=== PATIENT | female | born 1950 | race Caucasian/White ===

== ENCOUNTER → 2020-03-09 12:56 | Outpatient (BNVA) | payer MEDICARE, SELFPAY | PROVIDERS: Referring Provider Internal Medicine; Visit Provider Internal Medicine | DX: I48.92 Unspecified atrial flutter (principal); I48.0 Paroxysmal atrial fibrillation; I25.10 Atherosclerotic heart disease of native coronary artery without angina pectoris; I34.1 Nonrheumatic mitral (valve) prolapse; R29.91 Unspecified symptoms and signs involving the musculoskeletal system | CPT/HCPCS: 93005; 99212 ==

== ENCOUNTER 2020-04-27 13:01 | Outpatient (REF) | payer MEDICARE, SELFPAY ==
[2020-04-27 13:50] LABS: MANUAL DIFF FLAG NO
[2020-04-27 13:57] LABS: Basophils Percent Auto 0.4 % (0-2); Eosinophils Absolute Auto 0.1 X10*3/uL (0.0-0.4); Eosinophils Percent Auto 1.6 % (0-4); Hematocrit 43.1 % (37-47); Hemoglobin 13.7 g/dl (12.0-16.0); Imm Gran Abs Auto 0.01 X10*3/uL (0.00-0.03); Imm Gran Pct Auto 0.2 % (0.0-0.4); Lymphocytes Absolute Auto 1.6 X10*3/uL (1.2-4.9); Mean Corpuscular HGB Conc 31.8 g/dl (31.0-35.0); Mean Corpuscular Hemoglobin 29.6 pg (27.0-33.0); Mean Corpuscular Volume 93.1 fL (80-98); Mean Platelet Volume 9.2 fL (9.4-12.3); Monocytes Absolute Auto 0.6 X10*3/uL (0.1-1.2); Monocytes Percent Auto 12.8 % (2-11); Neutrophils Absolute Auto 2.6 X10*3/uL (2.0-8.3); Platelet Count 213 X10*3/uL (160-400); Red Blood Count 4.63 X10*6/uL (4.20-5.50); Red Cell Distribution Width 13.7 % (11.0-16.0); White Blood Count 4.9 X10*3/uL (4.8-10.8)
[2020-04-27 14:47] LABS: Alanine Aminotransferase 12 U/L (0-31); Alkaline Phosphatase 61 U/L (39-117); Anion Gap 11 (12-20); Aspartate Amino Transferase 16 U/L (5-31); Bilirubin Total 0.9 mg/dL (0.0-1.0); Blood Urea Nitrogen 18 mg/dL (9-16); Calcium 8.8 mg/dL (8.4-10.2); Carbon Dioxide 29 mmol/L (22-29); Chloride 106 mmol/L (96-108); Estimated Glomerular Filt Rate > 60; Glucose Random 84 mg/dL (60-115); Potassium 4.8 mmol/l (3.3-5.1); Sodium 141 mmol/L (135-145); Total Protein 6.7 g/dL (6.5-8.0)
[2020-04-27 14:55] LABS: Thyroid Stimulating Hormone 2.78 uIU/mL (0.32-4.0)
[2020-04-28 14:12] LABS: Anti Nuclear Antibody Screen NEGATIVE (NEGATIVE)
== END 2020-04-27 13:02 | disposition home or self-care (01) ==
LOC: HO.LAB 13:01
PROVIDERS: Absent Provider Internal Medicine; PCP Internal Medicine; Visit Provider Internal Medicine
DX: I48.0 Paroxysmal atrial fibrillation (principal); R63.5 Abnormal weight gain; I10 Essential (primary) hypertension; Q87.40 Marfan syndrome, unspecified
CPT/HCPCS: 36415; 80053; 84443; 85025; 86038; 86039

== ENCOUNTER → 2020-05-17 10:22 | Outpatient (REF) | payer MEDICARE, SELFPAY ==
--- NOTE | 2020-05-17 10:25 | CA_ITS ---
Transthoracic Echocardiogram Patient (Last, First, Middle): Chica Douglas A Gender: Female Date of : 1950 Age: 70 Procedure Date: 05/17/2020 Procedure Type: Transthoracic Echocardiogram Location: OP Height: 167.64 cm Weight: 70.31 kg BSA: 1.79 m2 Heart Rate: bpm BP: 110 / 68 mmHg [employer] Setter: TIARRA Referring MD: Jarett Mendez MD Symptoms: I34.1 - Nonrheumatic mitral (valve) prolapse Study Quality: Technically Difficult ECG Rhythm: Sinus Conclusions: - 1. Technically difficult study and parasternal windows were not obtained due to thoracic abnormality 2. On apical view left ventricular systolic function appears normal with approximate LVEF of 60 65% 3. Valves are not well visualized but there is evidence of mild to-moderate mitral regurgitation 4. Normal RV systolic pressure 5. No gross pericardial effusion Findings Left Ventricle Normal left ventricular size and systolic function. The visually estimated ejection fraction is between 60-65%. Spectral Doppler is indicative of a normal filling pattern. Right Ventricle Normal right ventricular cavity size and systolic function. Atria The left atrium is likely dilated. There is a mobile atrial septum noted. Interatrial shunt cannot be excluded. The right atrium is mildly dilated. Aortic Valve The aortic valve was not well visualized. There is no aortic valve stenosis. Mitral Valve The mitral valve was not well visualized. There is mild anterior mitral leaflet thickening. There is mild to moderate mitral valve regurgitation. There is no mitral valve stenosis. Pulmonic Valve The pulmonic valve was not well visualized. Tricuspid Valve Likely normal tricuspid valve structure and function. The right ventricular systolic pressure is normal. There is no evidence of pulmonary hypertension. Great Vessels The aorta was not well visualized. The pulmonary artery was not well visualized. Venous The inferior vena cava was not well visualized. Pericardium/Pleural The pericardium was not well visualized. Prior Study Comparison No significant change compared to prior study dated: 03/27/2017. Measurements 2D Linear Measurements Ao Root: 3.40 2.1-3.5 cm LA Diam: 3.60 2.7-3.8/3.0-4.0 cm LAIDs Index: 2.01 1.5-2.3 cm/m2 Mitral Valve MV Pk E: 0.97 MV PK A: 0.70 MV Decel Time: 190.00 E/A: 1.40 E'Lateral: 13.10 E'Medial: 5.87 E/E' Med: 16.40 E/E' Lat: 7.40 PHT: 56.00 MVA PHT: 3.93 Decel [place]: 5.08 Aortic Valve AoV Pk [place]: 1.08 AoV Pk Grad: 5.00 LVOT LVOT Pk [place]: 0.74 LVOT Pk Grad: 2.00 Diastolic Function MV Pk E: 0.97 MV Pk A: 0.70 E/A: 1.40 E'Medial: 5.87 E/E' Med: 16.40 E' Laterial: 13.10 E/E' Lat: 7.40 Tricuspid Valve TR Pk [place]: 2.80 TR Pk Grad: 31.00 Great Vessels Aorta Ao Root-2D: 3.40 2.0-3.7 cm Ao Asc: 3.50 2.1-3.4 cm Updated in Other Vendor System with Status of Final Ellis Huffman MD electronically signed on 05/18/2020 12:36:08 PM with status of Final
== END ==
LOC: HO.CARD 10:22
PROVIDERS: Visit Provider Internal Medicine
DX: I34.1 Nonrheumatic mitral (valve) prolapse (principal); I25.10 Atherosclerotic heart disease of native coronary artery without angina pectoris
CPT/HCPCS: 93306

== ENCOUNTER → 2020-06-06 12:16 | Outpatient (BNVA) | payer MEDICARE, SELFPAY | PROVIDERS: PCP Internal Medicine; Visit Provider Internal Medicine | DX: I48.0 Paroxysmal atrial fibrillation (principal); I48.92 Unspecified atrial flutter; I25.10 Atherosclerotic heart disease of native coronary artery without angina pectoris; I34.1 Nonrheumatic mitral (valve) prolapse; R29.91 Unspecified symptoms and signs involving the musculoskeletal system | CPT/HCPCS: 93005; 99212 ==

== ENCOUNTER → 2020-06-15 14:41 | Outpatient (REF) | payer MEDICARE, SELFPAY ==
--- NOTE | 2020-06-15 15:58 | ECG_ITS ---
Hook-up date: 2020-06-15 15:53:00 Duration: 47:59:00 Test Indications: PAF, PALPITATIONS Medications: 231934 QRS complexes 49 Ventricular ectopics which represent <1 % of total QRS comp. 155 Supraventricular ectopics which represent <1 % of total QRS comp. * Paced QRS complexs which represent % of total QRS comp. VENTRICULAR ECTOPY 49 Isolated 0 Bigeminal Cycles 0 Couplets 0 Runs 0 Beats in Runs * Beats LONGEST at * BPM at :: -- * Beats FASTEST at * BPM at :: -- SUPRAVENTRICULAR ECTOPY 127 Isolated 11 Couplets 2 Runs 6 Beats in Runs 3 Beats LONGEST at 159 BPM at 19:23:48 2020-06-15 3 Beats FASTEST at 159 BPM at 19:23:48 2020-06-15 HEART RATES 54 MIN at 05:27:14 2020-06-16 62 AVG 82 MAX at 20:54:01 2020-06-15 LONGEST RR 1.3200 secs at 04:56:13 2020-06-17 S-T LEVELS Channel 1 - 128 mm at 15:53:00 2020-06-15 - 128 mm at 15:53:00 2020-06-15 Channel 2 - 128 mm at 15:53:00 2020-06-15 - 128 mm at 15:53:00 2020-06-15 Channel 3 - 128 mm at 03:51:21 -- - 128 mm at 03:51:21 Basic rhythm Normal sinus rhythm No long pause or profound bradycardia Frequent Sinus bradycardia , 47 % of time HR < 60 bpm No sustained Atrial fibrillation Occasional Premature atrial complexes No diary submitted Referred By: Jarett Mendez Overread By: SETH MARTIN MD
== END ==
LOC: HO.CARD 14:41
PROVIDERS: PCP Internal Medicine; Visit Provider Internal Medicine
DX: R00.2 Palpitations (principal); I48.0 Paroxysmal atrial fibrillation
CPT/HCPCS: 93226

== ENCOUNTER → 2020-07-21 10:23 | Outpatient (BNVA) | payer MEDICARE, SELFPAY | PROVIDERS: PCP Internal Medicine; Visit Provider Internal Medicine | DX: I48.0 Paroxysmal atrial fibrillation (principal); I48.92 Unspecified atrial flutter; I25.10 Atherosclerotic heart disease of native coronary artery without angina pectoris; I34.1 Nonrheumatic mitral (valve) prolapse; R29.91 Unspecified symptoms and signs involving the musculoskeletal system | CPT/HCPCS: 93005; 99212 ==

== ENCOUNTER 2020-12-02 12:39 | Outpatient (REF) | payer MEDICARE, SELFPAY ==
--- NOTE | ~2020-12-02 | MM_ITS ---
EXAMINATION: MM DIAGNOSTIC DIGITAL BREAST TOMOSYNTHESIS, BILATERAL US DIAGNOSTIC ULTRASOUND BREAST, LEFT CLINICAL INFORMATION: Palpable fullness and pain retroareolar left breast for 2 weeks, symptoms improved on antibiotics for approximately one week. Due for yearly. Family history breast cancer, maternal aunt. The lifetime risk of breast cancer based on the Tyrer-Cuzick Model is 5%. COMPARISON: Mammography: 02/08/2017, 11/17/2014, targeted right breast ultrasound 11/17/2014,02/08/2017, 02/09/2017. TECHNIQUE: Digital breast tomosynthesis is performed in both the craniocaudal and mediolateral oblique views along with computer-aided detection (CAD). Synthesized 2D images are generated from the tomosynthesis. Additional views are provided: Right CC, left CC x2. Ultrasound left breast is targeted to the nipple areolar complex, retroareolar and periareolar region. Grayscale imaging and color Doppler are performed without and with harmonics. FINDINGS: There are scattered areas of fibroglandular density (ACR BI-RADS breast composition Category b). Parenchymal pattern is similar to prior study. There is no skin thickening or coarsening of the Cosmo's ligaments. No interval parenchymal asymmetry or mass or architectural abnormality. No abnormal calcifications. Known cyst posterior 3:00 right breast is moderately decreased from prior exams. Ultrasound left breast demonstrates no cystic or solid mass, architectural abnormality, or focal duct ectasia. No focal skin thickening or edema tracking in the soft tissue planes. No hyperemia. Results are discussed with the patient at time of visit. MM/MM tomosynthesis diagnostic BI IMPRESSION: 1. No mammographic evidence of malignancy or focal inflammatory changes. 2. Unremarkable targeted left breast ultrasound. ASSESSMENT: BI-RADS 2: Benign RECOMMENDATION: 1. Patient should be managed based on the clinical impression. 2. Otherwise, routine annual screening mammography. This patient's information was entered into a reminder system with a target due date for their next mammogram.
== END 2020-12-02 12:40 | disposition home or self-care (01) ==
LOC: HO.MAMMO 12:39
PROVIDERS: PCP Internal Medicine; Visit Provider Internal Medicine
DX: N60.02 Solitary cyst of left breast (principal); Z80.3 Family history of malignant neoplasm of breast
CPT/HCPCS: 76642; 77062; 77066

== ENCOUNTER 2021-01-11 12:51 | Outpatient (REF) | payer MEDICARE, SELFPAY ==
--- NOTE | ~2021-01-11 | MM_ITS ---
EXAMINATION: BONE DENSITOMETRY CLINICAL INDICATION: Menopausal. COMPARISON: Previous BD dated 10/31/2009 and baseline BD dated 05/08/2005. TECHNIQUE: Using a Qype DXA System (software version: 13.1) manufactured by [employer], dual-energy x-ray absorptiometry was performed of the lumbar spine and left hip. The images are of good technical quality. Summary results are attached. FINDINGS: AP SPINE L1-L4: There is curvature lumbar spine and degenerative changes which may cause overestimation of the lumbar bone mineral density. Current: BMD 0.834 g/cm2, Z-score -1.4, T-score -2.9, osteoporosis, 4.0% decrease from previous, 10.7% decrease from baseline (<5% change is not significant). Prior: BMD 0.869 g/cm2. Baseline: BMD 0.934 g/cm2. LEFT FEMUR, NECK: Current: BMD 0.573 g/cm2, Z-score -1.7, T-score -3.3, osteoporosis. Prior: BMD 0.785 g/cm2. Baseline: BMD 0.793 g/cm2. LEFT FEMUR, TOTAL: Current: BMD 0.601 g/cm2, Z-score -1.8, T-score -3.2, osteoporosis, 18.1% decrease from previous, 19.2% decrease from baseline (<5% change is not significant). Prior: BMD 0.734 g/cm2. Baseline: BMD 0.744 g/cm2. IDENTIFIED RISK FACTORS: Menopause, family history (parent hip fracture), height loss, low calcium intake. HISTORY OF FRACTURE: None listed. MEDICATIONS: None listed. MM/XR DEXA axial skeleton IMPRESSION: 1. DIAGNOSIS: Osteoporosis based on the lowest T-score value of -3.3 in the femoral neck applying World Health Organization criteria. 2. 10-YEAR FRACTURE RISK PREDICTION, FRAX: Major osteoporotic fracture (clinical spine, forearm, hip or shoulder) 42.0%. Hip fracture 27.8%. 3. Treatment Recommendations: NOF guidelines recommend consideration for treatment in postmenopausal women and men age 50 and older presenting with the following: -A hip or vertebral (clinical or morphometric) fracture. -T-score less than or equal to -2.5 at the femoral neck or spine after appropriate evaluation to exclude secondary causes. -Low bone mass at the hip or spine and a 10-year fracture probability by FRAX of greater than or equal to 3% for hip fracture or greater than or equal to 20% for major osteoporotic fracture based on the [place] adapted WHO algorithm. 4. Other Recommendations: All treatment decisions require clinical judgment and consideration of individual patient factors, including patient preferences, comorbidities, previous drug use, risk factors not captured in the FRAX model (e.g. frailty, falls, vitamin D deficiency, increased bone turnover, interval significant decline in bone density) and possible under or overestimation of fracture risk by FRAX. Additional medical evaluation for secondary cause of low bone mineral density may be appropriate. FUTURE SCAN RECOMMENDATION: People with diagnosed cases of osteoporosis or at high risk for fracture should have regular bone mineral density tests. For patients eligible for Medicare, routine testing is allowed once every 2 years. The testing frequency can be increased to one year for patients who have rapidly progressing disease, those who are receiving or discontinuing medical therapy to restore bone mass, or have additional risk factors.
== END 2021-01-11 12:52 | disposition home or self-care (01) ==
LOC: HO.MAMMO 12:51
PROVIDERS: Visit Provider Obstetrics & Gynecology
DX: Z13.820 Encounter for screening for osteoporosis (principal); Z78.0 Asymptomatic menopausal state
CPT/HCPCS: 77080

== ENCOUNTER → 2021-01-19 10:24 | Outpatient (BNVA) | payer MEDICARE, SELFPAY | PROVIDERS: PCP Internal Medicine; Referring Provider Internal Medicine; Visit Provider Internal Medicine | DX: I48.0 Paroxysmal atrial fibrillation (principal); I48.92 Unspecified atrial flutter; I25.10 Atherosclerotic heart disease of native coronary artery without angina pectoris; I34.1 Nonrheumatic mitral (valve) prolapse; I71.9 Aortic aneurysm of unspecified site, without rupture; R29.91 Unspecified symptoms and signs involving the musculoskeletal system | CPT/HCPCS: 93005; 99212 ==

== ENCOUNTER 2021-07-18 09:04 | Outpatient (REF) | payer MEDICARE, SELFPAY ==
[2021-07-18 11:15] LABS: MANUAL DIFF FLAG NO
[2021-07-18 11:41] LABS: Basophils Percent Auto 0.4 % (0-2); Eosinophils Absolute Auto 0.1 X10*3/uL (0.0-0.4); Eosinophils Percent Auto 1.9 % (0-4); Hematocrit 47.7 % (37.0-47.0); Hemoglobin 14.6 g/dl (12.0-16.0); Imm Gran Abs Auto 0.01 X10*3/uL (0.00-0.03); Imm Gran Pct Auto 0.2 % (0.0-0.4); Lymphocytes Absolute Auto 1.6 X10*3/uL (1.2-4.9); Lymphocytes Percent Auto 32.7 % (20-40); Mean Corpuscular HGB Conc 30.6 g/dl (31.0-35.0); Mean Corpuscular Hemoglobin 29.1 pg (27.0-33.0); Mean Corpuscular Volume 95.2 fL (80.0-98.0); Mean Platelet Volume 9.4 fL (9.4-12.3); Monocytes Absolute Auto 0.6 X10*3/uL (0.1-1.2); Monocytes Percent Auto 12.8 % (2-11); Neutrophils Absolute Auto 2.5 x10*3/uL (2.0-8.3); Platelet Count 218 X10*3/uL (160-400); Red Blood Count 5.01 X10*6/uL (4.20-5.50); Red Cell Distribution Width 14.3 % (11.0-16.0); White Blood Count 4.9 X10*3/uL (4.8-10.8)
[2021-07-18 12:02] LABS: Alanine Aminotransferase 10 U/L (0-31); Albumin Level 3.8 g/dL (3.5-5.0); Alkaline Phosphatase 54 U/L (39-117); Anion Gap 11 (12-20); Aspartate Amino Transferase 15 U/L (5-31); Bilirubin Total 0.8 mg/dL (0.0-1.0); Blood Urea Nitrogen 15 mg/dL (9-16); Calcium 9.1 mg/dL (8.4-10.2); Carbon Dioxide 30 mmol/L (22-29); Chloride 105 mmol/L (96-108); Cholesterol 256 mg/dL; Estimated Glomerular Filt Rate > 60; Glucose Fasting 90 mg/dL (60-99); HDL Cholesterol 54 mg/dL; LDL Cholesterol Calculated 184 mg/dl; Potassium 4.5 mmol/L (3.3-5.1); Sodium 141 mmol/L (135-145); Total Protein 6.8 g/dL (6.5-8.0); Triglycerides 93 mg/dL
[2021-07-18 12:06] LABS: Thyroid Stimulating Hormone 3.37 uIU/mL (0.32-4.0)
== END 2021-07-18 09:05 | disposition home or self-care (01) ==
LOC: HO.HMGCLDS 09:04
PROVIDERS: PCP Internal Medicine; Visit Provider Internal Medicine
DX: I25.10 Atherosclerotic heart disease of native coronary artery without angina pectoris (principal); I48.0 Paroxysmal atrial fibrillation; E78.00 Pure hypercholesterolemia, unspecified; M81.0 Age-related osteoporosis without current pathological fracture
CPT/HCPCS: 36415; 80053; 80061; 82306; 84443; 85025

== ENCOUNTER 2021-07-27 13:42 | Outpatient (REF) | payer MEDICARE, SELFPAY ==
--- NOTE | ~2021-07-27 | CT_ITS ---
EXAMINATION: CT ANGIOGRAM CHEST CLINICAL INFORMATION: Aortic aneurysm COMPARISON: Chest CT on 08/12/2019 TECHNIQUE: Multiple axial images were obtained through the chest after the administration of 70 mL of Omnipaque 350 intravenous contrast. Extensive vascular post-processing including two-dimensional and three-dimensional reformatted images were created and reviewed on an independent workstation. This CT examination was performed using dose optimization techniques as appropriate, variously including the following: *Automated exposure control *Adjustment of mA and/or kV according to patient size (this includes techniques or standardized protocols for targeted exams where dose is matched to indication/reason for exam; i.e. extremities or head) *Use of iterative reconstruction technique DLP: 136 mGy-cm FINDINGS: Heart/Aorta: Severe pectus excavatum. The heart is globally normal in size. The coronary arteries arise from the expected coronary sinuses; there is no anomaly of coronary arterial origin. The thoracic aorta is normal in course and caliber. Mild calcific atherosclerotic disease. There is no evidence of aortic dissection, intramural hematoma, or atherosclerotic penetrating ulcer. Aortic arch anatomy is conventional. Other Cardiovascular: The main pulmonary artery is normal in caliber. The well opacified portions of the pulmonary arterial system are patent. There is no pericardial effusion or pericardial thickening. Mediastinum/Debbi: There are no pathologically enlarged mediastinal or hilar lymph nodes. Pleura: The pleural surfaces are normal bilaterally. There is no pleural effusion. There is no pneumothorax. Lungs: Posterior bibasilar atelectasis. There are scattered areas of tree-in-bud opacities and groundglass attenuation in the right middle and anterior right lower lobes. Airways: The central airways are patent. The peripheral airways are normal. There is no bronchiectasis. Upper Abdomen: The incompletely imaged upper abdomen is unremarkable. Musculoskeletal: There is no aggressive osseous lesion. The structures of the chest wall, including the bones, are normal for age. CT/CT angio chest aorta IMPRESSION: 1. Normal caliber thoracic aorta. 2. Redemonstration of scattered areas of tree-in-bud opacities groundglass attenuation consistent with infection/inflammatory disease.
[2021-07-27] MEDS: iohexoL 350 MG/ML 100 ML INFUS..BTL IV (15:24)
== END 2021-07-27 13:43 | disposition home or self-care (01) ==
LOC: HO.CT 13:42
PROVIDERS: Visit Provider Internal Medicine
DX: I71.9 Aortic aneurysm of unspecified site, without rupture (principal); R29.91 Unspecified symptoms and signs involving the musculoskeletal system
CPT/HCPCS: 71275; Q9967

== ENCOUNTER → 2021-09-19 12:52 | Outpatient (REF) | payer MEDICARE, SELFPAY ==
--- NOTE | 2021-09-19 12:55 | CA_ITS ---
Transthoracic Echocardiogram Patient (Last, First, Middle): Chica Douglas A Gender: Female Date of : 1950 Age: 71 Procedure Date: 09/19/2021 Procedure Type: Transthoracic Echocardiogram Location: OP Height: 167.64 cm Weight: 72.58 kg BSA: 1.82 m2 Heart Rate: bpm BP: 116 / 60 mmHg [place]: Referring MD: Jarett Mendez MD Symptoms: I34.1 - Nonrheumatic mitral (valve) prolapse Study Quality: Technically Difficult ECG Rhythm: Sinus Conclusions: - The left ventricular systolic function is normal. The visually estimated ejection fraction is between 60-65%. - There is moderate posterior mitral leaflet prolapse. There is mild mitral valve regurgitation. - Mild pulmonary hypertension is present. Findings Left Ventricle Normal left ventricular cavity size. There is mildly increased left ventricular wall thickness. The left ventricular systolic function is normal. The visually estimated ejection fraction is between 60-65%. Regional wall motion abnormalities can not be excluded due to suboptimal endocardial definition. Diastolic function is normal for age. Right Ventricle The right ventricle was not well visualized. Normal right ventricular cavity size. There is normal right ventricular systolic function. Atria Both atria are normal in size. Aortic Valve There is a normal trileaflet aortic valve. There is no aortic valve stenosis. There is trace (trivial) aortic valve regurgitation. 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 There is mild mitral annular calcification. There is moderate posterior mitral leaflet prolapse. There is mild mitral valve regurgitation. There is no mitral valve stenosis. Pulmonic Valve The pulmonic valve was not well visualized. Tricuspid Valve The tricuspid valve was not well visualized. There is trace tricuspid valve regurgitation. The right ventricular systolic pressure is 39 mmHg. Mild pulmonary hypertension is present. Great Vessels The asc aorta is normal in size. Venous The inferior vena cava was not well visualized. Pericardium/Pleural There is no evidence of pericardial effusion. Prior Study Comparison No significant change compared to prior study dated: 05/17/2020. Measurements 2D Linear Measurements IVSd: 1.06 0.6-0.9/0.6-1.0 cm LVIDd: 4.65 3.9-5.3/4.2-5.9 cm LVIDd Index: 2.55 2.4-3.2/2.2-3.1 cm/m2 LVIDs: 2.89 2.0-3.6 cm LVPWd: 1.16 0.7-1.1 cm Ao Root: 3.50 2.1-3.5 cm LA Diam: 3.80 2.7-3.8/3.0-4.0 cm LAIDs Index: 2.09 1.5-2.3 cm/m2 LV Mass: 232.65 67-162/88-224 g LV Mass Index: 127.83 43-95/49-115 g/m2 LVOT Diam: 2.40 3.0+(-)1.3 cm 2D Systolic Function EF 4C: 50.40 >55% EF 2C: 80.60 >55% Mitral Valve MV Pk E: 0.73 MV PK A: 0.58 MV Decel Time: 238.00 E/A: 1.30 E'Lateral: 7.72 E'Medial: 5.98 E/E' Med: 12.20 E/E' Lat: 9.40 PHT: 70.00 MVA PHT: 3.14 Decel [place]: 3.06 Aortic Valve AoV Pk [place]: 1.23 AoV Mn [place]: 0.82 AoV VTI: 0.32 AoV Pk Grad: 6.00 Aov Mn Grad: 3.00 JOE Cont.VTI: 3.01 LVOT LVOT Pk [place]: 0.88 LVOT Mn [place]: 0.52 LVOT VTI: 0.21 LVOT Pk Grad: 3.00 LVOT Mn Grad: 1.00 LVOT Diam: 2.40 LVOT Area: 4.52 Diastolic Function MV Pk E: 0.73 MV Pk A: 0.58 E/A: 1.30 E'Medial: 5.98 E/E' Med: 12.20 E' Laterial: 7.72 E/E' Lat: 9.40 Right Ventricle TAPSE (mm): 21.20 TVS' [place]: 7.29 Tricuspid Valve TR Pk [place]: 2.91 TR Pk Grad: 34.00 RVSP: 39.00 Great Vessels Aorta Ao Root-2D: 3.50 2.0-3.7 cm Sinus of Valsalva: 3.50 2.0-3.5 cm Ao Asc: 3.00 2.1-3.4 cm Pulmonary Valve PV Pk [place]: 0.69 Peak PV Grad: 2.00 Updated in Other Vendor System with Status of Final Jarett Mendez MD electronically signed on 09/24/2021 1:16:40 PM with status of Final
== END ==
LOC: HO.CARD 12:52
PROVIDERS: Visit Provider Internal Medicine
DX: I34.1 Nonrheumatic mitral (valve) prolapse (principal)
CPT/HCPCS: 93306

== ENCOUNTER → 2021-09-25 14:28 | Outpatient (BNVA) | payer MEDICARE, SELFPAY | PROVIDERS: PCP Internal Medicine; Referring Provider Internal Medicine; Visit Provider Internal Medicine | DX: R53.83 Other fatigue (principal); I48.0 Paroxysmal atrial fibrillation; I48.92 Unspecified atrial flutter; I25.10 Atherosclerotic heart disease of native coronary artery without angina pectoris; I34.1 Nonrheumatic mitral (valve) prolapse; R29.91 Unspecified symptoms and signs involving the musculoskeletal system | CPT/HCPCS: 93005; 99212 ==

== ENCOUNTER 2021-09-26 23:59 | Emergency (ER) | payer MEDICARE, SELFPAY ==
[2021-09-27 00:09] VITALS: BP 126/73; BP 150/88; PULSE 64; RESP 18; TEMP 36.4; O2SAT 92; O2SAT 94; BMI 26.6
--- NOTE | 2021-09-27 00:09 | ED_ITS ---
History of Present Illness General Chief Complaint: Epistaxis Stated Complaint: nose bleed Time Seen by Provider: 09/27/21 00:09 Source: patient and EMS Mode of arrival: EMS Limitations: no limitations History of Present Illness HPI Narrative: This is a 71-year-old female past medical history significant for atrial fibrillation currently anticoagulated on Eliquis, hypertension, arthrosclerotic cardiovascular disease presenting to the emergency department with a bloody nose since around 10 30 tonight. Patient tells me this bloody nose started suddenly after she took her Eliquis. She tells me she takes Eliquis twice a day once in the morning and once at night. Patient tells me she tried to apply some press ure however a CT bleeding. She tells me she had a similar episode last . She is also reporting urinary frequency, urgency and suprapubic discomfort. Denies headache, weakness, vision changes, nausea, vomiting, chest pain, shortness of breath fevers, chills. No known bleeding disorder. Denies trauma Location: Yes right nares Onset/current episode: Yes hour(s) (2) Duration: Yes constant Pertinent past history: Yes hypertension Context: Yes history of previous nose bleed (last ) Treatment prior to arrival: Yes none Related Data Home Medications Medication Instructions Recorded Confirmed alprazolam 0.25 mg tablet 0.25 mg PO BID-TID 03/09/20 09/25/21 bimatoprost 0.01 % eye drops drp ophthalmic (eye) 06/06/20 09/25/21 Previous Rx's Medication Instructions Recorded metoprolol tartrate 25 mg tablet 25 mg PO TID 90 days #270 tabs 11/14/20 apixaban 5 mg tablet (Eliquis) 5 mg PO BID 90 days #180 tabs 02/22/21 furosemide 40 mg tablet 40 mg PO DAILY #90 tabs 02/27/21 dronedarone 400 mg tablet (Multaq) 400 mg PO BID #180 tabs 06/06/21 cefuroxime axetil 250 mg tablet 250 mg PO BID 5 days #10 tabs 09/27/21 Allergies Allergy/AdvReac Type Severity Reaction Status Date / Time ciprofloxacin [CIPROFLOXACIN] Allergy Intermediate RASH Verified 09/27/21 00:09 atorvastatin [Lipitor] Allergy Unknown unknown Verified 09/27/21 00:09 Penicillins [PENICILLINS] Allergy Unknown RASH Verified 09/27/21 00:09 shellfish derived Allergy Unknown UNKNOWN Verified 09/27/21 00:09 [SHELLFISH DERIVED] Sulfa (Sulfonamide Allergy Unknown ITCHY, ? Verified 09/27/21 00:09 Antibiotics) [SULFA (SULFONAMIDE ANTIBIOTICS)] Review of Systems Review of Systems: Constitutional : No Weight loss, No Fever, No Chills, No Fatigue, No Malaise ENT/Mouth : No sore throat, No Rhinorrhea Eyes: No Eye Pain, No Swelling, No Redness Cardiovascular : No Chest Pain, No SOB, No Dyspnea on Exertion, No Orthopnea, No Edema, No Palpitations Respiratory : No Cough, No Sputum, No Wheezing Gastrointestinal : No Nausea, No Vomiting, No Diarrhea, No Constipation, No abdominal Pain, No Hematochezia, No Melena Genitourinary : No Dysuria, No Urinary Frequency, No Hematuria, Musculoskeletal : No joint pain, No Myalgias, No Joint Swelling Skin : No Skin Lesions, No rash Neuro : No Weakness, No Numbness, No Dizziness, No Headache Psych : No Anxiety/Panic, No Depression Heme/Lymph: No Bruising, + Bleeding,No Lymphadenopathy All other systems reviewed and are negative Yes all other systems are reviewed and are negative [facility] Past Medical History Attestation statement: The following information was validated with the patient. Source: old records reviewed and nursing notes reviewed Surgical History History of cardioversion Family History Family History Father No problems noted. Mother No problems noted. Social History Social History Alcohol intake: never Patient Tobacco Use Status: Former Tobacco user Use of substances other than those prescribed or required for medical reasons: No Advance Directives: No Physical Exam Vital Signs: Vital Signs: Last Vital Signs Temp 97.6 F 09/27/21 00:09 Pulse 58 09/27/21 01:48 Resp 18 09/27/21 01:48 BP 122/66 09/27/21 01:48 Pulse Ox 90 L 09/27/21 01:48 O2 Del Method 06/15/22 01:48 BMI result Body Mass Index 26.6 Appearance: Alert.? Oriented X3.? No acute distress.? Head: Normocephalic, atraumatic, no step-offs or deformities Eyes: Pupils equal, round and reactive to light.? ENT: Pharynx normal.?+ active bleeding from the right nares Neck: Normal inspection.? Neck supple.? CVS: Normal heart rate and rhythm.? Pulses normal.? Respiratory: No respiratory distress.? Breath sounds normal.? Abdomen: Soft and nontender.? Skin: Skin warm and dry.? Normal skin color.? Normal skin turgor.? Extremities: No lower extremity edema.? No calf ttp. 5/5 strength to bilateral upper and lower extremities Back: No midline tenderness, no C-spine tenderness, full range of motion, no CVA tenderness bilaterally Neuro: Oriented X 3.? No motor deficit.? No sensory deficit. CN 2-12 intact Course Reevaluation(s) Reevaluation #1: CBC within normal limits no signs of acute blood loss anemia. Chemistry with no acute findings. Urine pending. After administration of Afrin patient's nose is no longer bleeding. Time: 01:30 Reevaluation #2: Patient's urine with trace leukocyte esterases she is reporting urinary frequency, urgency and suprapubic discomfort therefore will treat for symptoms with antibiotics Ceftin 250 mg p.o. b.i.d. x7 days. Advised her to return with new or worsening symptoms. At this time patient's nosebleed completely stopped. Time: 01:59 Reevaluation #3: Re-evaluated patient. She tells me she is much better, no longer bleeding. At this time patient will be discharged home will give her follow-up with ENT. Advised her to follow-up with her inventory controller who is her Eliquis prescriber. Patient hemodynamically stable with stable vital signs. No complaints. She will be discharged on Ceftin for symptomatic UTI. Time: 02:32 MDM - Epistaxis [facility] Narrative Medical decision making narrative: 0013 71-year-old female presents with epistaxis x2 hours from the right nares. Currently on Eliquis. Similar episode last . Also reports urinary frequency, urgency x1 week and suprapubic discomfort. Physical examination significant for active bleeding to the right nares. Regular rate and rhythm. Lungs clear. Abdomen soft nontender nondistended. Neuro exam nonfocal. Vital signs stable. Plan at this time is to obtain basic labs, urine and spray Afrin into patient's nose and hold pressure. Medical Records Attestation: I reviewed the patient's medical records. Lab Data Attestation: I reviewed the patient's lab results. Result diagrams: 09/27/21 00:42 09/27/21 00:42 Labs: Lab Results 09/27/21 09/27/21 09/27/21 Range/Units 00:42 00:42 01:19 WBC 5.0 (4.8-10.8) X10*3/uL RBC 4.61 (4.20-5.50) X10*6/uL Hgb 13.4 (12.0-16.0) g/dl Hct 42.2 (37.0-47.0) % MCV 91.5 (80.0-98.0) fL MCH 29.1 (27.0-33.0) pg MCHC 31.8 (31.0-35.0) g/dl RDW 14.1 (11.0-16.0) % Plt Count 176 (160-400) X10*3/uL MPV 9.0 L (9.4-12.3) fL Immature Gran % (Auto) 0.2 (0.0-0.4) % Neut % (Auto) 49.2 (45-73) % Lymph % (Auto) 33.5 (20-40) % [place] % (Auto) 14.9 H (2-11) % Eos % (Auto) 2.0 (0-4) % Baso % (Auto) 0.2 (0-2) % Lymph # (Auto) 1.7 (1.2-4.9) X10*3/uL [place] # (Auto) 0.7 (0.1-1.2) X10*3/uL Eos # (Auto) 0.1 (0.0-0.4) X10*3/uL Baso # (Auto) 0.0 (0.0-0.2) X10*3/uL Abs Immat Gran (auto) 0.01 (0.00-0.03) X10*3/uL Absolute Neuts (auto) 2.4 (2.0-8.3) x10*3/uL Absolute Nucleated RBC 0.000 (0.0-0.012) X10*3/uL Nucleated RBC % (auto) 0.0 (0.0-0.2) /100WBC Sodium 137 (135-145) mmol/L Potassium 4.5 (3.3-5.1) mmol/L Chloride 103 (96-108) mmol/L Carbon Dioxide 27 (22-29) mmol/L Anion Gap 12 (12-20) BUN 15 (9-16) mg/dL Creatinine 0.73 (0.5-1.4) mg/dL Estim Creat Clear Calc 71.0 Estimated GFR > 60 Random Glucose 102 (60-115) mg/dL Calcium 8.7 (8.4-10.2) mg/dL Total Bilirubin 0.7 (0.0-1.0) mg/dL AST 20 (5-31) U/L ALT 9 (0-31) U/L Alkaline Phosphatase 58 (39-117) U/L Total Protein 6.5 (6.5-8.0) g/dL Albumin 3.6 (3.5-5.0) g/dL Urine Color YELLOW Urine Appearance CLEAR Urine pH 6.5 (5.0-8.0) Ur Specific [place] <= 1.005 (1.005-1.025) Urine Protein NEG (NEG-TRACE) MG/DL Urine Glucose (UA) NEG (NEG) MG/DL Urine Ketones NEG (NEG) MG/DL Urine Blood NEG (NEG) Urine Nitrite NEG (NEG) Ur Leukocyte Esterase TRACE H (NEG) Urine RBC 1-4 (0) /HPF Urine WBC 1-4 (0-4) /HPF Ur Squamous Epith Cells 1+ /LPF Urine Bacteria 1+ /LPF Critical Care Time Critical Care Time Critical Care Time: No Discharge Plan Discharge Clinical Impression: Epistaxis, Acute UTI Patient Disposition: Home, Self-Care Instructions: Nosebleed (ED), Urinary Tract Infection in Older Adults (ED) Additional Instructions: Take your medications as prescribed. If you were prescribed antibiotics today, it is important that you take your medication to their entirety, do not skip any doses, do not finish them early. Follow-up with your primary care provider this week. Please also follow-up with your inventory controller within a week. Return to the emergency department with new or worsening symptoms. Such as fevers, chills, chest pain, shortness of breath, nausea, vomiting, dizziness, headache, vision changes, lethargy, weakness, nose bleed Review of another nosebleed did advise you to be evaluated in the emergency department as you are on anticoagulants. In case of emergency call 911 [facility] [phone] [address] [facility] [address], [facility] [address] Prescriptions: New cefuroxime axetil 250 mg tablet 250 mg PO BID 5 Days Qty: 10 0RF No Action metoprolol tartrate 25 mg tablet 25 mg PO TID 90 Days Qty: 270 3RF Eliquis 5 mg tablet 5 mg PO BID 90 Days Qty: 180 3RF furosemide 40 mg tablet 40 mg PO DAILY Qty: 90 2RF Multaq 400 mg tablet 400 mg PO BID Qty: 180 3RF Lumigan 0.01 % drops ophthalmic (eye) alprazolam 0.25 mg tablet 0.25 mg PO BID-TID Referrals: Harrison Gautam [Physician] - 1 week Stand Alone Forms: Work/School Release
[2021-09-27] MEDS: Oxymetazoline HCl 0.05 % Nasal 15 ML SPRAY 2 SPRAY NOSTRIL-B (00:23)
--- NOTE | 2021-09-27 00:25 | PC.NURSE ---
2 sprays of afrin administered to both nostrils, pt holding pressure.
[2021-09-27 00:47] LABS: Basophils Percent Auto 0.2 % (0-2); Eosinophils Absolute Auto 0.1 X10*3/uL (0.0-0.4); Hematocrit 42.2 % (37.0-47.0); Hemoglobin 13.4 g/dl (12.0-16.0); Imm Gran Abs Auto 0.01 X10*3/uL (0.00-0.03); Imm Gran Pct Auto 0.2 % (0.0-0.4); Lymphocytes Absolute Auto 1.7 X10*3/uL (1.2-4.9); Lymphocytes Percent Auto 33.5 % (20-40); MANUAL DIFF FLAG NO; Mean Corpuscular HGB Conc 31.8 g/dl (31.0-35.0); Mean Corpuscular Hemoglobin 29.1 pg (27.0-33.0); Mean Corpuscular Volume 91.5 fL (80.0-98.0); Monocytes Absolute Auto 0.7 X10*3/uL (0.1-1.2); Monocytes Percent Auto 14.9 % (2-11); Neutrophils Absolute Auto 2.4 x10*3/uL (2.0-8.3); Neutrophils Percent Auto 49.2 % (45-73); Platelet Count 176 X10*3/uL (160-400); Red Blood Count 4.61 X10*6/uL (4.20-5.50); Red Cell Distribution Width 14.1 % (11.0-16.0)
[2021-09-27 01:20] LABS: Alanine Aminotransferase 9 U/L (0-31); Albumin Level 3.6 g/dL (3.5-5.0); Alkaline Phosphatase 58 U/L (39-117); Anion Gap 12 (12-20); Aspartate Amino Transferase 20 U/L (5-31); Bilirubin Total 0.7 mg/dL (0.0-1.0); Blood Urea Nitrogen 15 mg/dL (9-16); Calcium 8.7 mg/dL (8.4-10.2); Carbon Dioxide 27 mmol/L (22-29); Chloride 103 mmol/L (96-108); Estimated Glomerular Filt Rate > 60; Glucose Random 102 mg/dL (60-115); Potassium 4.5 mmol/L (3.3-5.1); Sodium 137 mmol/L (135-145); Total Protein 6.5 g/dL (6.5-8.0)
[2021-09-27 01:26] LABS: Appearance Urine CLEAR; Color Urine YELLOW; Glucose Urine UA NEG (NEG); Leukocyte Esterase Urine TRACE (NEG); Nitrite Urine NEG (NEG); PH 6.5 (5.0-8.0); Specific Gravity - Urine <= 1.005 (1.005-1.025); Urine Blood NEG (NEG); Urine Ketones NEG (NEG); Urine Protein NEG (NEG-TRACE)
[2021-09-27 01:39] LABS: Bacteria Urine 1+ /LPF; Squamous Epithelial Cell Urine 1+ /LPF
[2021-09-27 01:48] VITALS: BP 122/66; PULSE 58; RESP 18; O2SAT 90
== END 2021-09-27 02:46 | disposition home or self-care (01) ==
PROVIDERS: Physician Assistant; Emergency Provider Internal Medicine; PCP Internal Medicine
DX: R04.0 Epistaxis (principal); N39.0 Urinary tract infection, site not specified; I10 Essential (primary) hypertension; I48.91 Unspecified atrial fibrillation; Z79.01 Long term (current) use of anticoagulants
CPT/HCPCS: 80053; 81001; 85025; 99283; 99284

== ENCOUNTER 2021-09-30 01:47 | Emergency (ER) | payer MEDICARE, SELFPAY ==
[2021-09-30 02:07] VITALS: BP 150/75; PULSE 66; RESP 18; TEMP 36.5; O2SAT 90; BMI 25.4
[2021-09-30 03:04] LABS: Basophils Percent Auto 0.4 % (0-2); Eosinophils Absolute Auto 0.1 X10*3/uL (0.0-0.4); Eosinophils Percent Auto 1.6 % (0-4); Hematocrit 43.4 % (37.0-47.0); Hemoglobin 13.7 g/dl (12.0-16.0); Imm Gran Abs Auto 0.02 X10*3/uL (0.00-0.03); Imm Gran Pct Auto 0.4 % (0.0-0.4); Lymphocytes Absolute Auto 1.4 X10*3/uL (1.2-4.9); Lymphocytes Percent Auto 27.8 % (20-40); MANUAL DIFF FLAG NO; Mean Corpuscular HGB Conc 31.6 g/dl (31.0-35.0); Mean Corpuscular Volume 91.8 fL (80.0-98.0); Mean Platelet Volume 9.1 fL (9.4-12.3); Monocytes Absolute Auto 0.6 X10*3/uL (0.1-1.2); Monocytes Percent Auto 12.4 % (2-11); Neutrophils Percent Auto 57.4 % (45-73); Platelet Count 190 X10*3/uL (160-400); Red Blood Count 4.73 X10*6/uL (4.20-5.50); White Blood Count 5.2 X10*3/uL (4.8-10.8)
[2021-09-30 03:10] LABS: Prothrombin Time 11.1 SEC (9.9-13.0)
[2021-09-30 03:25] LABS: Alanine Aminotransferase 12 U/L (0-31); Albumin Level 3.9 g/dL (3.5-5.0); Alkaline Phosphatase 60 U/L (39-117); Anion Gap 11 (12-20); Aspartate Amino Transferase 16 U/L (5-31); Bilirubin Total 0.9 mg/dL (0.0-1.0); Blood Urea Nitrogen 14 mg/dL (9-16); Calcium 9.1 mg/dL (8.4-10.2); Carbon Dioxide 26 mmol/L (22-29); Chloride 106 mmol/L (96-108); Creatinine Clr Calc Pharmacy 67.7; Estimated Glomerular Filt Rate > 60; Glucose Random 102 mg/dL (60-115); Potassium 4.3 mmol/L (3.3-5.1); Sodium 139 mmol/L (135-145); Total Protein 6.8 g/dL (6.5-8.0)
--- NOTE | 2021-09-30 03:33 | PC.NURSE ---
Assumed care of pt Pt c/o nosebleed from RT nostril starting around 0020 to 0110. Per pt, felt pressure in her ears and when she got up to go to bathroom, nose started bleeding Per pt, put a tampon up the nose and held pressure. After nose stopped bleeding, pt administered afrin to both nostrils Per pt, was seen here on 09/27 for same complaint. Pt has ENT appointment in December Pt taking eloquis, was told to stop yesterday. Currently, no bleeding noted. deneis any bleeding in back of throat NAD Will continue to monitor
[2021-09-30 04:28] VITALS: BP 140/67; PULSE 58; RESP 16; TEMP 36.6; O2SAT 90
[2021-09-30 06:18] VITALS: BP 126/59; PULSE 62; RESP 19; TEMP 36.6; O2SAT 95
--- NOTE | 2021-09-30 07:23 | ED_ITS ---
HPI - General Adult General Chief complaint: General Medical Stated complaint: nose bleed (4th in 6 days), headache, nausea Time Seen by Provider: 09/30/21 07:23 Source: patient and family Mode of arrival: ambulatory History of Present Illness HPI narrative: 71-year-old female with history of atrial fibrillation currently on Eliquis his began having issues with recurrent episodes of epistaxis. Patient also informs me that she runs a 85-87% oxygenation on room air at baseline and she is followed by sole molding machine operator who is aware of her oxygenation status and she has not been started on oxygen. She states that she is otherwise in good health. Related Data Home Medications Medication Instructions Recorded Confirmed alprazolam 0.25 mg tablet 0.25 mg PO BID-TID 03/09/20 09/25/21 bimatoprost 0.01 % eye drops drp ophthalmic (eye) 06/06/20 09/25/21 Previous Rx's Medication Instructions Recorded metoprolol tartrate 25 mg tablet 25 mg PO TID 90 days #270 tabs 11/14/20 apixaban 5 mg tablet (Eliquis) 5 mg PO BID 90 days #180 tabs 02/22/21 furosemide 40 mg tablet 40 mg PO DAILY #90 tabs 02/27/21 dronedarone 400 mg tablet (Multaq) 400 mg PO BID #180 tabs 06/06/21 cefuroxime axetil 250 mg tablet 250 mg PO BID 5 days #10 tabs 09/27/21 Allergies Allergy/AdvReac Type Severity Reaction Status Date / Time ciprofloxacin [CIPROFLOXACIN] Allergy Intermediate RASH Verified 09/27/21 00:09 atorvastatin [Lipitor] Allergy Unknown unknown Verified 09/27/21 00:09 Penicillins [PENICILLINS] Allergy Unknown RASH Verified 09/27/21 00:09 shellfish derived Allergy Unknown UNKNOWN Verified 09/27/21 00:09 [SHELLFISH DERIVED] Sulfa (Sulfonamide Allergy Unknown ITCHY, ? Verified 09/27/21 00:09 Antibiotics) [SULFA (SULFONAMIDE ANTIBIOTICS)] Review of Systems Review of Systems: Pertinent positives and negatives as stated HPI 10 point review of systems is otherwise negative. PMFSH Past Medical History Source: nursing notes reviewed Surgical History History of cardioversion Family History Family History Father No problems noted. Mother No problems noted. Social History Social History Alcohol intake: never Patient Tobacco Use Status: Former Tobacco user Advance Directives: No Physical Exam ED Vital Signs: Vital Signs - 24 hr 09/30/21 02:07 09/30/21 04:28 09/30/21 06:18 Temperature 97.7 F 97.8 F 97.9 F Pulse Rate 66 58 62 Respiratory Rate 18 16 19 Blood Pressure 150/75 H 140/67 H 126/59 L Pulse Oximetry 90 L 90 L 95 Oxygen Delivery Method Room Air Room Air Nasal Cannula Oxygen Flow Rate 2 BMI result Body Mass Index 25.4 VITAL SIGNS: Reviewed. GENERAL: Well developed, well nourished, in no acute distress. HEAD: Normocephalic/atraumatic EYES: PERRLA, EOMI EARS: Ext canals without abnormality, TMs non-bulging and non-erythematous NOSE: Nares patent bilateral,No visible superficial vessel noted, no current bleeding OROPHARYNX: no oral lesions noted, posterior pharynx clear and non-erythematous without noted tonsillar enlargement/erythema/exudates NECK: Supple, no adenopathy LUNGS: Normal breath sounds, no tachypnea. No adventitious sounds or accessory muscle use. SpO2<90> on room air and this is patient's baseline CARDIOVASCULAR: Regular rate and rhythm without noted murmurs, no JVD or lower extremity edema. ABDOMEN: Soft, non-tender, non-distended with bowel sounds. SKIN: Inspection of the skin reveals no rashes NEUROLOGIC: Alert and oriented x 4. Strength and sensation to light touch were grossly intact x 4. Course Course Course Narrative: 71-year-old female with history and clinical presentation of chronic anticoagulation with recurrent episodes of epistaxis that seem isolated to primarily the right nostril. She is not currently bleeding at this time and will be provided with additional adjunct home therapies that she can utilize and then she was encouraged to have her primary care provider advocate for a earlier appointment with ENT as well as calling ENT an asking them to be put on a standby list in case there are cancellations. She is otherwise discharged home in stable condition. I reviewed all investigations and there are no acute findings to better explain patient's presentation. Medical Decision Making Lab Data Result diagrams: 09/30/21 02:59 09/30/21 02:59 Labs: Lab Results 09/30/21 09/30/21 09/30/21 Range/Units 02:59 02:59 02:59 WBC 5.2 (4.8-10.8) X10*3/uL RBC 4.73 (4.20-5.50) X10*6/uL Hgb 13.7 (12.0-16.0) g/dl Hct 43.4 (37.0-47.0) % MCV 91.8 (80.0-98.0) fL MCH 29.0 (27.0-33.0) pg MCHC 31.6 (31.0-35.0) g/dl RDW 14.0 (11.0-16.0) % Plt Count 190 (160-400) X10*3/uL MPV 9.1 L (9.4-12.3) fL Immature Gran % (Auto) 0.4 (0.0-0.4) % Neut % (Auto) 57.4 (45-73) % Lymph % (Auto) 27.8 (20-40) % [place] % (Auto) 12.4 H (2-11) % Eos % (Auto) 1.6 (0-4) % Baso % (Auto) 0.4 (0-2) % Lymph # (Auto) 1.4 (1.2-4.9) X10*3/uL [place] # (Auto) 0.6 (0.1-1.2) X10*3/uL Eos # (Auto) 0.1 (0.0-0.4) X10*3/uL Baso # (Auto) 0.0 (0.0-0.2) X10*3/uL Abs Immat Gran (auto) 0.02 (0.00-0.03) X10*3/uL Absolute Neuts (auto) 3.0 (2.0-8.3) x10*3/uL Absolute Nucleated RBC 0.000 (0.0-0.012) X10*3/uL Nucleated RBC % (auto) 0.0 (0.0-0.2) /100WBC PT 11.1 (9.9-13.0) SEC INR 1.0 (0.9-1.1) Sodium 139 (135-145) mmol/L Potassium 4.3 (3.3-5.1) mmol/L Chloride 106 (96-108) mmol/L Carbon Dioxide 26 (22-29) mmol/L Anion Gap 11 L (12-20) BUN 14 (9-16) mg/dL Creatinine 0.75 (0.5-1.4) mg/dL Estim Creat Clear Calc 67.7 Estimated GFR > 60 Random Glucose 102 (60-115) mg/dL Calcium 9.1 (8.4-10.2) mg/dL Total Bilirubin 0.9 (0.0-1.0) mg/dL AST 16 (5-31) U/L ALT 12 (0-31) U/L Alkaline Phosphatase 60 (39-117) U/L Total Protein 6.8 (6.5-8.0) g/dL Albumin 3.9 (3.5-5.0) g/dL Discharge Plan Discharge Clinical Impression: Epistaxis, Chronic anticoagulation Patient Disposition: Home, Self-Care Instructions: Nosebleed (ED) Additional Instructions: 1. Continue with the directions provided to you for the Afrin. Also, I totally agree with the use of the medicine you recently bought to moisturize the nasal mucosa. 2. Recommend bedside cool mist humidifier at night while sleeping for additional moisture. 3. Recommend 3 to 4 times a day use of saline spray. 4. Recommend that you call your primary care provider and ask them to advocate for an earlier appointment with the ENT specialist. Also, call up the ENT specialist and asked to be placed on the standby list so that if there is a c ancellation you may be able to get in earlier. Return to the ER for worsening symptoms. Prescriptions: No Action metoprolol tartrate 25 mg tablet 25 mg PO TID 90 Days Qty: 270 3RF Eliquis 5 mg tablet 5 mg PO BID 90 Days Qty: 180 3RF furosemide 40 mg tablet 40 mg PO DAILY Qty: 90 2RF Multaq 400 mg tablet 400 mg PO BID Qty: 180 3RF cefuroxime axetil 250 mg tablet 250 mg PO BID 5 Days Qty: 10 0RF Lumigan 0.01 % drops ophthalmic (eye) alprazolam 0.25 mg tablet 0.25 mg PO BID-TID Referrals: Vlad Daugherty MD [Primary Care Provider] -
--- NOTE | 2021-09-30 07:30 | PC.NURSE ---
Assumed care of pt, resting comfortably, awaiting further orders. Call chao within reach, will continue to monitor.
== END 2021-09-30 07:39 | disposition home or self-care (01) ==
PROVIDERS: Emergency Provider Student in an Organized Health Care Education/Training Program; PCP Internal Medicine
DX: R04.0 Epistaxis (principal); R51.9 Headache, unspecified; R11.2 Nausea with vomiting, unspecified; Z79.01 Long term (current) use of anticoagulants; Z79.899 Other long term (current) drug therapy; Z87.891 Personal history of nicotine dependence
CPT/HCPCS: 36415; 80053; 85025; 85610; 99283

== ENCOUNTER 2021-10-09 14:45 | Outpatient (REF) | payer MEDICARE, SELFPAY ==
[2021-10-09 18:25] LABS: Appearance Urine CLEAR; Color Urine YELLOW; Glucose Urine UA NEG (NEG); Leukocyte Esterase Urine 2+ (NEG); Nitrite Urine NEG (NEG); UACC Culture Trigger YES; Urine Blood NEG (NEG); Urine Ketones NEG (NEG); Urine Protein NEG (NEG-TRACE)
[2021-10-09 18:55] LABS: Bacteria Urine 1+ /LPF; RBC Urine 0 /HPF (0); Renal Epithelial Cells Urine 2+ /LPF; Squamous Epithelial Cell Urine 2+ /LPF
== END 2021-10-09 14:46 | disposition home or self-care (01) ==
LOC: HO.HMGCLDS 14:45
PROVIDERS: PCP Internal Medicine; Visit Provider Internal Medicine
DX: R35.0 Frequency of micturition (principal); R30.9 Painful micturition, unspecified
CPT/HCPCS: 81001; 81003; 87086

== ENCOUNTER → 2021-10-23 14:59 | Outpatient (BNVA) | payer MEDICARE, SELFPAY | PROVIDERS: PCP Internal Medicine; Visit Provider Internal Medicine Cardiovascular Disease | DX: R94.31 Abnormal electrocardiogram [ECG] [EKG] (principal); I44.0 Atrioventricular block, first degree; I51.7 Cardiomegaly | CPT/HCPCS: 93005 ==

== ENCOUNTER → 2021-10-27 11:27 | Outpatient (REF) | payer MEDICARE, SELFPAY ==
--- NOTE | 2021-10-27 11:32 | HM_ITS ---
Conclusion: 1. Patient was monitored for total period of 3 days 2. Baseline rhythm is atrial flutter with average heart of 74 beats per minute with good heart rate control. 3. No significant pauses or bradycardia noted 4. Total of 154 PVCs accounting for 0.12% of total beats account for occasional PVCs 5. Patient reported total of 8 events with no reported symptoms but all correlated with atrial flutter with controlled ventricular rate MTDD
== END ==
LOC: HO.CARD 11:27
PROVIDERS: PCP Internal Medicine; Visit Provider Internal Medicine
DX: I48.0 Paroxysmal atrial fibrillation (principal)
CPT/HCPCS: 93242

== ENCOUNTER 2021-11-15 11:58 | Inpatient (IN) | payer MEDICARE, SELFPAY ==
--- NOTE | 2021-11-15 | ECG_ITS ---
Test Reason : chest pain Blood Pressure : / mmHG Vent. Rate : 103 BPM Atrial Rate : 103 BPM P-R Int : 216 ms QRS Dur : 092 ms QT Int : 348 ms P-R-T Axes : 011 006 -17 degrees QTc Int : 455 ms Atrial tachycardia Septal infarct , age undetermined ST & T wave abnormality, consider lateral ischemia Abnormal ECG When compared with ECG of 14-AUG-2019 13:25, Vent. rate has increased BY 39 BPM Incomplete left bundle branch block is no longer Present Nonspecific T wave abnormality now evident in Inferior leads T wave inversion now evident in Lateral leads Referred By: Generic ED Physician Electronically Signed By:SETH MARTIN MD
--- NOTE | ~2021-11-15 | XR_ITS ---
EXAMINATION: XR CHEST CLINICAL INFORMATION: Atrial flutter COMPARISON: CT angiogram of July 27, 2021 and chest x-ray of August 12, 2019 TECHNIQUE: AP portable view of the chest was obtained. FINDINGS: There is some stable chronic left lower lobe and lingula disease. There is some blunting of the right costophrenic angle which may be related to small pleural effusion. The cardiopericardial silhouette is enlarged. No evidence of airspace edema. There is mild scoliosis of the thoracic spine convex right. There is degenerative joint disease involving the right shoulder. XR/XR chest 1V IMPRESSION: Chronic left lung findings. Cardiomegaly without pulmonary edema. Question small right pleural effusion.
--- NOTE | ~2021-11-15 | CT_ITS ---
EXAMINATION: CTA CHEST PE STUDY CLINICAL INFORMATION: hypoxia COMPARISON: 07/27/2021 CT scan TECHNIQUE: Prior to contrast administration, noncontrast localization images were obtained. After the administration of 65 mL of Omnipaque nonionic IV contrast, contiguous thin slice helical images were obtained through the thorax. Reformatted MIP images in the coronal and sagittal planes were obtained at the acquisition workstation. This CT examination was performed using dose optimization techniques as appropriate, variously including the following: *Automated exposure control *Adjustment of mA and/or kV according to patient size (this includes techniques or standardized protocols for targeted exams where dose is matched to indication/reason for exam; i.e. extremities or head) *Use of iterative reconstruction technique DLP: 314 mGy-cm. FINDINGS: The bolus timing on this study was acceptable for visualization of the pulmonary arterial tree. There are no intraluminal pulmonary arterial filling defects present to suggest pulmonary embolism. Minimal dependent atelectasis. Scoliotic changes and a pectus excavatum deformity of the chest wall are present. No abnormal pulmonary nodules or masses are appreciated. No significant hilar or mediastinal adenopathy. There is no evidence of pleural effusion or pneumothorax. Vascular calcification within the thoracic aorta again noted. No bulky hilar or mediastinal adenopathy. There is no pericardial effusion or pericardial thickening. Limited evaluation of the upper abdominal viscera is unremarkable. CT/CT angio chest PE protocol IMPRESSION: No evidence for pulmonary emboli. Prominent pectus excavatum deformity VTE: Negative
[2021-11-15 12:07] VITALS: BP 132/84; PULSE 101; RESP 24; O2SAT 77; BMI 25.1
--- NOTE | 2021-11-15 12:23 | ED.GENADULT ---
HPI - General Adult General Chief complaint: Arrhythmia/Palpitations Stated complaint: a-flutter Time Seen by Provider: 11/15/21 12:06 Source: patient Mode of arrival: ambulatory Limitations: no limitations History of Present Illness HPI narrative: 71 yo female with history of aflutter on Eliquis, hx cardioversion, CAD with hx NSTEMI in the past, CHF who presents to the ER from Dr. Mendez's office for evaluation of aflutter and acute heart failure exacerbation. Patient went to the appointment with her daughter and her daughter reports she has been so weak for the last month she can barely walk. She gets extremely fatigued and SOB. Patient reports for the last month she has felt unwell. She endorses orthopnea and intermittent chest pains for the last 2 weeks. The chest pains come and go, occur with exertion and rest, are nonradiating, sharp and in the middle of her chest. She has been nauseated but not vomited. No diaphoretic episodes. She coughs and is SOB when she speaks per her daughter. No sick contacts, no fevers. Patient also reports that she has been taking half dose of her Eliquis due to nose bleeds. No nosebleed since she half the dose. MD complaint: SOB Onset (ago): month(s) (1) Location: chest Radiation: non-radiation Severity: moderate Severity scale (1-10): 5 Quality: sharp Pain Consistency: intermittent Relieving factors: rest Exacerbating factors: movement Associated symptoms: chest pain, cough, loss of appetite, malaise, shortness of breath and weakness Treatments prior to arrival: none Related Data Home Medications Medication Instructions Recorded Confirmed alprazolam 0.25 mg tablet 0.25 mg PO BEDTIME 03/09/20 11/15/21 bimatoprost 0.01 % eye drops 1 drp ophthalmic (eye) BEDTIME 06/06/20 11/15/21 apixaban 5 mg tablet (Eliquis) 2.5 mg PO BID 11/15/21 11/15/21 dorzolamide 22.3 mg-timolol 6.8 1 drp ophthalmic (eye) BID 11/15/21 11/15/21 mg/mL eye drops furosemide 40 mg tablet 40 mg PO DAILY PRN SWELLING 11/15/21 11/15/21 metoprolol tartrate 25 mg tablet 50 mg PO BID 11/15/21 11/15/21 Previous Rx's Medication Instructions Recorded dronedarone 400 mg tablet (Multaq) 400 mg PO BID #180 tabs 06/06/21 Allergies Allergy/AdvReac Type Severity Reaction Status Date / Time ciprofloxacin [CIPROFLOXACIN] Allergy Intermediate RASH Verified 11/15/21 11:09 atorvastatin [Lipitor] Allergy Unknown unknown Verified 11/15/21 11:09 Penicillins [PENICILLINS] Allergy Unknown RASH Verified 11/15/21 11:09 shellfish derived Allergy Unknown UNKNOWN Verified 11/15/21 11:09 [SHELLFISH DERIVED] Sulfa (Sulfonamide Allergy Unknown ITCHY, ? Verified 11/15/21 11:09 Antibiotics) [SULFA (SULFONAMIDE ANTIBIOTICS)] Review of Systems Review of Systems: Constitutional: No Fever, No Chills ENT/Mouth: No sore throat, No Rhinorrhea, No Swallowing Difficulty Eyes: No Eye Pain, No Swelling, No Redness Cardiovascular: + Chest Pain, + SOB, + Orthopnea, +Edema Respiratory: + Cough, No Sputum, No Wheezing, +dyspnea Gastrointestinal: + Nausea, No Vomiting, No Diarrhea, No abdominal Pain, No Hematochezia, No Melena Genitourinary: No Dysuria, No Urinary Frequency, No Hematuria Musculoskeletal: No joint pain, No Myalgias Skin: No Skin Lesions, No rash Neuro: +Weakness, No Numbness, No Dizziness, No Headache Psych: + Anxiety/Panic, + Depression Heme/Lymph: No Bruising, No Lymphadenopathy Endocrine: No Polyuria, No Polydipsia PMFSH Past Medical History Medical History Atherosclerotic cardiovascular disease Marfanoid habitus Myxomatous mitral valve PAF (paroxysmal atrial fibrillation) Paroxysmal atrial flutter Surgical History History of cardioversion Family History Family History Father No problems noted. Mother No problems noted. Social History Social History Alcohol intake: never Patient Tobacco Use Status: Former Tobacco user Use of substances other than those prescribed or required for medical reasons: No Advance Directives: No Physical Exam ED Vital Signs: Vital Signs - 24 hr 11/15/21 12:07 11/15/21 12:40 11/15/21 13:57 Pulse Rate 101 H 92 97 Respiratory Rate 24 H 22 H 20 Blood Pressure 132/84 124/76 115/64 Pulse Oximetry 77 L 95 98 Oxygen Delivery Method Room Air Nasal Cannula Nasal Cannula Oxygen Flow Rate 3 3 11/15/21 14:58 Pulse Rate 95 Respiratory Rate Blood Pressure 103/59 L Pulse Oximetry 98 Oxygen Delivery Method Room Air Oxygen Flow Rate BMI result Body Mass Index 25.1 Appearance: Alert. Oriented X3. Moderate respiratory distress Eyes: Pupils equal, round and reactive to light. ENT: Pharynx normal. Neck: Normal inspection. Neck supple. CVS: Tachycardic, heart rate low 1 100s, irregularly irregular Pulses normal. Respiratory: Moderate respiratory distress with accessory muscle use. Breath sounds with diffuse rales throughout, rhonchi in the right upper lobe Abdomen: Soft and nontender. +BS x4 Skin: Skin warm and dry. Normal skin color. Normal skin turgor. No rashes. Extremities: 2+ lower extremity edema. No calf tenderness Neuro: Oriented X 3. No motor deficit. No sensory deficit. Course Course Course Narrative: 71-year-old female with a history of paroxysmal a flutter on Eliquis, CHF who presents to the ER from manufacturing engineer chief's office today with rapid AFib and hypoxia. On arrival to the ER patient's heart rates are 115-120, she is hypoxic to 77% on room air with increased work of breathing. She was placed on 15 L via non-rebreather, all appropriate staff bedside, IV established. Patient is in acute heart failure exacerbation and will require IV diuresis. May need noninvasive ventilation, respiratory called to the bedside. Labs, x-ray, EKG all ordered. No chest pain at this time. Anticipate admission Reevaluation(s) Reevaluation #1: Dr. Mendez recommending 40 mg IV Lasix. He is recommending probable transesophageal echocardiogram and cardioversion. Will plan to use a Purewick for accurate I's and O's. This has worked well for her in the past when admitted for heart attack a few years ago. She has since been weaned to 3 L nasal cannula and is saturating 98%. No need for noninvasive ventilation. Her chest x-ray showing cardiomegaly without pulmonary edema. Possible small right pleural effusion. Her BNP is 454. Rest of her chemistry is pending. Delayed due to analyzer being down in the lab. Reevaluation #2: Labs showing mild hyperkalemia, K 5.4. She was given Lasix. Hold off on any further treatment for now. She is diuresing. Will plan for admission. Consultations Consultation #1: Cardiology Dr. Mendez Medical Decision Making Lab Data Result diagrams: 11/15/21 12:23 11/15/21 12:23 Labs: Lab Results 11/15/21 11/15/21 11/15/21 Range/Units 12:23 12:23 12:23 WBC 5.1 (4.8-10.8) X10*3/uL RBC 4.94 (4.20-5.50) X10*6/uL Hgb 14.2 (12.0-16.0) g/dl Hct 45.2 (37.0-47.0) % MCV 91.5 (80.0-98.0) fL MCH 28.7 (27.0-33.0) pg MCHC 31.4 (31.0-35.0) g/dl RDW 14.2 (11.0-16.0) % Plt Count 242 D (160-400) X10*3/uL MPV 9.2 L (9.4-12.3) fL Immature Gran % (Auto) 0.2 (0.0-0.4) % Neut % (Auto) 58.6 (45-73) % Lymph % (Auto) 27.1 (20-40) % [place] % (Auto) 12.3 H (2-11) % Eos % (Auto) 1.4 (0-4) % Baso % (Auto) 0.4 (0-2) % Lymph # (Auto) 1.4 (1.2-4.9) X10*3/uL [place] # (Auto) 0.6 (0.1-1.2) X10*3/uL Eos # (Auto) 0.1 (0.0-0.4) X10*3/uL Baso # (Auto) 0.0 (0.0-0.2) X10*3/uL Abs Immat Gran (auto) 0.01 (0.00-0.03) X10*3/uL Absolute Neuts (auto) 3.0 (2.0-8.3) x10*3/uL Absolute Nucleated RBC 0.000 (0.0-0.012) X10*3/uL Nucleated RBC % (auto) 0.0 (0.0-0.2) /100WBC PT 12.3 (10.0-13.1) SEC INR 1.1 (0.9-1.1) APTT 27.6 (26.0-36.4) SEC Sodium 140 (135-145) mmol/L Potassium 5.4 H D (3.3-5.1) mmol/L Chloride 104 (96-108) mmol/L Carbon Dioxide 24 (22-29) mmol/L Anion Gap 17 (12-20) BUN 14 (9-16) mg/dL Creatinine 0.80 (0.5-1.4) mg/dL Estim Creat Clear Calc 58.6 Estimated GFR > 60 Random Glucose 93 (60-115) mg/dL Calcium 8.2 L D (8.4-10.2) mg/dL Magnesium 2.2 (1.6-2.6) mg/dL Total Bilirubin 1.2 H (0.0-1.0) mg/dL Direct Bilirubin 0.3 (0.0-0.5) mg/dL AST 24 D (5-31) U/L ALT 11 (0-31) U/L Alkaline Phosphatase 55 (39-117) U/L Troponin I High Sens (<3.5-17.0) ng/L B-Natriuretic Peptide (<100) pg/mL Total Protein 7.1 (6.5-8.0) g/dL Albumin 3.7 (3.5-5.0) g/dL COVID-19 (SUZY) (Negative) COVID-19 Clin Com 11/15/21 11/15/21 Range/Units 12:23 12:23 WBC (4.8-10.8) X10*3/uL RBC (4.20-5.50) X10*6/uL Hgb (12.0-16.0) g/dl Hct (37.0-47.0) % MCV (80.0-98.0) fL MCH (27.0-33.0) pg MCHC (31.0-35.0) g/dl RDW (11.0-16.0) % Plt Count (160-400) X10*3/uL MPV (9.4-12.3) fL Immature Gran % (Auto) (0.0-0.4) % Neut % (Auto) (45-73) % Lymph % (Auto) (20-40) % [place] % (Auto) (2-11) % Eos % (Auto) (0-4) % Baso % (Auto) (0-2) % Lymph # (Auto) (1.2-4.9) X10*3/uL [place] # (Auto) (0.1-1.2) X10*3/uL Eos # (Auto) (0.0-0.4) X10*3/uL Baso # (Auto) (0.0-0.2) X10*3/uL Abs Immat Gran (auto) (0.00-0.03) X10*3/uL Absolute Neuts (auto) (2.0-8.3) x10*3/uL Absolute Nucleated RBC (0.0-0.012) X10*3/uL Nucleated RBC % (auto) (0.0-0.2) /100WBC PT (10.0-13.1) SEC INR (0.9-1.1) APTT (26.0-36.4) SEC Sodium (135-145) mmol/L Potassium (3.3-5.1) mmol/L Chloride (96-108) mmol/L Carbon Dioxide (22-29) mmol/L Anion Gap (12-20) BUN (9-16) mg/dL Creatinine (0.5-1.4) mg/dL Estim Creat Clear Calc Estimated GFR Random Glucose (60-115) mg/dL Calcium (8.4-10.2) mg/dL Magnesium (1.6-2.6) mg/dL Total Bilirubin (0.0-1.0) mg/dL Direct Bilirubin (0.0-0.5) mg/dL AST (5-31) U/L ALT (0-31) U/L Alkaline Phosphatase (39-117) U/L Troponin I High Sens 4.2 (<3.5-17.0) ng/L B-Natriuretic Peptide 454 H (<100) pg/mL Total Protein (6.5-8.0) g/dL Albumin (3.5-5.0) g/dL COVID-19 (SUZY) Negative (Negative) COVID-19 Clin Com See Note ECG Data Attestation: I personally reviewed and interpreted this ECG as follows: Prior ECG tracings: available for review Interpretation: Atrial fibrillation versus atrial flutter, heart rate 103 beats per minute, ST depression in V6, Q waves in V1, V2 Critical Care Time Critical Care Time Critical Care Time: Yes Total Critical Care Time: 44 Attestation: I have personally provided critical care time exclusive of time spent on separately billable procedures. Time includes review of lab data, radiology results, discussion with consultants, and monitoring for potential decompensation. Intervention performed as documented. Discharge Plan Discharge Clinical Impression: Acute heart failure, Acute respiratory failure with hypoxia Patient Disposition: Admitted As Inpatient
[2021-11-15] MEDS: Furosemide 40 MG/4 ML VIAL IVPUSH (12:27)
[2021-11-15 12:28] LABS: MANUAL DIFF FLAG NO
[2021-11-15 12:30] LABS: Basophils Percent Auto 0.4 % (0-2); Eosinophils Absolute Auto 0.1 X10*3/uL (0.0-0.4); Eosinophils Percent Auto 1.4 % (0-4); Hematocrit 45.2 % (37.0-47.0); Hemoglobin 14.2 g/dl (12.0-16.0); Imm Gran Abs Auto 0.01 X10*3/uL (0.00-0.03); Imm Gran Pct Auto 0.2 % (0.0-0.4); Lymphocytes Absolute Auto 1.4 X10*3/uL (1.2-4.9); Lymphocytes Percent Auto 27.1 % (20-40); Mean Corpuscular HGB Conc 31.4 g/dl (31.0-35.0); Mean Corpuscular Hemoglobin 28.7 pg (27.0-33.0); Mean Corpuscular Volume 91.5 fL (80.0-98.0); Mean Platelet Volume 9.2 fL (9.4-12.3); Monocytes Absolute Auto 0.6 X10*3/uL (0.1-1.2); Monocytes Percent Auto 12.3 % (2-11); Neutrophils Percent Auto 58.6 % (45-73); Platelet Count 242 X10*3/uL (160-400); Red Blood Count 4.94 X10*6/uL (4.20-5.50); Red Cell Distribution Width 14.2 % (11.0-16.0); White Blood Count 5.1 X10*3/uL (4.8-10.8)
[2021-11-15 12:36] LABS: INTERNATIONAL NORM RATIO 1.1 (0.9-1.1); Prothrombin Time 12.3 SEC (10.0-13.1)
[2021-11-15 12:39] LABS: Partial Thromboplastin Time 27.6 SEC (26.0-36.4)
[2021-11-15 12:40] VITALS: BP 124/76; PULSE 92; RESP 22; O2SAT 95
[2021-11-15 12:44] LABS: COVID-19 Test Negative (Negative)
--- NOTE | 2021-11-15 12:54 | PC.NURSE ---
Pt alert and oriented, wheeled in from Cardiology appt accompanied by daughter. Pt reported cardiology noted Atrial flutter. Pt sating 77% room air, using accessory muscles, placed on oxygen, sats increased to 95%. Monitor showing Afib. Pt denies any chest pain but c/o 1/10 headache. Swelling noted to bilateral lower extremities. Lung sounds diminished.
[2021-11-15 13:02] LABS: B Type Natriuretic Peptide 454 pg/mL (<100); Troponin-I High Sensitivity 4.2 ng/L (<3.5-17.0)
--- NOTE | 2021-11-15 13:28 | PC.NURSE ---
pt voided 700ml of yellow urine at this time after the lasix
--- NOTE | 2021-11-15 13:51 | PHA.MEDREC ---
Pharmacy Consult ? Medication Reconciliation Pharmacy has completed the medication reconciliation. Spoke with patient in the ED. Patient states apixaban dosing changed from 5 mg bid to 2.5 mg bid, and metoprolol dosing changed for 3 tablets/day to 2 tabs bid. Pt only takes alprazolam 0.25 mg at bedtime. Pt only took metoprolol today.
[2021-11-15 13:57] VITALS: BP 115/64; PULSE 97; RESP 20; O2SAT 98
[2021-11-15 14:38] LABS: Alanine Aminotransferase 11 U/L (0-31); Albumin Level 3.7 g/dL (3.5-5.0); Alkaline Phosphatase 55 U/L (39-117); Anion Gap 17 (12-20); Aspartate Amino Transferase 24 U/L (5-31); Bilirubin Direct 0.3 mg/dL (0.0-0.5); Bilirubin Total 1.2 mg/dL (0.0-1.0); Blood Urea Nitrogen 14 mg/dL (9-16); Calcium 8.2 mg/dL (8.4-10.2); Carbon Dioxide 24 mmol/L (22-29); Chloride 104 mmol/L (96-108); Creatinine Clr Calc Pharmacy 58.6; Estimated Glomerular Filt Rate > 60; Glucose Random 93 mg/dL (60-115); Magnesium 2.2 mg/dL (1.6-2.6); Potassium 5.4 mmol/L (3.3-5.1); Sodium 140 mmol/L (135-145); Total Protein 7.1 g/dL (6.5-8.0)
[2021-11-15 14:58] VITALS: BP 103/59; PULSE 95; O2SAT 98
[2021-11-15 15:37] VITALS: BP 118/60; PULSE 93; RESP 18; O2SAT 97
[2021-11-15] MEDS: 0.9 % Sodium Chloride Flush 3 ML SYRINGE IVFLUSH (17:40)
--- NOTE | 2021-11-15 20:25 | MHC.CM.PN ---
Addendum entered by Kait Arceo 11/15/21 20:45: Contact is patient's daughter, Sarah Vidal ([phone]). Original Note: IMM 11/15. Met with admitted patient with bed assignment pending. A&Ox4. Pt son live with her in her home. No DME/services. HCP education provided, Pt reluctant. Explained that CM can complete at any time during her hospitalization if she desires. Pt is very independent. Drives. Moderna x2, no booster. D/C plan is home without services. Family will provide transportation at discharge. CM to follow for d/c needs.
[2021-11-15] MEDS: ALPRAZolam 0.25 MG TABLET PO (21:33)
[2021-11-15] MEDS: Apixaban 5 MG TABLET PO (21:33)
[2021-11-15] MEDS: Metoprolol Tartrate 50 MG TABLET PO (21:33)
--- NOTE | 2021-11-15 21:36 | PC.NURSE ---
pt a&ox3, vss, medicated per provider order, pt declined docusate. linens changed, urine sample obtained, suction canister changed for purewik.
[2021-11-15 21:49] LABS: Appearance Urine CLEAR; Color Urine YELLOW; Glucose Urine UA NEG (NEG); Leukocyte Esterase Urine NEG (NEG); Nitrite Urine NEG (NEG); Urine Blood NEG (NEG); Urine Ketones NEG (NEG); Urine Protein NEG (NEG-TRACE)
[2021-11-16] VITALS (7 sets, daily range): BP systolic 95–112; BP diastolic 51–73; PULSE 78–100; RESP 17–20; TEMP 36.1–37.3; O2SAT 93–98; BMI 24.5
[2021-11-16 06:38] LABS: Anion Gap 11 (12-20); Blood Urea Nitrogen 11 mg/dL (9-16); Calcium 8.5 mg/dL (8.4-10.2); Carbon Dioxide 36 mmol/L (22-29); Chloride 100 mmol/L (96-108); Estimated Glomerular Filt Rate > 60; Glucose Random 90 mg/dL (60-115); Potassium 4.3 mmol/L (3.3-5.1); Sodium 143 mmol/L (135-145)
[2021-11-16 06:46] LABS: B Type Natriuretic Peptide 335 pg/mL (<100)
--- NOTE | 2021-11-16 07:58 | P.HPHOSP_ITS ---
History of Present Illness Date of Service: 11/15/21 Attending physician on admission: [facility] Chief Complaint: aflutter/chf 71 year old woman with medical history significant for cad with history of nstemi, paroxysmal atrial fibrillation and flutter, marfanoid habitus, myxonatous mitral valve, and anxiety presented to the hospital for evaluation of one month of worsening BERGER, fatigue, and palpitations. She states that the fatigue and weakness has been so significant that she has difficulty with walking and becomes extremely short of breath on exertion. She endorses orthopn ea and has been sleeping upright in a chair. There have also been short periods of epigastric and retrosternal nonradiating chest pain with some associated nausea but no vomiting. Symptoms had been exertional but now also occur at rest. There has also been increased and bilateral leg swelling. Denies any diaphoretic episodes. She does become short of breath with speech and occasionally coughs. She is a patient of Dr. Mendez cardiology and seen earlier prior to presentation to the ED for evaluation of atrial flutter and acute heart failure exacerbation. About 3 weeks ago had a Holter monitor placed for 3 days which showed atrial flutter. He has had history of cardioversion with brief success but atrial fibrillation/flutter recurred. Patient is now maintained on Multaq for rhythm as well as metoprolol which was recently increased to 50 mg twice daily for rate control. On lasix 40mg daily for diuresis but states she sometimes takes every other day due to polyuria. She is anticoagulated with Eliquis. However she tells me that her Eliquis was reduced to a dose of 2.5 mg twice daily by PCP as she was experiencing recurring epistaxis with duration of 40-60 minutes each episode requiring multiple ER visits. She states the nosebleeds have stopped since dose is reduced. She does have upcoming appointment with ENT. On arrival to the ER patient was found to be hypoxic with oxygen saturation 77% and in respiratory distress. Has been maintaining oxygen saturation >93% after being placed on 3 L supplemental oxygen via nasal cannula. She denies any ongoing shortness of breath. BNP mildly elevated at 454. EKG earlier with Dr. Huffman did reveal atrial flutter. EKG in the ED shows sinus tachycardia with rate of 103, age-indeterminate septal infarct and nonspecific ST/T-wave abnormality. There is also new T-wave inversion evident in lateral leads. Troponin 4.2. Chest x-ray significant for cardiomegaly without pulmonary edema and question small right pleural effusion as well as chronic findings in the left lung. Last echocardiogram in 10/04 with normal systolic and diastolic function with EF 60-65%. Review of Systems Review of Systems: Yes all other systems are reviewed and are negative REPLACED BY [facility] Medical History Anxiety Atherosclerotic cardiovascular disease History of non-ST elevation myocardial infarction (NSTEMI) Marfanoid habitus Myxomatous mitral valve PAF (paroxysmal atrial fibrillation) Paroxysmal atrial flutter Family History Father No problems noted. Mother No problems noted. Surgical History History of cardioversion Social History Household Members: Family Household Members Other:: son Housing: House Do you presently have visiting nurse or other home services: No Alcohol intake: never Patient Tobacco Use Status: Former Tobacco user service: No Current occupational status: retired [employer] Allergies Allergy/AdvReac Type Severity Reaction Status Date / Time ciprofloxacin [CIPROFLOXACIN] Allergy Intermediate RASH Verified 11/15/21 11:09 atorvastatin [Lipitor] Allergy Unknown unknown Verified 11/15/21 11:09 Penicillins [PENICILLINS] Allergy Unknown RASH Verified 11/15/21 11:09 shellfish derived Allergy Unknown UNKNOWN Verified 11/15/21 11:09 [SHELLFISH DERIVED] Sulfa (Sulfonamide Allergy Unknown ITCHY, ? Verified 11/15/21 11:09 Antibiotics) [SULFA (SULFONAMIDE ANTIBIOTICS)] Active Medications: Current Medications Alprazolam (Alprazolam 0.25 Mg Tablet) 0.25 mg PO BEDTIME [facility] Last Admin: 11/15/21 21:33 Dose: 0.25 mg Apixaban (Apixaban 5 Mg Tablet) 5 mg PO BID [facility] Last Admin: 11/15/21 21:33 Dose: 5 mg Docusate Sodium (Docusate Sodium 100 Mg Capsule) 100 mg PO BID [facility] Last Admin: 11/15/21 21:33 Dose: Not Given Dorzolamide/Timolol (Dorzolamide/Timolo 2.23%/0.68% 10 Ml Drbtl) 1 drop EYE- BOTH BID [facility] Last Admin: 11/15/21 21:33 Dose: Not Given Furosemide (Furosemide 40 Mg/4 Ml Vial) 40 mg IVPUSH DAILY [facility]; Protocol Metoprolol Tartrate (Metoprolol Tartrate 50 Mg Tablet) 50 mg PO BID [facility]; Protocol Last Admin: 11/15/21 21:33 Dose: 50 mg Non-Formulary Medication (Bimatoprost) 1 drop EYE-BOTH BEDTIME [facility] Pharmacy Consult (Consult Rx Perform Med Rec) 1 each MISCELLANE ONCE PRN PRN Reason: Consult order Sodium Chloride (0.9 % Sodium Chloride Flush 3 Ml Syringe) 3 ml IVFLUSH QSHIFT [facility] Last Admin: 11/16/21 01:23 Dose: Not Given Home Medications Medication Instructions Recorded Confirmed Last Taken Type alprazolam 0.25 mg tablet 0.25 mg PO BEDTIME 03/09/20 11/15/21 11/14/21 History bimatoprost 0.01 % eye drops 1 drp ophthalmic (eye) BEDTIME 06/06/20 11/15/21 11/14/21 History apixaban 5 mg tablet (Eliquis) 2.5 mg PO BID 11/15/21 11/15/21 11/14/21 History dorzolamide 22.3 mg-timolol 6.8 1 drp ophthalmic (eye) BID 11/15/21 11/15/21 11/14/21 History mg/mL eye drops furosemide 40 mg tablet 40 mg PO DAILY PRN SWELLING 11/15/21 11/15/21 Unknown History metoprolol tartrate 25 mg tablet 50 mg PO BID 11/15/21 11/15/21 11/15/21 History Physical Exam Vital Signs and Narrative: Vital Signs: Last Vital Signs Temp 97.0 F 11/16/21 07:35 Pulse 86 11/16/21 07:35 Resp 20 11/16/21 07:35 BP 100/58 L 11/16/21 07:35 Pulse Ox 94 11/16/21 07:35 O2 Del Method 11/16/21 07:35 O2 Flow Rate 3 11/16/21 07:35 BMI result Body Mass Index 24.5 Constitutional - Awake and Alert, No apparent distress Eyes - PERRLA, EOMI Cardiovascular - S1S2, RRR, No edema Respiratory - Normal lung expansion, Normal respiratory effort, No respiratory distress, diffuse crackles bilaterally Gastrointestinal - NT / ND; +BS; No rebound or guarding - No CVA tenderness Extremities - no calf tenderness bilaterally, 1+ pitting edema b/l, L>R Musculoskeletal - Normal inspection, normal ROM Skin - Warm/Dry Neurological - Alert & oriented x3, No focal deficit Psychological - Appropriate affect Results Labs CBC and Chem 7: 11/15/21 12:23 11/17/21 05:57 Labs: Laboratory Results - last 24 hr 11/15/21 11/15/21 11/15/21 12:23 12:23 12:23 MCV 91.5 MCH 28.7 MCHC 31.4 RDW 14.2 Plt Count 242 D MPV 9.2 L Immature Gran % (Auto) 0.2 Neut % (Auto) 58.6 Lymph % (Auto) 27.1 [place] % (Auto) 12.3 H Eos % (Auto) 1.4 Baso % (Auto) 0.4 Lymph # (Auto) 1.4 [place] # (Auto) 0.6 Eos # (Auto) 0.1 Baso # (Auto) 0.0 Abs Immat Gran (auto) 0.01 Absolute Neuts (auto) 3.0 Absolute Nucleated RBC 0.000 Nucleated RBC % (auto) 0.0 PT 12.3 INR 1.1 APTT 27.6 Anion Gap 17 Estim Creat Clear Calc 58.6 Estimated GFR > 60 Random Glucose 93 Calcium 8.2 L D Magnesium 2.2 Total Bilirubin 1.2 H Direct Bilirubin 0.3 AST 24 D ALT 11 Alkaline Phosphatase 55 B-Natriuretic Peptide Total Protein 7.1 Albumin 3.7 Urine Color Urine Appearance Urine pH Ur Specific [place] Urine Protein Urine Glucose (UA) Urine Ketones Urine Blood Urine Nitrite Ur Leukocyte Esterase COVID-19 (SUZY) COVID-19 Clin Com 11/15/21 11/15/21 11/15/21 12:23 12:23 21:38 MCV MCH MCHC RDW Plt Count MPV Immature Gran % (Auto) Neut % (Auto) Lymph % (Auto) [place] % (Auto) Eos % (Auto) Baso % (Auto) Lymph # (Auto) [place] # (Auto) Eos # (Auto) Baso # (Auto) Abs Immat Gran (auto) Absolute Neuts (auto) Absolute Nucleated RBC Nucleated RBC % (auto) PT INR APTT Anion Gap Estim Creat Clear Calc Estimated GFR Random Glucose Calcium Magnesium Total Bilirubin Direct Bilirubin AST ALT Alkaline Phosphatase B-Natriuretic Peptide 454 H Total Protein Albumin Urine Color YELLOW Urine Appearance CLEAR Urine pH 6.0 Ur Specific [place] 1.010 Urine Protein NEG Urine Glucose (UA) NEG Urine Ketones NEG Urine Blood NEG Urine Nitrite NEG Ur Leukocyte Esterase NEG COVID-19 (SUZY) Negative COVID-19 Clin Com See Note 11/16/21 11/16/21 06:04 06:04 MCV MCH MCHC RDW Plt Count MPV Immature Gran % (Auto) Neut % (Auto) Lymph % (Auto) [place] % (Auto) Eos % (Auto) Baso % (Auto) Lymph # (Auto) [place] # (Auto) Eos # (Auto) Baso # (Auto) Abs Immat Gran (auto) Absolute Neuts (auto) Absolute Nucleated RBC Nucleated RBC % (auto) PT INR APTT Anion Gap 11 L Estim Creat Clear Calc 67.0 Estimated GFR > 60 Random Glucose 90 Calcium 8.5 Magnesium Total Bilirubin Direct Bilirubin AST ALT Alkaline Phosphatase B-Natriuretic Peptide 335 H Total Protein Albumin Urine Color Urine Appearance Urine pH Ur Specific [place] Urine Protein Urine Glucose (UA) Urine Ketones Urine Blood Urine Nitrite Ur Leukocyte Esterase COVID-19 (SUZY) COVID-19 Clin Com ECG Attestation: I personally reviewed and interpreted this ECG as follows: ECG interpretation date: 11/15/21 Prior ECG tracings: available for review Interpretation: Sinus tachycardia, rate 103. Nonspecific ST-T wave abnormalities. Imaging Radiologist's Impressions: Impressions Chest X-Ray 11/15/21 12:53 IMPRESSION: Chronic left lung findings. Cardiomegaly without pulmonary edema. Question small right pleural effusion. Assessment and Plan (1) Acute respiratory failure with hypoxia: Status: Acute (2) Acute heart failure: Qualifiers: Heart failure type: diastolic Qualified Code(s): I50.31 - Acute diastolic (congestive) heart failure Status: Acute (3) Atherosclerotic cardiovascular disease: Status: Acute (4) PAF (paroxysmal atrial fibrillation): Status: Acute (5) Paroxysmal atrial flutter: Status: Acute Plan 71 year old woman with medical history significant for cad with history of nstemi, paroxysmal atrial fibrillation and flutter, marfanoid habitus, myxonatous mitral valve, and anxiety presented to the hospital for evaluation of one month of worsening BERGER, fatigue, and palpitations consistent with acute exacerbation of CHF with uncontrolled recurrent atrial flutter. Seen by cardiology and planning for MURALI and cardioversion if patient continues to tolerate increased dose of eliquis. She is more comfortable after being placed on 3L supplemental oxygen and denies any current shortness of breath or chest pain. 1-acute on chronic congestive heart failure with preserved ejection fraction- improving -acute exacerbation secondary to uncontrolled atrial flutter -admit to telemetry for further cardiac monitoring -diffuse crackles on exam with right-sided pleural effusion on chest x-ray as well as increase pitting edema in the lower extremities bilaterally. Initiate Lasix 40 mg IV once daily -strict I&O and daily weights -low-sodium cardiac diet -cardiology consulted 2-acute respiratory failure with hypoxia secondary to above -patient hypoxic with oxygen saturation 77% improved to >93% on 3 L supplemental oxygen nasal cannula. Change to 3 L humidified oxygen via nasal cannula to maintain oxygen saturation and prevent epistaxis with increased eliquis dose. 3-paroxysmal atrial fibrillation/atrial flutter -recent 3 day Holter monitor revealed atrial flutter. EKG in the morning of admission and Cardiology reviewed showing atrial flutter. EKG in the ER shows sinus tachycardia. compliance monitor during admission interview mentors regular rhythm -Not adequately anticoagulated. Increase Eliquis to 5 mg twice daily -Multaq not effectively controlling arrhythmia. Hold. Patient to undergo MURALI and cardioversion by Cardiology during admission. Cardiology consult placed -continue metoprolol 50 mg twice daily. Rate controlled 4-CAD -history NSTEMI around 2017 -has been intolerant to statins -EKG in ED per Cardiology shows nonspecific ST/T-wave abnormality was new T-wave inversion in lateral leads. Negative troponin of 4.2 -no active chest pain 5- Anxiety -Continue home alprazolam 0.25 at bedtime DVT prophylaxis-patient will continue on Eliquis Code status discussed with patient. Patient wishes to remain full code at this time. She will discuss further with her family Patient requires inpatient stay for at least two midnights for IV diuretic therapy for acute CHF exacerbation after failing oral diuretics at home. She will also require MURALI and cardioversion with further monitoring by Cardiology. Quality Stroke Does the patient have a stroke diagnosis?: No VTE Prior VTE?: No VTE Risk Level:: Medical - moderate - high VTE Device Contraindication: Treatment Not Indicated VTE Drug Contraindication: N/A - Med Ordered
--- NOTE | 2021-11-16 10:19 | PM.CNCAR ---
History of Present Illness History of Present Illness Date of Service: 11/16/21 Requesting physician: Ghazala Hurst Consult reason: congestive heart failure Chief complaint: Atrial Flutter/CHF Narrative: I was consulted to see [place] in cardiology consultation today. Patient saw Dr. Mendez yesterday in the office and was having symptoms of heart failure was referred to the emergency room. In the emergency room she was noted to be in heart failure with elevated BNP in the 400 range and EKG probably suggestive atrial tachycardia/ a flutter. She says for about a month she has been having increasing symptoms of shortness of breath and also having trouble lying down with chest pressure. She also notices low oxygen level. Came to the hospital yesterday. Prior to that she has been having recurrent significant epistaxis which has not been controlled. She was advised to reduce her Eliquis dose to 2.5 mg b.i.d. and since for about 2 weeks she has not had any recurrent epistaxis most likely due to inadequate anticoagulation. She has an appointment with ENT in December evaluate for recurrent epistaxis. She has done all the interval non interventional measures to try to reduce epistaxis episodes. She has no prior history of congestive heart failure. She has prior history of atrial fibrillation and for couple years since cardioversion has been maintained on Multaq and has done well with rhythm control approach. She also had tolerated Eliquis until more recently. 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 Her son and a grandson both have been diagnosed with Marfan syndrome had ascending aortic surgery along with valve replacement for her son. She has no history of stroke or diabetes or hypertension. Echocardiogram in September at show normal LV systolic function with mitral valve prolapse and mild mitral regurgitation. Review of Systems Constitutional: Constitutional: Reports no additional constitutional complaints Eyes: Eyes: Reports no additional eye complaints Cardiovascular: Cardiovascular: Reports chest pain at rest, Denies rapid heart rate, Reports leg edema, Denies lightheadedness, Denies Loss of Consciousness, Denies palpitations, Reports dyspnea on exertion and Reports orthopnea Respiratory: Respiratory: Reports no additional respiratory complaints and Reports dyspnea on exertion Gastrointestinal: Gastrointestinal: Reports no additional gastrointestinal complaints Genitourinary: Genitourinary: Reports no additional female genitourinary complaints Musculoskeletal: Musculoskeletal: Reports no additional musculoskeletal complaints Integumentary/Breasts: Skin/Breast: Reports system reviewed and no additional complaints, except as docu Neurologic: Reports system reviewed and no additional complaints, except as documented Psychiatric: Psychiatric: Reports no additional psychiatric complaints Endocrine: Endocrine: Reports no additional endocrine complaints and Denies palpitations Hematologic/Lymphatic: Hematologic/Lymphatic: Reports no additional hematologic/lymphatic complaints Allergic/Immunologic: Allergic/Immunologic: Reports no additional allergic/immunologic complaints PMFSH Past Medical History Medical History Anxiety Atherosclerotic cardiovascular disease History of non-ST elevation myocardial infarction (NSTEMI) Marfanoid habitus Myxomatous mitral valve PAF (paroxysmal atrial fibrillation) Paroxysmal atrial flutter Family History Family History Father No problems noted. Mother No problems noted. Surgical History Surgical History History of cardioversion Social History Social History Household Members: Family Household Members Other:: son Housing: House Do you presently have visiting nurse or other home services: No Alcohol intake: never Patient Tobacco Use Status: Former Tobacco user Use of substances other than those prescribed or required for medical reasons: No Have you been hit, kicked, punched, or otherwise hurt by someone within the past year? If so, by whom?: No Do you feel safe in your current relationship?: No Current Relationship Is there a partner from a previous relationship who is making you feel unsafe now?: No Are you made to feel afraid or neglected: No Advance Directives: No Do you have thoughts of harming others: None Do you have a plan to hurt others: No Plan Recently lost weight without trying: No Nutrition Risks: No Nutritional Risk Patient : No service: No Current occupational status: retired Meds Allergies Allergy/AdvReac Type Severity Reaction Status Date / Time ciprofloxacin [CIPROFLOXACIN] Allergy Intermediate RASH Verified 11/15/21 11:09 atorvastatin [Lipitor] Allergy Unknown unknown Verified 11/15/21 11:09 Penicillins [PENICILLINS] Allergy Unknown RASH Verified 11/15/21 11:09 shellfish derived Allergy Unknown UNKNOWN Verified 11/15/21 11:09 [SHELLFISH DERIVED] Sulfa (Sulfonamide Allergy Unknown ITCHY, ? Verified 11/15/21 11:09 Antibiotics) [SULFA (SULFONAMIDE ANTIBIOTICS)] Active Medications: Current Medications Alprazolam (Alprazolam 0.25 Mg Tablet) 0.25 mg PO BEDTIME [facility] Last Admin: 11/15/21 21:33 Dose: 0.25 mg Apixaban (Apixaban 5 Mg Tablet) 5 mg PO BID [facility] Last Admin: 11/15/21 21:33 Dose: 5 mg Docusate Sodium (Docusate Sodium 100 Mg Capsule) 100 mg PO BID [facility] Last Admin: 11/15/21 21:33 Dose: Not Given Dorzolamide/Timolol (Dorzolamide/Timolo 2.23%/0.68% 10 Ml Drbtl) 1 drop EYE-BOTH BID [facility] Last Admin: 11/15/21 21:33 Dose: Not Given Empagliflozin (Empagliflozin 10 Mg Tablet) 10 mg PO DAILY [facility] Furosemide (Furosemide 40 Mg/4 Ml Vial) 40 mg IVPUSH DAILY [facility]; Protocol Metoprolol Tartrate (Metoprolol Tartrate 50 Mg Tablet) 50 mg PO BID [facility]; Protocol Last Admin: 11/15/21 21:33 Dose: 50 mg Non-Formulary Medication (Bimatoprost) 1 drop EYE-BOTH BEDTIME [facility] Pharmacy Consult (Consult Rx Perform Med Rec) 1 each MISCELLANE ONCE PRN PRN Reason: Consult order Sodium Chloride (0.9 % Sodium Chloride Flush 3 Ml Syringe) 3 ml IVFLUSH QSHIFT [facility] Last Admin: 11/16/21 01:23 Dose: Not Given Spironolactone (Spironolactone 25 Mg Tablet) 12.5 mg PO DAILY [facility]; Protocol Home Medications Medication Instructions Recorded Confirmed Last Taken Type alprazolam 0.25 mg tablet 0.25 mg PO BEDTIME 03/09/20 11/15/21 11/14/21 History bimatoprost 0.01 % eye drops 1 drp ophthalmic (eye) BEDTIME 06/06/20 11/15/21 11/14/21 History apixaban 5 mg tablet (Eliquis) 2.5 mg PO BID 11/15/21 11/15/21 11/14/21 History dorzolamide 22.3 mg-timolol 6.8 1 drp ophthalmic (eye) BID 11/15/21 11/15/21 11/14/21 History mg/mL eye drops furosemide 40 mg tablet 40 mg PO DAILY PRN SWELLING 11/15/21 11/15/21 Unknown History metoprolol tartrate 25 mg tablet 50 mg PO BID 11/15/21 11/15/21 11/15/21 History Physical Exam Vital Signs: Vital Signs: Last Vital Signs Temp 97.0 F 11/16/21 07:35 Pulse 86 11/16/21 07:35 Resp 20 11/16/21 07:35 BP 100/58 L 11/16/21 07:35 Pulse Ox 94 11/16/21 07:35 O2 Del Method 11/16/21 07:35 O2 Flow Rate 3 11/16/21 07:35 BMI result Body Mass Index 24.5 Const: General: cooperative, comfortable, in distress mild and respiratory and anxious Nutritional Appearance: thin Orientation/consciousness: patient oriented x3 Limitations: no limitations HEENT: Head: Yes normocephalic and Yes atraumatic Neck: Neck: Yes trachea midline, Yes supple and Yes JVD Chest: Chest palpation & inspection: abnormal inspection of the chest funnel chest (pectus excavatum) Resp: Effort & Inspection: normal respiratory effort Auscultation: rales, no rhonchi and no wheezes Cardio: Jugular venous distension: JVD Palpation: normal PMI Rate: regular rate Rhythm: regular rhythm Heart sounds: S1 normal heart sound present, S2 normal heart sound present, no click, no gallops and no murmurs GI: Auscultation: normal bowel sounds Skin: General skin exam: no rashes or lesions noted and ecchymosis Neuro: General: patient oriented x3 and no focal motor deficits Extrem: General: No clubbing, No cyanosis and Yes edema Objective Labs and Meds Result diagrams: 11/15/21 12:23 11/16/21 06:04 Lab results: Laboratory Results - last 24 hr 11/15/21 11/15/21 11/15/21 12:23 12:23 12:23 WBC 5.1 RBC 4.94 Hgb 14.2 Hct 45.2 MCV 91.5 MCH 28.7 MCHC 31.4 RDW 14.2 Plt Count 242 D MPV 9.2 L Immature Gran % (Auto) 0.2 Neut % (Auto) 58.6 Lymph % (Auto) 27.1 [place] % (Auto) 12.3 H Eos % (Auto) 1.4 Baso % (Auto) 0.4 Lymph # (Auto) 1.4 [place] # (Auto) 0.6 Eos # (Auto) 0.1 Baso # (Auto) 0.0 Abs Immat Gran (auto) 0.01 Absolute Neuts (auto) 3.0 Absolute Nucleated RBC 0.000 Nucleated RBC % (auto) 0.0 PT 12.3 INR 1.1 APTT 27.6 Sodium 140 Potassium 5.4 H D Chloride 104 Carbon Dioxide 24 Anion Gap 17 BUN 14 Creatinine 0.80 Estim Creat Clear Calc 58.6 Estimated GFR > 60 Random Glucose 93 Calcium 8.2 L D Magnesium 2.2 Total Bilirubin 1.2 H Direct Bilirubin 0.3 AST 24 D ALT 11 Alkaline Phosphatase 55 Troponin I High Sens B-Natriuretic Peptide Total Protein 7.1 Albumin 3.7 Urine Color Urine Appearance Urine pH Ur Specific [place] Urine Protein Urine Glucose (UA) Urine Ketones Urine Blood Urine Nitrite Ur Leukocyte Esterase COVID-19 (SUZY) COVID-[facility] Clin Com 11/15/21 11/15/21 11/15/21 12:23 12:23 21:38 WBC RBC Hgb Hct MCV MCH MCHC RDW Plt Count MPV Immature Gran % (Auto) Neut % (Auto) Lymph % (Auto) [place] % (Auto) Eos % (Auto) Baso % (Auto) Lymph # (Auto) [place] # (Auto) Eos # (Auto) Baso # (Auto) Abs Immat Gran (auto) Absolute Neuts (auto) Absolute Nucleated RBC Nucleated RBC % (auto) PT INR APTT Sodium Potassium Chloride Carbon Dioxide Anion Gap BUN Creatinine Estim Creat Clear Calc Estimated GFR Random Glucose Calcium Magnesium Total Bilirubin Direct Bilirubin AST ALT Alkaline Phosphatase Troponin I High Sens 4.2 B-Natriuretic Peptide 454 H Total Protein Albumin Urine Color YELLOW Urine Appearance CLEAR Urine pH 6.0 Ur Specific [place] 1.010 Urine Protein NEG Urine Glucose (UA) NEG Urine Ketones NEG Urine Blood NEG Urine Nitrite NEG Ur Leukocyte Esterase NEG COVID-19 (SUZY) Negative COVID-19 Clin Com See Note 11/16/21 11/16/21 06:04 06:04 WBC RBC Hgb Hct MCV MCH MCHC RDW Plt Count MPV Immature Gran % (Auto) Neut % (Auto) Lymph % (Auto) [place] % (Auto) Eos % (Auto) Baso % (Auto) Lymph # (Auto) [place] # (Auto) Eos # (Auto) Baso # (Auto) Abs Immat Gran (auto) Absolute Neuts (auto) Absolute Nucleated RBC Nucleated RBC % (auto) PT INR APTT Sodium 143 Potassium 4.3 D Chloride 100 Carbon Dioxide 36 H Anion Gap 11 L BUN 11 Creatinine 0.70 Estim Creat Clear Calc 67.0 Estimated GFR > 60 Random Glucose 90 Calcium 8.5 Magnesium Total Bilirubin Direct Bilirubin AST ALT Alkaline Phosphatase Troponin I High Sens B-Natriuretic Peptide 335 H Total Protein Albumin Urine Color Urine Appearance Urine pH Ur Specific [place] Urine Protein Urine Glucose (UA) Urine Ketones Urine Blood Urine Nitrite Ur Leukocyte Esterase COVID-19 (SUZY) COVID-19 Clin Com Imaging Radiologist's impression: Impressions Chest X-Ray 11/15/21 12:53 IMPRESSION: Chronic left lung findings. Cardiomegaly without pulmonary edema. Question small right pleural effusion. Assessment and Plan (1) Acute heart failure: Qualifiers: Heart failure type: systolic Qualified Code(s): I50.21 - Acute systolic (congestive) heart failure Status: Acute patient present with symptoms highly consistent with acute heart failure most likely due to loss of AV synchrony with recurrent atrial tachycardia/ atypical flutter with adequate rate control. She has underlying myxomatous mitral valve disease but does not. There is sudden worsening of her mitral regurgitation at this point time. Clinically doing better with diuresis. Continue IV diuresis. Strict intake and output chart needs to be pursued. Based on recent data will add Jardiance 10 mg as well as add Aldactone 12.5 mg to her regimen. She is very concerned about development of heart failure syndrome. Discussed the mechanism of heart failure and management of heart failure in details. Please provide with heart failure education to this patient. Continue to monitor electrolytes cleared please check magnesium is patient complaining some cramps in her legs. And replace if need be. Continue monitor BMP and BNP and will definitely guide treatment. Advised to be out of bed to chair and ambulate if possible today. Continue oxygen supplementation for comfort. (2) Atrial tachycardia: Status: Acute Patient with what appears to be atypical atrial tachycardia flutter. Rate is controlled probably related to prior Multaq therapy. Rhythm is very difficult to interpret on EKG. However most likely explanation for heart failure syndrome at this point in time. She has not been able to tolerate full-dose Eliquis in the past due to recurrent epistaxis. Eliquis was reduced to 2.5 mg b.i.d. but this is in adequate anticoagulation. At this point time would not pursue rhythm control acutely given that she has not been able to tolerate full-dose Eliquis and she has not had any therapy to treatment for epistaxis. I would like to given the challenge with full-dose Eliquis with other measures to reduce risk of epistaxis. If she is able to tolerate Eliquis at full dose for couple weeks may at that point time consider doing MURALI guided cardioversion. This was discussed with her in details. Management was discussed. Will most likely require alternative antiarrhythmic drug therapy due to recurrence of atrial tachycardia / flutter on Multaq therapy. Most likely amiodarone. Other possibilities of ablation was discussed with her as well. 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 Has not been able to tolerate statin therapy. Currently on full oral anticoagulation avoid aspirin therapy. Will continue to follow with you. Greater than 45 minutes was spent in managing her complex care Procedures Date of Service Date of Service: 11/16/21
--- NOTE | 2021-11-16 10:40 | HO.PM.IMPN ---
Subjective Subjective Date of Service: 11/16/21 <MINI Cervantes - Last Filed: 11/16/21 13:21> 11/17/21 <Jim Elam MD - Last Filed: 11/17/21 11:45> Interval History: 71 year old woman with medical history significant for cad with history of nstemi, paroxysmal atrial fibrillation and flutter, marfanoid habitus, myxonatous mitral valve, and anxiety presented to the hospital for evaluation of one month of worsening BERGER, fatigue, and palpitations.?Admitted for acute systolic CHF and atrial flutter. Has been seen by cardiology. Has been tolerating increase dose of eliquis 5mg BID for anticoagulation. Has not had any recurrence of epistaxis. Continue on 3L humidifed oxygen with O2 sats maintained >93%. Diuresis with 40mg lasix. She has been NPO but is requesting to eat since MURALI and cardioversion will not be performed today. Per cards, must tolerate adequate anticoagulation prior to procedures. She is also reporting intermittent bilateral leg cramping. Lytes were normal this morning. Has not been ambulating. BNP improved to 335 from 454. She reports shortness of breath and palpitations have improved. Denies orthopnea. Had fleeting left sided chest pain this pain earlier today without radiation that was mild. Has not had any recurrence of retrosternal chest pressure. <MINI Cervantes - Last Filed: 11/16/21 13:21> 71 year old woman with medical history significant for cad with history of nstemi, paroxysmal atrial fibrillation and flutter, marfanoid habitus, myxonatous mitral valve, and anxiety presented to the hospital for evaluation of one month of worsening BERGER, fatigue, and palpitations.?Admitted for acute systolic CHF and atrial flutter. Has been seen by cardiology. Has been tolerating increase dose of eliquis 5mg BID for anticoagulation. Has not had any recurrence of epistaxis. Continue on 3L humidifed oxygen with O2 sats maintained >93%. Diuresis with 40mg lasix. She has been NPO but is requesting to eat since MURALI and cardioversion will not be performed today. Per cards, must tolerate adequate anticoagulation prior to procedures. She is also reporting intermittent bilateral leg cramping. Lytes were normal this morning. Has not been ambulating. BNP improved to 335 from 454. She reports shortness of breath and palpitations have improved. Denies orthopnea. Had fleeting left sided chest pain this pain earlier today without radiation that was mild. Has not had any recurrence of retrosternal chest pressure. <Jim Elam MD - Last Filed: 11/17/21 11:45> Physical Exam Vital Signs: Vital Signs: Last Vital Signs Temp 97.0 F 11/16/21 07:35 Pulse 86 11/16/21 07:35 Resp 20 11/16/21 07:35 BP 100/58 L 11/16/21 07:35 Pulse Ox 94 11/16/21 07:35 O2 Del Method 11/16/21 07:35 O2 Flow Rate 3 11/16/21 07:35 BMI result Body Mass Index 24.5 <MINI Cervantes - Last Filed: 11/16/21 13:21> Constitutional - Awake and Alert, No apparent distress Cardiovascular - S1S2, RRR, 1+ BLE edema, L>R Respiratory - Diffuse crackles in the lower lobes bilaterally. Normal lung expansion, Normal respiratory effort, No respiratory distress Gastrointestinal - NT / ND; +BS; No rebound or guarding Extremities - no calf tenderness bilaterally Skin - Warm/Dry Neurological - Alert & oriented x3, No focal deficit Psychological - Appropriate affect <MINI Cervantes - Last Filed: 11/16/21 13:21> Objective Data Active Medications Alprazolam (Alprazolam 0.25 Mg Tablet) 0.25 mg PO BEDTIME [facility] Last Admin: 11/15/21 21:33 Dose: 0.25 mg Documented By: SHEMAR Apixaban (Apixaban 5 Mg Tablet) 5 mg PO BID [facility] Last Admin: 11/15/21 21:33 Dose: 5 mg Documented By: SHEMAR Docusate Sodium (Docusate Sodium 100 Mg Capsule) 100 mg PO BID [facility] Last Admin: 11/15/21 21:33 Dose: Not Given Documented By: SHEMAR Non-Admin Reason: Patient Refused Dorzolamide/Timolol (Dorzolamide/Timolo 2.23%/0.68% 10 Ml Drbtl) 1 drop EYE-BOTH BID [facility] Last Admin: 11/15/21 21:33 Dose: Not Given Documented By: SHEMAR Non-Admin Reason: Med Not Available Empagliflozin (Empagliflozin 10 Mg Tablet) 10 mg PO DAILY [facility] Furosemide (Furosemide 40 Mg/4 Ml Vial) 40 mg IVPUSH DAILY [facility]; Protocol Metoprolol Tartrate (Metoprolol Tartrate 50 Mg Tablet) 50 mg PO BID [facility]; Protocol Last Admin: 11/15/21 21:33 Dose: 50 mg Documented By: SHEMAR Non-Formulary Medication (Bimatoprost) 1 drop EYE-BOTH BEDTIME [facility] Pharmacy Consult (Consult Rx Perform Med Rec) 1 each MISCELLANE ONCE PRN PRN Reason: Consult order Sodium Chloride (0.9 % Sodium Chloride Flush 3 Ml Syringe) 3 ml IVFLUSH QSHIFT [facility] Last Admin: 11/16/21 01:23 Dose: Not Given Documented By: TERRY Non-Admin Reason: Patient Asleep Spironolactone (Spironolactone 25 Mg Tablet) 12.5 mg PO DAILY [facility]; Protocol <MINI Cervantes - Last Filed: 11/16/21 13:21> Labs CBC & Chem 7: : 11/15/21 12:23 11/17/21 05:57 <MINI Cervantes - Last Filed: 11/16/21 13:21> Labs: Laboratory Results - last 24 hr 11/15/21 11/15/21 11/15/21 12:23 12:23 12:23 MCV 91.5 MCH 28.7 MCHC 31.4 RDW 14.2 Plt Count 242 D MPV 9.2 L Immature Gran % (Auto) 0.2 Neut % (Auto) 58.6 Lymph % (Auto) 27.1 [place] % (Auto) 12.3 H Eos % (Auto) 1.4 Baso % (Auto) 0.4 Lymph # (Auto) 1.4 [place] # (Auto) 0.6 Eos # (Auto) 0.1 Baso # (Auto) 0.0 Abs Immat Gran (auto) 0.01 Absolute Neuts (auto) 3.0 Absolute Nucleated RBC 0.000 Nucleated RBC % (auto) 0.0 PT 12.3 INR 1.1 APTT 27.6 Anion Gap 17 Estim Creat Clear Calc 58.6 Estimated GFR > 60 Random Glucose 93 Calcium 8.2 L D Magnesium 2.2 Total Bilirubin 1.2 H Direct Bilirubin 0.3 AST 24 D ALT 11 Alkaline Phosphatase 55 B-Natriuretic Peptide Total Protein 7.1 Albumin 3.7 Urine Color Urine Appearance Urine pH Ur Specific [place] Urine Protein Urine Glucose (UA) Urine Ketones Urine Blood Urine Nitrite Ur Leukocyte Esterase COVID-19 (SUZY) COVID-19 Clin Com 11/15/21 11/15/21 11/15/21 12:23 12:23 21:38 MCV MCH MCHC RDW Plt Count MPV Immature Gran % (Auto) Neut % (Auto) Lymph % (Auto) [place] % (Auto) Eos % (Auto) Baso % (Auto) Lymph # (Auto) [place] # (Auto) Eos # (Auto) Baso # (Auto) Abs Immat Gran (auto) Absolute Neuts (auto) Absolute Nucleated RBC Nucleated RBC % (auto) PT INR APTT Anion Gap Estim Creat Clear Calc Estimated GFR Random Glucose Calcium Magnesium Total Bilirubin Direct Bilirubin AST ALT Alkaline Phosphatase B-Natriuretic Peptide 454 H Total Protein Albumin Urine Color YELLOW Urine Appearance CLEAR Urine pH 6.0 Ur Specific [place] 1.010 Urine Protein NEG Urine Glucose (UA) NEG Urine Ketones NEG Urine Blood NEG Urine Nitrite NEG Ur Leukocyte Esterase NEG COVID-19 (SUZY) Negative COVID-19 Clin Com See Note 11/16/21 11/16/21 06:04 06:04 MCV MCH MCHC RDW Plt Count MPV Immature Gran % (Auto) Neut % (Auto) Lymph % (Auto) [place] % (Auto) Eos % (Auto) Baso % (Auto) Lymph # (Auto) [place] # (Auto) Eos # (Auto) Baso # (Auto) Abs Immat Gran (auto) Absolute Neuts (auto) Absolute Nucleated RBC Nucleated RBC % (auto) PT INR APTT Anion Gap 11 L Estim Creat Clear Calc 67.0 Estimated GFR > 60 Random Glucose 90 Calcium 8.5 Magnesium Total Bilirubin Direct Bilirubin AST ALT Alkaline Phosphatase B-Natriuretic Peptide 335 H Total Protein Albumin Urine Color Urine Appearance Urine pH Ur Specific [place] Urine Protein Urine Glucose (UA) Urine Ketones Urine Blood Urine Nitrite Ur Leukocyte Esterase COVID-19 (SUZY) COVID-19 Clin Com <MINI Cervantes - Last Filed: 11/16/21 13:21> Assessment and Plan (1) Acute heart failure: Status: Acute <MINI Cervantes - Last Filed: 11/16/21 13:21> (2) Acute respiratory failure with hypoxia: Status: Acute <MINI Cervantes - Last Filed: 11/16/21 13:21> (3) Paroxysmal atrial flutter: Status: Acute <MINI Cervantes - Last Filed: 11/16/21 13:21> (4) PAF (paroxysmal atrial fibrillation): Status: Acute <MINI Cervantes - Last Filed: 11/16/21 13:21> (5) Atherosclerotic cardiovascular disease: Status: Acute <MINI Cervantes - Last Filed: 11/16/21 13:21> Assessment and Plan: 71 year old woman with medical history significant for cad with history of nstemi, paroxysmal atrial fibrillation and flutter, marfanoid habitus, myxonatous mitral valve, and anxiety presented to the hospital for evaluation of one month of worsening BERGER, fatigue, and palpitations consistent with acute exacerbation of CHF with uncontrolled recurrent atrial flutter. Seen by cardiology and planning for MURALI and cardioversion if patient continues to tolerate increased dose of eliquis. Symptoms improving with IV diuresis. 1-acute on chronic congestive heart failure with preserved EF secondary to uncontrolled atrial flutter -Continue plan per cardiology- discussed with Dr. Huffman. -Symptoms improving with IV diuretics, continue for another day. Will check magnesium and calcium given leg cramping. Additional lytes normal this morning. -BNP trending down. Repeat BNP am -strict I&O and daily weights -Resume low-sodium cardiac diet with fluid restrictions to 1L 2-acute respiratory failure with hypoxia secondary to above -Continue with 3L humidified oxygen. Titrate as tolerated 3-paroxysmal atrial fibrillation/flutter- uncontrolled -previously on mutraq -Continue with plan per cardiology. Continue with increased eliquis 5mg BID. Monitor for epistaxis and continue humidified oxygen. Per cardiology, if adequate anticoagulation tolerated, will proceed with MURALI and cardioversion -continue metoprolol 50 mg twice daily.? Rate controlled 4-CAD -history NSTEMI around 2016, intolerant to statins -No anginal chest pain 5- Anxiety -Continue home alprazolam 0.25 at bedtime DVT prophylaxis- continue eliquis Patient requires inpatient management for IV diuresis for management of acute systolic CHF that had not been responding to outpatient furosemide. She also requires ongoing monitoring of anticoagulation for possible MURALI and cardioversion. <MINI Cervantes - Last Filed: 11/16/21 13:21> Quality Stroke Does the patient have a stroke diagnosis?: No <MINI Cervantes - Last Filed: 11/16/21 13:21> VTE Prior VTE?: No <MINI Cervantes - Last Filed: 11/16/21 13:21> VTE Risk Level:: Medical - moderate - high <MINI Cervantes - Last Filed: 11/16/21 13:21> VTE Device Contraindication: Treatment Not Indicated <MINI Cervantes - Last Filed: 11/16/21 13:21> VTE Drug Contraindication: N/A - Med Ordered <MINI Cervantes - Last Filed: 11/16/21 13:21>
[2021-11-16 11:02] LABS: Magnesium 2.1 mg/dL (1.6-2.6)
[2021-11-16] MEDS: Spironolactone 25 MG TABLET 12.5 MG PO (11:24)
[2021-11-16] MEDS: Empagliflozin 10 MG TABLET PO (11:24)
[2021-11-16] MEDS: Docusate Sodium 100 MG CAPSULE PO (11:24)
[2021-11-16] MEDS: Metoprolol Tartrate 50 MG TABLET PO ×2 (11:25→20:57)
[2021-11-16] MEDS: Furosemide 40 MG/4 ML VIAL IVPUSH (11:25)
[2021-11-16] MEDS: Apixaban 5 MG TABLET PO ×2 (11:25→20:57)
[2021-11-16] MEDS: Dorzolamide/Timolo 2.23%/0.68% 10 ML DRBTL 1 DROP EYE-BOTH ×2 (11:26→21:00)
[2021-11-16] MEDS: 0.9 % Sodium Chloride Flush 3 ML SYRINGE IVFLUSH ×3 (11:28→20:58)
[2021-11-16] MEDS: ALPRAZolam 0.25 MG TABLET PO (20:57)
[2021-11-17] VITALS (7 sets, daily range): BP systolic 93–118; BP diastolic 55–75; PULSE 87–111; RESP 16–20; TEMP 36.4–37.1; O2SAT 93–98; BMI 24.6
[2021-11-17 07:01] LABS: B Type Natriuretic Peptide 180 pg/mL (<100)
[2021-11-17 07:04] LABS: Anion Gap 12 (12-20); Blood Urea Nitrogen 14 mg/dL (9-16); Calcium 8.5 mg/dL (8.4-10.2); Carbon Dioxide 37 mmol/L (22-29); Chloride 97 mmol/L (96-108); Estimated Glomerular Filt Rate > 60; Glucose Random 76 mg/dL (60-115); Potassium 4.1 mmol/L (3.3-5.1); Sodium 142 mmol/L (135-145)
[2021-11-17] MEDS: Metoprolol Tartrate 50 MG TABLET PO ×2 (09:00→20:30)
--- NOTE | 2021-11-17 09:18 | HO.PM.IMPN ---
Subjective Subjective Date of Service: 11/17/21 <MINI Cervantes - Last Filed: 11/17/21 12:15> 11/18/21 <Jim Elam MD - Last Filed: 11/18/21 09:49> Interval History: Patient seen for follow-up for acute on chronic exacerbation of heart failure with preserved ejection fraction with uncontrolled paroxysmal atrial flutter. Feeling better overall. Denies sob, cp. Continues with short-lived intermittent palpitations. She has been feeling some irritation in the right Nare but no epistaxis. Has not ambulated. Continues reporting generalized weakness. <MINI Cervantes - Last Filed: 11/17/21 12:15> Patient seen for follow-up for acute on chronic exacerbation of heart failure with preserved ejection fraction with uncontrolled paroxysmal atrial flutter. Continues on IV Lasix for diuresis. Seen by Dr. Huffman in Cardiology yesterday and spironolactone 12.5 mg and Jardiance 10 mg were added. BNP is trending down as 180 this morning. Renal function and electrolyte levels stable including magnesium 2.1. She continues with increased dose of Eliquis 5 mg twice daily for anticoagulation. She has been feeling some irritation in the right Nare but no epistaxis. Continues with humidified O2 at 3L with O2 sat of 93%. She is feeling well overall. Rare intermittent short-lived palpitations. No sob or chest pain. Has not ambulated. Continues reporting generalized weakness <Jim Elam MD - Last Filed: 11/18/21 09:49> Review of Systems HEENT: irritation R nare, no epistaxis Card: No chest pain, intermittent palpitations Resp: No shortness of breath <MINI Cervantes - Last Filed: 11/17/21 12:15> Review of Systems: Yes all other systems are reviewed and are negative <MINI Cervantes - Last Filed: 11/17/21 12:15> Physical Exam Vital Signs: Vital Signs: Last Vital Signs Temp 98.0 F 11/17/21 07:47 Pulse 98 11/17/21 07:47 Resp 17 11/17/21 07:47 BP 118/62 11/17/21 07:47 Pulse Ox 93 11/17/21 07:47 O2 Del Method 11/17/21 07:47 O2 Flow Rate 2 11/17/21 07:47 BMI result Body Mass Index 24.6 <MINI Cervatnes - Last Filed: 11/17/21 12:15> Constitutional - Awake and Alert, No apparent distress Eyes - PERRLA, EOMI Nose- erythematous irrtation at kesselbach's plexus in right nare without bleeding Cardiovascular - S1S2, RRR, 1+ pitting edema b/l, L>R Respiratory - Diffuse coarse crackles bilaterally. Normal lung expansion, Normal respiratory effort, No respiratory distress, CTA bilaterally Gastrointestinal - NT / ND; +BS; No rebound or guarding Extremities - no calf tenderness bilaterally, no calf swelling Skin - Warm/Dry Neurological - Alert & oriented x3, No focal deficit Psychological - Appropriate affect <MINI Cervantes - Last Filed: 11/17/21 12:15> Objective Data Active Medications Alprazolam (Alprazolam 0.25 Mg Tablet) 0.25 mg PO BEDTIME [facility] Last Admin: 11/16/21 20:57 Dose: 0.25 mg Documented By: ANMOL Apixaban (Apixaban 5 Mg Tablet) 5 mg PO BID [facility] Last Admin: 11/16/21 20:57 Dose: 5 mg Documented By: ANMOL Docusate Sodium (Docusate Sodium 100 Mg Capsule) 100 mg PO BID [facility] Last Admin: 11/16/21 20:57 Dose: Not Given Documented By: ANMOL Non-Admin Reason: Patient Refused Dorzolamide/Timolol (Dorzolamide/Timolo 2.23%/0.68% 10 Ml Drbtl) 1 drop EYE-BOTH BID [facility] Last Admin: 11/16/21 21:00 Dose: 1 drop Documented By: ANMOL Empagliflozin (Empagliflozin 10 Mg Tablet) 10 mg PO DAILY [facility] Last Admin: 11/16/21 11:24 Dose: 10 mg Documented By: LATISHA Furosemide (Furosemide 40 Mg/4 Ml Vial) 40 mg IVPUSH DAILY [facility]; Protocol Last Admin: 11/16/21 11:25 Dose: 40 mg Documented By: LATISHA Metoprolol Tartrate (Metoprolol Tartrate 50 Mg Tablet) 50 mg PO BID [facility]; Protocol Last Admin: 11/16/21 20:57 Dose: 50 mg Documented By: ANMOL Non-Formulary Medication (Bimatoprost) 1 drop EYE-BOTH BEDTIME [facility] Pharmacy Consult (Consult Rx Perform Med Rec) 1 each MISCELLANE ONCE PRN PRN Reason: Consult order Sodium Chloride (0.9 % Sodium Chloride Flush 3 Ml Syringe) 3 ml IVFLUSH QSHIFT [facility] Last Admin: 11/16/21 20:58 Dose: 3 ml Documented By: ANMOL Spironolactone (Spironolactone 25 Mg Tablet) 12.5 mg PO DAILY [facility]; Protocol Last Admin: 11/16/21 11:24 Dose: 12.5 mg Documented By: CTORRZ <MINI Cervantes - Last Filed: 11/17/21 12:15> Labs CBC & Chem 7: : 11/15/21 12:23 11/18/21 06:47 <MINI Cervantes - Last Filed: 11/17/21 12:15> Labs: Laboratory Results - last 24 hr 11/16/21 11/17/21 11/17/21 06:04 05:57 05:57 Anion Gap 12 Estim Creat Clear Calc 67.0 Estimated GFR > 60 Random Glucose 76 Calcium 8.5 Magnesium 2.1 B-Natriuretic Peptide 180 H <MINI Cervantes - Last Filed: 11/17/21 12:15> Assessment and Plan (1) Acute heart failure: Status: Acute <MINI Cervantes - Last Filed: 11/17/21 12:15> (2) Acute respiratory failure with hypoxia: Status: Acute <MINI Cevrantes - Last Filed: 11/17/21 12:15> (3) PAF (paroxysmal atrial fibrillation): Status: Acute <MINI Cervantes - Last Filed: 11/17/21 12:15> (4) Paroxysmal atrial flutter: Status: Acute <MINI Cervantes - Last Filed: 11/17/21 12:15> Assessment and Plan: 71 year old woman with medical history significant for cad with history of nstemi, paroxysmal atrial fibrillation and flutter, marfanoid habitus, myxonatous mitral valve, and anxiety presented to the hospital for evaluation of one month of worsening BERGER, fatigue, and palpitations consistent with acute exacerbation of CHF with uncontrolled recurrent atrial flutter. 1-acute on chronic congestive heart failure with preserved EF (HFpEF) secondary to uncontrolled atrial flutter--clinically improving, thus far neg 2.5 L -Continue plan as discussed with Dr. Huffman - continu IV diuretics, - continue Continue aldactone 12.5mg and jardiance 10mg initiated yesterday. Renal function, electrolytes, glucose normal. Daily chemistries -BNP trending down. Daily BNP -strict I&O and daily weights. -Resume low-sodium cardiac diet with fluid restrictions to 1L -Continues with weakness likely secondary to decompensation ongoing for 1 month. PT eval ordered 2-acute respiratory failure with hypoxia secondary to above -Continue with 3L humidified oxygen. Titrate as tolerated -Removed oxygen on exam without evidence of distress. Desat to 87% on RA. -Consider home O2 eval on discharge 3-paroxysmal atrial fibrillation/flutter- uncontrolled -previously on mutraq -Continue with plan per cardiology. Continue with increased eliquis 5mg BID. Monitor for epistaxis and continue humidified oxygen. There is some irritation in the right nare at kesselbach's plexus, but no bleeding. Add nasal saline spray. - Per cardiology, if adequate anticoagulation tolerated, will proceed with MURALI and cardioversion -continue metoprolol 50 mg twice daily.? Rate controlled 4- Dark orange urine this morning -UA with reflex culture -increased risk of UTI given history of recurrence, recent jardiance initiation 5-CAD -history NSTEMI around 2016, intolerant to statins -No anginal chest pain 6- Anxiety -Continue home alprazolam 0.25 at bedtime DVT prophylaxis- continue eliquis Patient requires inpatient management for IV diuresis for management of acute systolic CHF that had not been responding to outpatient furosemide. She also requires ongoing monitoring of anticoagulation for possible MURALI and cardioversion. <MINI Cervantes - Last Filed: 11/17/21 12:15> 71 year old woman with medical history significant for cad with history of nstemi, paroxysmal atrial fibrillation and flutter, marfanoid habitus, myxonatous mitral valve, and anxiety presented to the hospital for evaluation of one month of worsening BERGER, fatigue, and palpitations consistent with acute exacerbation of CHF with uncontrolled recurrent atrial flutter. 1-acute on chronic congestive heart failure with preserved EF (HFpEF) secondary to uncontrolled atrial flutter--clinically improving, thus far neg 2.5 L -Continue plan as discussed with Dr. Huffman - continu IV diuretics, - continue Continue aldactone 12.5mg and jardiance 10mg initiated yesterday. Renal function, electrolytes, glucose normal. Daily chemistries -BNP trending down. Daily BNP -strict I&O and daily weights. -20ml last 24 hours -Resume low-sodium cardiac diet with fluid restrictions to 1L -Continues with weakness likely secondary to decompensation ongoing for 1 month. PT eval ordered 2-acute respiratory failure with hypoxia secondary to above -Continue with 3L humidified oxygen. Titrate as tolerated -Removed oxygen on exam without evidence of distress. Desat to 87% on RA. 3-paroxysmal atrial fibrillation/flutter- uncontrolled -previously on mutraq -Continue with plan per cardiology. Continue with increased eliquis 5mg BID. Monitor for epistaxis and continue humidified oxygen. There is some irritation in the right nare at kesselbach's plexus, but no bleeding. Continue humidified oxygen. Add nasal saline spray. - Per cardiology, if adequate anticoagulation tolerated, will proceed with MURALI and cardioversion -continue metoprolol 50 mg twice daily.? Rate controlled 4- Dark orange urine -UA with reflex culture -increased risk of UTI given history of recurrence, recent jardiance initiation 5-CAD -history NSTEMI around 2016, intolerant to statins -No anginal chest pain 6- Anxiety -Continue home alprazolam 0.25 at bedtime DVT prophylaxis- continue eliquis Patient requires inpatient management for IV diuresis for management of acute systolic CHF that had not been responding to outpatient furosemide. She also requires ongoing monitoring of anticoagulation for possible MURALI and cardioversion. <Jim Elam MD - Last Filed: 11/18/21 09:49> Quality Stroke Does the patient have a stroke diagnosis?: No <MINI Cervantes - Last Filed: 11/17/21 12:15> VTE Prior VTE?: No <MINI Cervantes - Last Filed: 11/17/21 12:15> VTE Risk Level:: Medical - moderate - high <MINI Cervantes - Last Filed: 11/17/21 12:15> VTE Device Contraindication: Treatment Not Indicated <MINI Cervantes - Last Filed: 11/17/21 12:15> VTE Drug Contraindication: N/A - Med Ordered <MINI Cervantes - Last Filed: 11/17/21 12:15>
[2021-11-17] MEDS: Spironolactone 25 MG TABLET 12.5 MG PO (09:32)
[2021-11-17] MEDS: Apixaban 5 MG TABLET PO ×2 (09:32→20:30)
[2021-11-17] MEDS: Docusate Sodium 100 MG CAPSULE PO (09:32)
[2021-11-17] MEDS: Empagliflozin 10 MG TABLET PO (09:32)
[2021-11-17] MEDS: Furosemide 40 MG/4 ML VIAL IVPUSH (09:33)
[2021-11-17] MEDS: 0.9 % Sodium Chloride Flush 3 ML SYRINGE IVFLUSH ×2 (09:36→15:11)
[2021-11-17] MEDS: Dorzolamide/Timolo 2.23%/0.68% 10 ML DRBTL 1 DROP EYE-BOTH ×2 (09:39→20:33)
--- NOTE | 2021-11-17 10:52 | PM.PNCARD ---
Subjective Subjective Date of Service: 11/17/21 <MARIKA Moyer - Last Filed: 11/17/21 11:38> 11/17/21 <Ellis Huffman MD - Last Filed: 11/17/21 12:42> Principal diagnosis: Aflutter, acute HF <MARIKA Moyer - Last Filed: 11/17/21 11:38> Interval history: Seen at 0920. Today she reports having small amount of blood on tissue when wiping nose. She feels some irritation in right nares and is very concerned about recurrent epistaxis. Continues on full dose of Eliquis at present. Breathing is much improved. Still using O2 with nasal cannula. Does not use at home. No chest pains, palpitations, dizziness or edema. Tele shows Aflutter with rates 90-low 100s. <MARIKA Moyer - Last Filed: 11/17/21 11:38> Review of Systems Review of Systems as above <MARIKA Moyer - Last Filed: 11/17/21 11:38> Yes all other systems are reviewed and are negative <MARIKA Moyer - Last Filed: 11/17/21 11:38> Physical Exam Vital Signs: Last Vital Signs Temp 98.0 F 11/17/21 07:47 Pulse 98 11/17/21 10:20 Resp 17 11/17/21 07:47 BP 118/62 11/17/21 10:20 Pulse Ox 93 11/17/21 10:20 O2 Del Method 11/17/21 07:47 O2 Flow Rate 2 11/17/21 07:47 BMI result Body Mass Index 24.6 <MARIKA Moyer - Last Filed: 11/17/21 11:38> Const General: cooperative, comfortable and no acute distress <MARIKA Moyer Last Filed: 11/17/21 11:38> Neck Neck: Yes normal visual inspection and Yes no JVD <MARIKA Moyer Last Filed: 11/17/21 11:38> Resp Effort & Inspection: normal respiratory effort <MARIKA Moyer Last Filed: 11/17/21 11:38> Auscultation: clear to auscultation bilaterally, no crackles, no rales, no rhonchi and no wheezes <Monika Gomez NP - Last Filed: 11/17/21 11:38> Cardio Other: heart tones heard best posteriorly <[facility] Last Filed: 11/17/21 11:38> Jugular venous distension: no JVD <[facility] Last Filed: 11/17/21 11:38> Rate: regular rate <Monika Gomez NP - Last Filed: 11/17/21 11:38> Rhythm: abnormal rhythm <Monika Gomez NP - Last Filed: 11/17/21 11:38> Heart sounds: S1 normal heart sound present, S2 normal heart sound present, no gallops, no murmurs and no rubs <[facility] Last Filed: 11/17/21 11:38> Peripheral pulses: Peripheral pulses 2+ throughout <Monika Gomez NP - Last Filed: 11/17/21 11:38> GI Inspection: Yes normal to inspection <Monika Gomez NP - Last Filed: 11/17/21 11:38> Extrem General: Yes normal to inspection, No no pedal edema and No calf tenderness <Monika Gomez NP - Last Filed: 11/17/21 11:38> Psych Appearance: grossly normal <[facility] Last Filed: 11/17/21 11:38> Mental Status: mental status grossly normal <Monika Gomez NP - Last Filed: 11/17/21 11:38> Speech and movement: Normal speech and movement present <Monika Gomez [facility] Last Filed: 11/17/21 11:38> Objective Labs and Meds Result diagrams: : 11/15/21 12:23 11/17/21 05:57 <Monika Gomez NP - Last Filed: 11/17/21 11:38> Lab results: Laboratory Results - last 24 hr 11/16/21 11/17/21 11/17/21 06:04 05:57 05:57 Sodium 142 Potassium 4.1 Chloride 97 Carbon Dioxide 37 H Anion Gap 12 BUN 14 Creatinine 0.70 Estim Creat Clear Calc 67.0 Estimated GFR > 60 Random Glucose 76 Calcium 8.5 Magnesium 2.1 B-Natriuretic Peptide 180 H <MARIKA Moyer - Last Filed: 11/17/21 11:38> Progress Note: A&P Assessment and plan (1) Acute heart failure: Status: Acute <MARIKA Moyer - Last Filed: 11/17/21 11:38> Assessment and Plan: Admit with HF symptoms. BNP elevated at 454. Recent findings of recurrent Aflutter vs possible atrial tach. Last echo done 09/19/2021 showed EF 60-65%. She is being diuresed with IV Lasix with negative fluid balance 2500 cc since admission. BNP down to 180 today. Reports breathing is much improved, not quite normal yet. She has no rales or edema on exam. Still wearing oxygen with nasal cannula, 2 L with sat 93%. Aldactone and Jardiance have been added for her heart failure treatment. She continues on IV Lasix at present. Possible change to p.o. tomorrow if breathing further improved. <MARIKA Moyer - Last Filed: 11/17/21 11:38> Admit with HF symptoms. BNP elevated at 454. Recent findings of recurrent Aflutter vs possible atrial tach. Last echo done 09/19/2021 showed EF 60-65%. She is being diuresed with IV Lasix with negative fluid balance 2500 cc since admission. BNP down to 180 today. Reports breathing is much improved, not quite normal yet. She has no rales or edema on exam. Still wearing oxygen with nasal cannula, 2 L with sat 93%. Aldactone and Jardiance have been added for her heart failure treatment. She continues on IV Lasix at present. Possible change to p.o. tomorrow if breathing further improved. Patient seen and examined. Case discussed with Monika Gomez. Overall feeling better but still requiring oxygen. Continue IV diuresis for 1 more day. Continue Aldactone and Jardiance. Strict intake and output chart needs to be pursued. Follow-up BMP and BNP tomorrow. Replace electrolytes as needed. Oxygen desaturation study. Ambulate today. Heart failure management was discussed and most likely due to loss of AV synchrony. See below for discussion <Ellis Huffman MD - Last Filed: 11/17/21 12:42> (2) Paroxysmal atrial flutter: Status: Acute <MARIKA Moyer - Last Filed: 11/17/21 11:38> Assessment and Plan: History of PAF which had been suppressed Multaq. Recent recurrence of tachy arrhythmia, PAF versus atrial tach and then heart failure findings as above. Holter monitor done 10/27/2021 showed atrial flutter with average heart rate 74, occasional PVCs. EKG and threat monitoring analyst this admission continue to show good rate control. She is on metoprolol tartrate 50 mg b.i.d. She is also on Eliquis for anticoagulation. Dose had been reduced to 2.5 mg b.i.d. by her PCP due to issues with epistaxis. Yesterday dose increased back to 5 mg b.i.d. which is the appropriate dose for her age and weight. Today she reports having small amount of blood on the tissue when she wipes her nose. She does have an ENT appointment in December. I called that office and left message with manager sustainability requesting that she have a sooner appointment so that her anticoagulation can be continued at full dose and rhythm control can be pursued. At present we will continue with heart rate control. MURALI may be considered if she tolerates full dose Eliquis for a few weeks. <MARIKA Moyer - Last Filed: 11/17/21 11:38> History of PAF which had been suppressed Multaq. Recent recurrence of tachy arrhythmia, PAF versus atrial tach and then heart failure findings as above. Holter monitor done 10/27/2021 showed atrial flutter with average heart rate 74, occasional PVCs. EKG and threat monitoring analyst this admission continue to show good rate control. She is on metoprolol tartrate 50 mg b.i.d. She is also on Eliquis for anticoagulation. Dose had been reduced to 2.5 mg b.i.d. by her PCP due to issues with epistaxis. Yesterday dose increased back to 5 mg b.i.d. which is the appropriate dose for her age and weight. Today she reports having small amount of blood on the tissue when she wipes her nose. She does have an ENT appointment in December. I called that office and left message with manager sustainability requesting that she have a sooner appointment so that her anticoagulation can be continued at full dose and rhythm control can be pursued. At present we will continue with heart rate control. MURALI may be considered if she tolerates full dose Eliquis for a few weeks. Patient seen and discussed. Patient does not have paroxysmal atrial flutter as mention in the problem list but more persistent atrial flutter/atrial tachycardia. Has failed antiarrhythmic drug therapy with Multaq. Rate is borderline controlled. Add digoxin 0.125 mg to metoprolol given lower blood pressure as she gets lightheaded. Currently on 5 mg b.i.d. of Eliquis and having some spotting from her nose. If she develops significant epistaxis or Eliquis will need to be discontinued and she will require sooner if possible ENT appointment for further local treatment approaches. If she is able to tolerate full-dose Eliquis for few weeks then will pursue rhythm control approach. May require alternative antiarrhythmic drug therapy such as amiodarone. <Ellis Huffman MD - Last Filed: 11/17/21 12:42> (3) Atrial tachycardia: Status: Acute <MARIKA Moyer - Last Filed: 11/17/21 11:38> (4) Myxomatous mitral valve: Status: Acute <MARIKA Moyer - Last Filed: 11/17/21 11:38> Assessment and Plan: Moderate posterior mitral valve prolapse with mild MR seen on last echo 09/19/2021. Followed by our outpatient cardiology office <MARIKA Moyer - Last Filed: 11/17/21 11:38> (5) Marfanoid habitus: Status: Acute <MARIKA Moyer - Last Filed: 11/17/21 11:38> Time Spent With Patient Time: Total time spent is greater than 50% in coordination of care (as documented) at patient's floor/unit and/or counseling patient: 24 <MARIKA Moyer - Last Filed: 11/17/21 11:38> Progress Note: Quality Stroke Does the patient have a stroke diagnosis?: No <MARIKA Moyer - Last Filed: 11/17/21 11:38> Procedures Date of Service Date of Service: 11/17/21 <MARIKA Moyer - Last Filed: 11/17/21 11:38>
[2021-11-17 11:00] LABS: Appearance Urine HAZY; Color Urine YELLOW; Glucose Urine UA 500 MG/DL (NEG); Leukocyte Esterase Urine NEG (NEG); Nitrite Urine NEG (NEG); PH 5.5 (5.0-8.0); Urine Blood NEG (NEG); Urine Ketones 15 MG/DL (NEG); Urine Protein NEG (NEG-TRACE)
[2021-11-17] MEDS: Digoxin 0.125 MG TABLET PO (15:09)
[2021-11-17] MEDS: ALPRAZolam 0.25 MG TABLET PO (20:30)
[2021-11-18 06:34] VITALS: O2SAT 96
[2021-11-18 07:47] VITALS: BP 122/74; PULSE 106; RESP 16; TEMP 36; O2SAT 94
[2021-11-18 08:18] LABS: Anion Gap 15 (12-20); Blood Urea Nitrogen 18 mg/dL (9-16); Calcium 8.6 mg/dL (8.4-10.2); Carbon Dioxide 36 mmol/L (22-29); Chloride 96 mmol/L (96-108); Creatinine Clr Calc Pharmacy 72.1; Estimated Glomerular Filt Rate > 60; Glucose Random 77 mg/dL (60-115); Potassium 3.9 mmol/L (3.3-5.1); Sodium 143 mmol/L (135-145)
[2021-11-18] MEDS: Dorzolamide/Timolo 2.23%/0.68% 10 ML DRBTL 1 DROP EYE-BOTH ×2 (08:32→20:15)
[2021-11-18] MEDS: Docusate Sodium 100 MG CAPSULE PO ×2 (08:32→19:45)
[2021-11-18] MEDS: Furosemide 40 MG/4 ML VIAL IVPUSH (08:32)
[2021-11-18] MEDS: 0.9 % Sodium Chloride Flush 3 ML SYRINGE IVFLUSH ×3 (08:32→19:55)
[2021-11-18] MEDS: Spironolactone 25 MG TABLET 12.5 MG PO (08:33)
[2021-11-18] MEDS: Metoprolol Tartrate 50 MG TABLET PO ×2 (08:33→19:44)
[2021-11-18] MEDS: Apixaban 5 MG TABLET PO ×2 (08:33→19:44)
[2021-11-18] MEDS: Digoxin 0.125 MG TABLET PO (08:33)
[2021-11-18] MEDS: Empagliflozin 10 MG TABLET PO (08:34)
--- NOTE | 2021-11-18 09:49 | P.PNIM_ITS ---
Subjective Subjective Date of Service: 11/18/21 Interval History: F/u heart failure exacerbation to due PAF Interval history: continues to improve, less sob, less pedal edema, less O2 requirement HR remains intermittently Review of Systems no sob +leg edam no fever Physical Exam Vital Signs: Vital Signs: Last Vital Signs Temp 96.8 F 11/18/21 07:47 Pulse 106 H 11/18/21 07:47 Resp 16 11/18/21 07:47 BP 122/74 11/18/21 07:47 Pulse Ox 94 11/18/21 07:47 O2 Del Method 11/18/21 07:47 O2 Flow Rate 2.5 11/18/21 07:47 BMI result Body Mass Index 24.6 Const: Other: General: AO X 3, no acute distress Resp: basal rales, no resp distress CVS: S1,S2, iregular, 1+pedal edema GI: +BS, NT, no distention Skin: No rash Neuro: motor grossly intact Psych: appropriate affect Objective Data Active Medications Alprazolam (Alprazolam 0.25 Mg Tablet) 0.25 mg PO BEDTIME [facility] Last Admin: 11/17/21 20:30 Dose: 0.25 mg Documented By: ISMA Apixaban (Apixaban 5 Mg Tablet) 5 mg PO BID [facility] Last Admin: 11/18/21 08:33 Dose: 5 mg Documented By: RANDALL Digoxin (Digoxin 0.125 Mg Tablet) 0.125 mg PO DAILY [facility] Last Admin: 11/18/21 08:33 Dose: 0.125 mg Documented By: RANDALL Docusate Sodium (Docusate Sodium 100 Mg Capsule) 100 mg PO BID [facility] Last Admin: 11/18/21 08:32 Dose: 100 mg Documented By: RANDALL Dorzolamide/Timolol (Dorzolamide/Timolo 2.23%/0.68% 10 Ml Drbtl) 1 drop EYE- BOTH BID [facility] Last Admin: 11/18/21 08:32 Dose: 1 drop Documented By: RANDALL Empagliflozin (Empagliflozin 10 Mg Tablet) 10 mg PO DAILY [facility] Last Admin: 11/18/21 08:34 Dose: 10 mg Documented By: RANDALL Furosemide (Furosemide 40 Mg/4 Ml Vial) 40 mg IVPUSH DAILY [facility]; Protocol Last Admin: 11/18/21 08:32 Dose: 40 mg Documented By: RANDALL Metoprolol Tartrate (Metoprolol Tartrate 50 Mg Tablet) 50 mg PO BID [facility]; Protocol Last Admin: 11/18/21 08:33 Dose: 50 mg Documented By: RANDALL Non-Formulary Medication (Bimatoprost) 1 drop EYE-BOTH BEDTIME [facility] Pharmacy Consult (Consult Rx Perform Med Rec) 1 each MISCELLANE ONCE PRN PRN Reason: Consult order Sodium Chloride (0.9 % Sodium Chloride Flush 3 Ml Syringe) 3 ml IVFLUSH QSHIFT [facility] Last Admin: 11/18/21 08:32 Dose: 3 ml Documented By: RANDALL Sodium Chloride (Sodium Chloride 0.65 % Nasal 44 Ml Sprbtl) 1 spray NOSTRIL-B Q1H PRN PRN Reason: nasal irritation/dryness Spironolactone (Spironolactone 25 Mg Tablet) 12.5 mg PO DAILY [facility]; Protocol Last Admin: 11/18/21 08:33 Dose: 12.5 mg Documented By: RANDALL Labs CBC & Chem 7: 11/15/21 12:23 11/18/21 06:47 Labs: Laboratory Results - last 24 hr 11/17/21 11/18/21 Unknown 06:47 Anion Gap 15 Estim Creat Clear Calc 72.1 Estimated GFR > 60 Random Glucose 77 Calcium 8.6 Urine Color YELLOW Urine Appearance HAZY Urine pH 5.5 Ur Specific [place] 1.010 Urine Protein NEG Urine Glucose (UA) 500 H Urine Ketones 15 Urine Blood NEG Urine Nitrite NEG Ur Leukocyte Esterase NEG Assessment and Plan (1) Acute heart failure: Status: Acute (2) Acute respiratory failure with hypoxia: Status: Acute (3) PAF (paroxysmal atrial fibrillation): Status: Acute (4) Paroxysmal atrial flutter: Status: Acute Plan 71 year old woman with medical history significant for cad with history of nstemi, paroxysmal atrial fibrillation and flutter, marfanoid habitus, myxonatous mitral valve, and anxiety presented to the hospital for evaluation of one month of worsening BERGER, fatigue, and palpitations consistent with acute exac erbation of CHF with uncontrolled recurrent atrial flutter. 1-acute on chronic congestive heart failure with preserved EF (HFpEF) secondary to uncontrolled atrial flutter--clinically improving, thus far neg 2.9 L - continu IV diuretics, - continue Continue aldactone 12.5mg and jardiance 10mg . Monitor BMP -BNP trending down. Daily BNP -strict I&O and daily weights. -Resume low-sodium cardiac diet with fluid restrictions to 1L -Continues with weakness likely secondary to decompensation ongoing for 1 month. PT eval ordered 2-acute respiratory failure with hypoxia secondary to above -Continue with 3L humidified oxygen. Titrate as tolerated -Removed oxygen on exam without evidence of distress. Desat to 87% on RA. -Consider home O2 eval on discharge 3-paroxysmal atrial fibrillation/flutter- uncontrolled -previously on mutraq - Continue eliquis 5mg BID. Monitor for epistaxis and continue humidified oxygen. . - Per cardiology, if adequate anticoagulation tolerated, will proceed with MURALI and cardioversion, probably early next week -continue metoprolol 50 mg twice daily.? 4-CAD -history NSTEMI around 2016, intolerant to statins -No anginal chest pain 4- Anxiety -Continue home alprazolam 0.25 at bedtime DVT prophylaxis- eliquis Inpatient need: ongoing IV diuretics with CHF not yet compensated, monitoing of AF with eventual cardioversion once adequately anticoagulated Quality Stroke Does the patient have a stroke diagnosis?: No VTE Prior VTE?: No VTE Risk Level:: Medical - moderate - high VTE Device Contraindication: Treatment Not Indicated VTE Drug Contraindication: N/A - Med Ordered
[2021-11-18 11:36] VITALS: BP 100/66; PULSE 94; RESP 16; TEMP 37; O2SAT 93
--- NOTE | 2021-11-18 12:11 | PM.PNCARD ---
Subjective Subjective Date of Service: 11/18/21 Principal diagnosis: Aflutter, acute HF Interval history: Patient not having orthopnea anymore. Remains in atrial flutter/tachycardia with borderline rate control. Blood pressure is okay. She says on reducing oxygen level she felt lightheaded although oxygen saturation was still in the 90s. She has been diuresing well. Review of Systems Constitutional: Reports no additional constitutional complaints Cardiovascular: Denies chest pain, Denies syncope, Denies leg edema, Reports lightheadedness, Denies palpitations and Reports dyspnea on exertion Respiratory: Reports no additional respiratory complaints and Reports dyspnea on exertion Gastrointestinal: Reports no additional gastrointestinal complaints Genitourinary: Reports no additional female genitourinary complaints Musculoskeletal: Reports no additional musculoskeletal complaints Skin/Breast: Reports system reviewed and no additional complaints, except as docu Reports system reviewed and no additional complaints, except as documented and Denies syncope Psychiatric: Reports no additional psychiatric complaints Endocrine: Reports no additional endocrine complaints and Denies palpitations Physical Exam Vital Signs: Last Vital Signs Temp 98.6 F 11/18/21 11:36 Pulse 94 11/18/21 11:36 Resp 16 11/18/21 11:36 BP 100/66 11/18/21 11:36 Pulse Ox 93 11/18/21 11:36 O2 Del Method 11/18/21 11:36 O2 Flow Rate 2.5 11/18/21 11:36 BMI result Body Mass Index 24.6 Const General: cooperative, comfortable and no acute distress Neck Neck: Yes normal visual inspection and Yes no JVD Resp Effort & Inspection: normal respiratory effort Auscultation: clear to auscultation bilaterally, no crackles, no rales, no rhonchi and no wheezes Cardio Other: heart tones heard best posteriorly Jugular venous distension: no JVD Rate: regular rate Rhythm: abnormal rhythm Heart sounds: S1 normal heart sound present, S2 normal heart sound present, no gallops, Murmur heart sound present and no rubs Peripheral pulses: Peripheral pulses 2+ throughout GI Inspection: Yes normal to inspection Extrem General: Yes normal to inspection, No no pedal edema and No calf tenderness Psych Appearance: grossly normal Mental Status: mental status grossly normal Speech and movement: Normal speech and movement present Objective Labs and Meds Result diagrams: 11/15/21 12:23 11/18/21 06:47 Lab results: Laboratory Results - last 24 hr 11/18/21 06:47 Sodium 143 Potassium 3.9 Chloride 96 Carbon Dioxide 36 H Anion Gap 15 BUN 18 H Creatinine 0.65 Estim Creat Clear Calc 72.1 Estimated GFR > 60 Random Glucose 77 Calcium 8.6 Progress Note: A&P Assessment and plan (1) Acute heart failure: Status: Acute Assessment and Plan: Heart failure which is clinically has improved. Switch to oral Lasix. Continue Jardiance and spironolactone. Cause for heart failure could be recurrent atrial flutter. However worsening mitral regurgitation is also possible. See below. Oxygen desaturation study. Ambulate as tolerated. If she remains well by tomorrow morning can potentially discharge her home with outpatient follow-up in the near future. (2) Atrial tachycardia: Status: Acute Assessment and Plan: Atrial tachycardia/flutter, failed Multaq therapy. Question related to worsening mitral valve disease. Will follow-up with limited echocardiogram. Continue rate control with metoprolol and digoxin. Continue full oral anticoagulation with Eliquis which she is tolerating. If she develops recurrent epistaxis this might be an issue. Will hold off on rhythm control till we get a repeat echocardiogram as well as till she tolerates Eliquis for 7-10 days. Follow up in the clinic in 10 days. (3) Myxomatous mitral valve: Status: Acute Assessment and Plan: Prior myxomatous mitral valve disease with today's exam appears that her mitral regurgitation appears worse clinically. Will follow with echocardiogram near future. Further treatment based on the finding of the echocardiogram. Will follow up in the clinic in 7-10 days after echocardiogram. Thank you for allowing me to partake in her care Time Spent With Patient Time: Total time spent is greater than 50% in coordination of care (as documented) at patient's floor/unit and/or counseling patient: Progress Note: Quality Stroke Does the patient have a stroke diagnosis?: No Procedures Date of Service Date of Service: 11/18/21
[2021-11-18 15:22] VITALS: BP 101/56; PULSE 95; RESP 14; TEMP 36.9; O2SAT 95
--- NOTE | 2021-11-18 16:02 | PC.NURSE ---
Pt alert and oriented x3. Denies pain but c/O SOB even with minimal exertion. Pt ambulated and she became tachycardic with HR in the 110s. She also desattesd to the low 80s. Pt was put back on 1L O2 via NC. She is still very weak.
[2021-11-18] MEDS: ALPRAZolam 0.25 MG TABLET PO (19:44)
[2021-11-18] MEDS: Latanoprost 0.005 % Ophth Sol 2.5 ML DROPS 1 DROP EYE-BOTH (19:44)
[2021-11-18 23:17] VITALS: BP 97/55; PULSE 88; RESP 14; TEMP 36.3; O2SAT 100
[2021-11-19 05:36] VITALS: BMI 24.1
[2021-11-19 06:55] LABS: B Type Natriuretic Peptide 286 pg/mL (<100)
[2021-11-19 07:22] VITALS: BP 106/63; PULSE 94; RESP 16; TEMP 36.6; O2SAT 95
[2021-11-19 08:38] LABS: Anion Gap 11 (12-20); Blood Urea Nitrogen 18 mg/dL (9-16); Calcium 8.9 mg/dL (8.4-10.2); Carbon Dioxide 42 mmol/L (22-29); Chloride 92 mmol/L (96-108); Creatinine Clr Calc Pharmacy 65.1; Estimated Glomerular Filt Rate > 60; Glucose Random 89 mg/dL (60-115); Potassium 3.9 mmol/L (3.3-5.1); Sodium 141 mmol/L (135-145)
--- NOTE | 2021-11-19 10:09 | HO.PM.IMPN ---
Subjective Subjective Date of Service: 11/19/21 Interval History: F/u heart failure exacerbation to due PAF Interval history: no shortness of breath, feels better, HR goes up with activity, Review of Systems no sob +leg edam no fever Physical Exam Vital Signs: Vital Signs: Last Vital Signs Temp 97.9 F 11/19/21 07:22 Pulse 94 11/19/21 07:22 Resp 16 11/19/21 07:22 BP 106/63 11/19/21 07:22 Pulse Ox 95 11/19/21 07:22 O2 Del Method 11/19/21 07:22 O2 Flow Rate 2.5 11/19/21 07:22 BMI result Body Mass Index 24.1 Const: Other: General: AO X 3, no acute distress Resp: basal rales, no resp distress CVS: S1,S2, iregular, 1+pedal edema GI: +BS, NT, no distention Skin: No rash Neuro: motor grossly intact Psych: appropriate affect Objective Data Active Medications Alprazolam (Alprazolam 0.25 Mg Tablet) 0.25 mg PO BEDTIME [facility] Last Admin: 11/18/21 19:44 Dose: 0.25 mg Documented By: ISMA Apixaban (Apixaban 5 Mg Tablet) 5 mg PO BID [facility] Last Admin: 11/18/21 19:44 Dose: 5 mg Documented By: ISMA Digoxin (Digoxin 0.125 Mg Tablet) 0.125 mg PO DAILY [facility] Last Admin: 11/18/21 08:33 Dose: 0.125 mg Documented By: RANDALL Docusate Sodium (Docusate Sodium 100 Mg Capsule) 100 mg PO BID [facility] Last Admin: 11/18/21 19:45 Dose: 100 mg Documented By: ISMA Dorzolamide/Timolol (Dorzolamide/Timolo 2.23%/0.68% 10 Ml Drbtl) 1 drop EYE-BOTH BID [facility] Last Admin: 11/18/21 20:15 Dose: 1 drop Documented By: AMIRA Empagliflozin (Empagliflozin 10 Mg Tablet) 10 mg PO DAILY [facility] Last Admin: 11/18/21 08:34 Dose: 10 mg Documented By: RANDALL Furosemide (Furosemide 40 Mg Tablet) 40 mg PO DAILY [facility]; Protocol Latanoprost (Latanoprost 0.005 % Ophth Francia 2.5 Ml Drops) 1 drop EYE-BOTH BEDTIME [facility] Last Admin: 11/18/21 19:44 Dose: 1 drop Documented By: ISMA Metoprolol Tartrate (Metoprolol Tartrate 50 Mg Tablet) 50 mg PO BID [facility]; Protocol Last Admin: 11/18/21 19:44 Dose: 50 mg Documented By: ISMA Pharmacy Consult (Consult Rx Perform Med Rec) 1 each MISCELLANE ONCE PRN PRN Reason: Consult order Sodium Chloride (0.9 % Sodium Chloride Flush 3 Ml Syringe) 3 ml IVFLUSH QSHIFT [facility] Last Admin: 11/18/21 19:55 Dose: 3 ml Documented By: ISMA Sodium Chloride (Sodium Chloride 0.65 % Nasal 44 Ml Sprbtl) 1 spray NOSTRIL-B Q1H PRN PRN Reason: nasal irritation/dryness Spironolactone (Spironolactone 25 Mg Tablet) 12.5 mg PO DAILY [facility]; Protocol Last Admin: 11/18/21 08:33 Dose: 12.5 mg Documented By: RANDALL Labs CBC & Chem 7: 11/15/21 12:23 11/19/21 07:36 Labs: Laboratory Results - last 24 hr 11/19/21 11/19/21 06:06 07:36 Anion Gap 11 L Estim Creat Clear Calc 65.1 Estimated GFR > 60 Random Glucose 89 Calcium 8.9 B-Natriuretic Peptide 286 H Assessment and Plan (1) Acute heart failure: Status: Acute (2) Acute respiratory failure with hypoxia: Status: Acute (3) PAF (paroxysmal atrial fibrillation): Status: Acute (4) Paroxysmal atrial flutter: Status: Acute Plan 71 year old woman with medical history significant for cad with history of nstemi, paroxysmal atrial fibrillation and flutter, marfanoid habitus, myxonatous mitral valve, and anxiety presented to the hospital for evaluation of one month of worsening BERGER, fatigue, and palpitations consistent with acute exacerbation of CHF with uncontrolled recurrent atrial flutter. 1-acute on chronic congestive heart failure with preserved EF (HFpEF) secondary to uncontrolled atrial flutter--clinically improving, thus far neg 2.9 L - change to PO Lasix 40 daily - continue Continue aldactone 12.5mg and jardiance 10mg . Monitor BMP -BNP trending down. Daily BNP -strict I&O and daily weights. -low-sodium cardiac diet with fluid restrictions to 1L 2-acute respiratory failure with hypoxia secondary to above -Continue with 3L humidified oxygen. Titrate as tolerated -Removed oxygen on exam without evidence of distress. Desat to 87% on RA. -Consider home O2 eval on discharge 3-paroxysmal atrial fibrillation/flutter- uncontrolled -previously on Multaq - Continue eliquis 5mg BID. Monitor for epistaxis and continue humidified oxygen. . - Per cardiology, if adequately anticoagulation tolerated, will proceed with MURALI and cardioversion as outpatient -continue metoprolol 50 mg twice daily.? 4-CAD -history NSTEMI around 2016, intolerant to statins -No anginal chest pain 4- Anxiety -Continue home alprazolam 0.25 at bedtime 5. Metabolic alkalosis d/t lasix--diamox DVT prophylaxis- eliquis Inpatient need: Mangement of heart failure, has been on IV diuretic and changing to oral diuretic and monitor effect and if beeter by tomorrow DC PT to reassess in AM for home vs rehab Quality Stroke Does the patient have a stroke diagnosis?: No VTE Prior VTE?: No VTE Risk Level:: Medical - moderate - high VTE Device Contraindication: Treatment Not Indicated VTE Drug Contraindication: N/A - Med Ordered
[2021-11-19] MEDS: Metoprolol Tartrate 50 MG TABLET PO ×3 (10:37→21:41)
[2021-11-19] MEDS: Empagliflozin 10 MG TABLET PO (10:38)
[2021-11-19] MEDS: Apixaban 5 MG TABLET PO ×2 (10:38→21:41)
[2021-11-19] MEDS: Digoxin 0.125 MG TABLET PO (10:39)
[2021-11-19] MEDS: Dorzolamide/Timolo 2.23%/0.68% 10 ML DRBTL 1 DROP EYE-BOTH ×2 (10:39→21:41)
[2021-11-19] MEDS: Furosemide 40 MG TABLET PO (10:39)
[2021-11-19] MEDS: Spironolactone 25 MG TABLET 12.5 MG PO (10:39)
[2021-11-19] MEDS: 0.9 % Sodium Chloride Flush 3 ML SYRINGE IVFLUSH ×3 (10:40→21:41)
[2021-11-19] MEDS: acetaZOLAMIDE 250 MG TABLET PO (10:49)
[2021-11-19 11:05] VITALS: BP 103/56; PULSE 92; RESP 17; TEMP 36.9; O2SAT 93
--- NOTE | 2021-11-19 11:36 | PM.PNCARD ---
Subjective Subjective Date of Service: 11/19/21 Principal diagnosis: Aflutter, acute HF Interval history: Patient complaining of slightly fast heart rate. Noted to be in atrial flutter/tachycardia with rapid ventricular response. Blood pressure is on the softer side. Her renal blood work suggest contraction alkalosis and a BNP slightly elevated. Still requiring oxygen supplementation. Review of Systems Constitutional: Reports weakness Eyes: Reports no additional eye complaints Cardiovascular: Denies chest pain, Reports rapid heart rate, Denies leg edema, Denies lightheadedness and Reports dyspnea on exertion Respiratory: Reports no additional respiratory complaints and Reports dyspnea on exertion Gastrointestinal: Reports no additional gastrointestinal complaints Musculoskeletal: Reports no additional musculoskeletal complaints Skin/Breast: Reports system reviewed and no additional complaints, except as docu Reports system reviewed and no additional complaints, except as documented and Reports weakness Physical Exam Vital Signs: Last Vital Signs Temp 98.5 F 11/19/21 11:05 Pulse 92 11/19/21 11:05 Resp 17 11/19/21 11:05 BP 103/56 L 11/19/21 11:05 Pulse Ox 93 11/19/21 11:05 O2 Del Method 11/19/21 11:05 O2 Flow Rate 2.5 11/19/21 11:05 BMI result Body Mass Index 24.1 Const General: cooperative, comfortable and no acute distress Neck Neck: Yes normal visual inspection and Yes no JVD Resp Effort & Inspection: normal respiratory effort Auscultation: clear to auscultation bilaterally, no crackles, no rales, no rhonchi and no wheezes Cardio Other: heart tones heard best posteriorly Jugular venous distension: no JVD Rate: regular rate Rhythm: abnormal rhythm Heart sounds: S1 normal heart sound present, S2 normal heart sound present, no gallops, Murmur heart sound present and no rubs Peripheral pulses: Peripheral pulses 2+ throughout GI Inspection: Yes normal to inspection Extrem General: Yes normal to inspection, No no pedal edema and No calf tenderness Psych Appearance: grossly normal Mental Status: mental status grossly normal Speech and movement: Normal speech and movement present Objective Labs and Meds Result diagrams: 11/15/21 12:23 11/19/21 07:36 Lab results: Laboratory Results - last 24 hr 11/19/21 11/19/21 06:06 07:36 Sodium 141 Potassium 3.9 Chloride 92 L Carbon Dioxide 42 H* Anion Gap 11 L BUN 18 H Creatinine 0.72 Estim Creat Clear Calc 65.1 Estimated GFR > 60 Random Glucose 89 Calcium 8.9 B-Natriuretic Peptide 286 H Progress Note: A&P Assessment and plan (1) Acute respiratory failure with hypoxia: Status: Acute Assessment and Plan: Persistent hypoxemia with level suggesting contraction alkalosis with slightly elevated BNP. Clinically she does not appear to be significantly fluid overloaded at this point time. Suggest chest CT to assess for any pulmonary issues. Consider pulmonary consultation following that. Obtain an ABG. Also could be related to worsening mitral regurgitation which could be sudden-onset in patients with mitral valve prolapse. Would suggest the repeat transthoracic echocardiogram tomorrow to assess for the same. Lower Lasix to 20 mg daily. Continue spironolactone (2) Atrial tachycardia: Status: Acute Assessment and Plan: Atrial tachycardia with rapid ventricular response. Could be related to heart failure syndrome but most likely related to withdrawal of Multaq. Increase metoprolol to 50 mg daily weight, closely follow up blood pressure. Will also give couple of doses IV digoxin. Echocardiogram as above. She is tolerating Eliquis therapy for now. May require MURALI guided cardioversion sooner rather than later. Will continue to follow with you. Time Spent With Patient Time: Total time spent is greater than 50% in coordination of care (as documented) at patient's floor/unit and/or counseling patient: Progress Note: Quality Stroke Does the patient have a stroke diagnosis?: No Procedures Date of Service Date of Service: 11/19/21
[2021-11-19] MEDS: Digoxin 0.5 MG/2 ML AMPUL 0.125 MG IVPUSH ×2 (13:15→16:43)
[2021-11-19] MEDS: iohexoL 350 MG/ML 100 ML INFUS..BTL IV (15:22)
[2021-11-19 15:48] VITALS: BP 90/54; PULSE 60; RESP 14; TEMP 36.8; O2SAT 98
[2021-11-19 17:23] LABS: ABG Refer to POC result
[2021-11-19 17:23] LABS: ABG Base Excess 9.4 mmol/L; ABG HCO3 36 mmol/L (22-26); ABG pCO2 57 mmHg (32-45); ABG pO2 111 mmHg (83-108)
[2021-11-19 21:20] VITALS: BP 95/58; PULSE 90; RESP 18; O2SAT 95
[2021-11-19] MEDS: ALPRAZolam 0.25 MG TABLET PO (21:41)
[2021-11-19] MEDS: Latanoprost 0.005 % Ophth Sol 2.5 ML DROPS 1 DROP EYE-BOTH (21:42)
[2021-11-19 23:52] VITALS: BP 112/57; PULSE 74; RESP 18; TEMP 37.1; O2SAT 98
[2021-11-20] VITALS (9 sets, daily range): BP systolic 87–111; BP diastolic 47–63; PULSE 63–92; RESP 14–20; TEMP 36–37.1; O2SAT 95–96; BMI 23.4
--- NOTE | 2021-11-20 07:00 | CA_ITS ---
Transthoracic Echocardiogram Patient (Last, First, Middle): Chica Douglas A Gender: Female Date of : 1950 Age: 71 Procedure Date: 11/20/2021 Procedure Type: Transthoracic Echocardiogram Location: [facility] [place] Height: 167.64 cm Weight: 65.77 kg BSA: 1.74 m2 Heart Rate: bpm BP: 112 / 57 mmHg Improvement Coordinator: KYE Referring MD: Jim Elam MD Symptoms: chf, afib Study Quality: Technically Difficult ECG Rhythm: Atrial flutter or tachycardia Conclusions: - Markedly limited image quality due to body habitus. - The left ventricular systolic function is normal. The visually estimated ejection fraction is between 60-65%. - The mitral valve appears myxomatous. There is mild mitral valve regurgitation. Unable to assess any degree of prolapse. Findings Procedure Information Contrast agent, definity, is being given per protocol without apparent complications. Left Ventricle Normal left ventricular cavity size. There is normal left ventricular wall thickness. The left ventricular systolic function is normal. The visually estimated ejection fraction is between 60-65%. Regional wall motion abnormalities can not be excluded due to suboptimal endocardial definition. Diastolic function is indeterminate on the basis of available data. Right Ventricle Normal right ventricular cavity size and systolic function. Atria The right atrium is normal in size. Aortic Valve The aortic valve was not well visualized. There is no aortic valve stenosis. There is mild aortic valve regurgitation. Mitral Valve The mitral valve was not well visualized. The mitral valve appears myxomatous. There is mild mitral valve regurgitation. There is no mitral valve stenosis. Pulmonic Valve The pulmonic valve was not well visualized. Tricuspid Valve There is trace tricuspid valve regurgitation. There is no evidence of pulmonary hypertension. Great Vessels The aortic annulus is normal in size. Venous The inferior vena cava was not well visualized. Pericardium/Pleural There is no evidence of pericardial effusion. Prior Study Comparison No significant change compared to prior study dated: 09/19/2021. Measurements 2D Linear Measurements Ao Root: 3.60 2.1-3.5 cm LVOT Diam: 2.20 3.0+(-)1.3 cm 2D Systolic Function EF 4C: 74.70 >55% EF 2C: 77.30 >55% EF BiP: 76.90 >55% Mitral Valve MV VTI: 0.16 MV Pk [place]: 0.97 MV Mn [place]: 0.58 MV Pk Grad: 4.00 MV Mn Grad: 2.00 MV Pk E: 0.82 MV Decel Time: 149.00 E'Lateral: 11.60 E'Medial: 6.53 E/E' Med: 12.60 E/E' Lat: 7.10 PHT: 44.00 MVA PHT: 5.00 MVA Continuity: 2.98 Decel [place]: 5.50 Aortic Valve AoV Pk [place]: 1.15 AoV Mn [place]: 0.71 AoV VTI: 0.24 AoV Pk Grad: 5.00 Aov Mn Grad: 3.00 JOE Cont.VTI: 2.00 AI Pk [place]: 3.24 AI [place]: 1.33 LVOT LVOT Pk [place]: 0.71 LVOT Mn [place]: 0.46 LVOT VTI: 0.13 LVOT Pk Grad: 2.00 LVOT Mn Grad: 1.00 LVOT Diam: 2.20 LVOT Area: 3.80 Diastolic Function MV Pk E: 0.82 E'Medial: 6.53 E/E' Med: 12.60 E' Laterial: 11.60 E/E' Lat: 7.10 Right Ventricle TAPSE (mm): 19.00 Tricuspid Valve TR Pk [place]: 2.40 TR Pk Grad: 23.00 Great Vessels Aorta Ao Root-2D: 3.60 2.0-3.7 cm Pulmonary Valve PV Pk [place]: 0.69 Peak PV Grad: 2.00 Updated in Other Vendor System with Status of Final Jarett Mendez MD electronically signed on 11/20/2021 4:36:01 PM with status of Final
[2021-11-20 07:08] LABS: Anion Gap 13 (12-20); Blood Urea Nitrogen 19 mg/dL (9-16); Calcium 8.5 mg/dL (8.4-10.2); Carbon Dioxide 36 mmol/L (22-29); Chloride 94 mmol/L (96-108); Creatinine Clr Calc Pharmacy 65.1; Estimated Glomerular Filt Rate > 60; Glucose Random 90 mg/dL (60-115); Potassium 3.2 mmol/L (3.3-5.1); Sodium 140 mmol/L (135-145)
[2021-11-20] MEDS: Potassium Chloride ER 20 MEQ TAB.ER.PRT 40 MEQ PO (09:12)
[2021-11-20] MEDS: 0.9 % Sodium Chloride Flush 3 ML SYRINGE IVFLUSH ×2 (09:13→17:10)
[2021-11-20] MEDS: Digoxin 0.125 MG TABLET PO (09:15)
[2021-11-20] MEDS: Metoprolol Tartrate 50 MG TABLET PO ×2 (09:16→17:14)
[2021-11-20] MEDS: Apixaban 5 MG TABLET PO ×2 (09:16→21:31)
[2021-11-20] MEDS: Empagliflozin 10 MG TABLET PO (09:16)
[2021-11-20] MEDS: Dorzolamide/Timolo 2.23%/0.68% 10 ML DRBTL 1 DROP EYE-BOTH ×2 (09:24→21:31)
--- NOTE | 2021-11-20 09:56 | PM.PNCARD ---
Subjective Subjective Date of Service: 11/20/21 Principal diagnosis: Aflutter, acute HF Interval history: She states she is feeling better but since admission, has not really move much. Generally in bed. Review of Systems Review of Systems Yes all other systems are reviewed and are negative Constitutional: Reports as per HPI Eyes: Reports as per HPI Reports as per HPI Cardiovascular: Reports as per HPI, Denies acrocyanosis, Denies cool extremities, Denies chest pain, Denies leg edema, Denies lightheadedness, Denies palpitations and Denies dyspnea Respiratory: Reports as per HPI, Reports no additional respiratory complaints and Denies dyspnea Gastrointestinal: Reports as per HPI and Reports no additional gastrointestinal complaints Genitourinary: Reports as per HPI Musculoskeletal: Reports no additional musculoskeletal complaints and Reports as per HPI Skin/Breast: Reports system reviewed and no additional complaints, except as docu Reports system reviewed and no additional complaints, except as documented and Reports as per HPI Psychiatric: Reports no additional psychiatric complaints and Reports as per HPI Endocrine: Reports no additional endocrine complaints, Reports as per HPI and Denies palpitations Hematologic/Lymphatic: Reports no additional hematologic/lymphatic complaints and Reports as per HPI Allergic/Immunologic: Reports no additional allergic/immunologic complaints and Reports as per HPI Physical Exam Vital Signs: Last Vital Signs Temp 96.8 F 11/20/21 07:30 Pulse 63 11/20/21 07:30 Resp 20 11/20/21 07:30 BP 99/47 L 11/20/21 07:30 Pulse Ox 95 11/20/21 07:30 O2 Del Method 11/20/21 07:30 O2 Flow Rate 2.5 11/20/21 07:30 BMI result Body Mass Index 23.4 Const General: comfortable and no acute distress Orientation/consciousness: patient oriented x3 HEENT Other: Unremarkable Head: Yes normal to inspection Neck Neck: Yes normal visual inspection Chest Chest palpation & inspection: normal inspection of the chest Resp Other: few basal crackles Cardio Palpation: normal PMI Heart sounds: S1 normal heart sound present, S2 normal heart sound present, no gallops, Murmur heart sound present systolic late and other (left side, posteriorly near scapula) and no rubs GI Palpation (GI): Soft to palpation Back/Spine/Pelvis Other: unremarkable Skin General skin exam: no rashes or lesions noted Neuro General: patient oriented x3 Extrem General: Yes normal to inspection Psych Mental Status: mental status grossly normal Objective Labs and Meds Result diagrams: 11/15/21 12:23 11/20/21 06:23 Lab results: Laboratory Results - last 24 hr 11/19/21 11/20/21 17:17 06:23 O2 Saturation 99.0 ABG pH at Pt Temp 7.40 ABG pCO2 at Pt Temp 57 H ABG pO2 at Pt Temp 111 H ABG HCO3 36 H ABG Base Excess (Actual) 9.4 Sodium 140 Potassium 3.2 L Chloride 94 L Carbon Dioxide 36 H Anion Gap 13 BUN 19 H Creatinine 0.72 Estim Creat Clear Calc 65.1 Estimated GFR > 60 Random Glucose 90 Calcium 8.5 Imaging Radiologist's impression: Impressions Chest CTA 11/19/21 15:23 IMPRESSION: No evidence for pulmonary emboli. Prominent pectus excavatum deformity VTE: Negative Progress Note: A&P Assessment and plan (1) Acute heart failure: Status: Acute Assessment and Plan: Clinically, has few crackles in the bases but also be from atelectasis. No significant peripheral edema. On diuretics. We can wean oxygen and see how she does. Ambulate. (2) Atrial tachycardia: Status: Acute Assessment and Plan: Atrial tachycardia versus atypical atrial flutter on telemetry. Rate seems much better control. Ventricular rate in the 70s. Currently on beta-blockers and digoxin. Can ambulate and monitor the heart rate. Unable to cardiovert due to significant recent nose bleeds and on less than optimal anticoagulation. Now on full-dose anticoagulation again. Eventually, could consider cardioversion as outpatient after ENT issues addressed. (3) Myxomatous mitral valve: Status: Acute Assessment and Plan: On the last echocardiogram, reported to have myxomatous mitral valve and mild mitral regurgitation. We will repeat to see if there is any significant progression. 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 Plan Discussed with Dr. Elam. Time Spent With Patient Time: Total time spent is greater than 50% in coordination of care (as documented) at patient's floor/unit and/or counseling patient: 35 minutes. Progress Note: Quality Stroke Does the patient have a stroke diagnosis?: No Procedures Date of Service Date of Service: 11/20/21
--- NOTE | 2021-11-20 10:35 | PC.NURSE ---
Per Dr. Mendez, nursing to try and wean O2 and ambulate patient. Awaiting ambulation at this time, but tried to wean to room air for ~30 minutes and patient < 93% SpO2 (patient's goal per Dr. Elam) so placed on 2L O2 again.
--- NOTE | 2021-11-20 11:13 | HO.PM.IMPN ---
Subjective Subjective Date of Service: 11/20/21 Interval History: F/u heart failure exacerbation to due PAF Interval history: shortness of breath is better, BP on low side Review of Systems no sob +leg edam no fever Physical Exam Vital Signs: Vital Signs: Last Vital Signs Temp 96.8 F 11/20/21 07:30 Pulse 63 11/20/21 07:30 Resp 20 11/20/21 07:30 BP 99/47 L 11/20/21 07:30 Pulse Ox 95 11/20/21 07:30 O2 Del Method 11/20/21 07:30 O2 Flow Rate 2.5 11/20/21 07:30 BMI result Body Mass Index 23.4 Const: Other: General: AO X 3, no acute distress Resp: basal rales, no resp distress CVS: S1,S2, iregular, nopedal edema GI: +BS, NT, no distention Skin: No rash Neuro: motor grossly intact Psych: appropriate affect Objective Data Active Medications Alprazolam (Alprazolam 0.25 Mg Tablet) 0.25 mg PO BEDTIME [facility] Last Admin: 11/19/21 21:41 Dose: 0.25 mg Documented By: ELLEN Apixaban (Apixaban 5 Mg Tablet) 5 mg PO BID [facility] Last Admin: 11/20/21 09:16 Dose: 5 mg Documented By: SHANNA Digoxin (Digoxin 0.125 Mg Tablet) 0.125 mg PO DAILY [facility] Last Admin: 11/20/21 09:15 Dose: 0.125 mg Documented By: SHANNA Docusate Sodium (Docusate Sodium 100 Mg Capsule) 100 mg PO BID [facility] Last Admin: 11/19/21 22:36 Dose: Not Given Documented By: ELLEN Non-Admin Reason: Patient Refused Dorzolamide/Timolol (Dorzolamide/Timolo 2.23%/0.68% 10 Ml Drbtl) 1 drop EYE-BOTH BID [facility] Last Admin: 11/20/21 09:24 Dose: 1 drop Documented By: SHANNA Empagliflozin (Empagliflozin 10 Mg Tablet) 10 mg PO DAILY [facility] Last Admin: 11/20/21 09:16 Dose: 10 mg Documented By: SHANNA Furosemide (Furosemide 40 Mg Tablet) 40 mg PO DAILY [facility]; Protocol Last Admin: 11/19/21 10:39 Dose: 40 mg Documented By: MARISELA Latanoprost (Latanoprost 0.005 % Ophth Francia 2.5 Ml Drops) 1 drop EYE-BOTH BEDTIME [facility] Last Admin: 11/19/21 21:42 Dose: 1 drop Documented By: ELLEN Metoprolol Tartrate (Metoprolol Tartrate 50 Mg Tablet) 50 mg PO TID [facility]; Protocol Last Admin: 11/20/21 09:16 Dose: 50 mg Documented By: SHANNA Pharmacy Consult (Consult Rx Perform Med Rec) 1 each MISCELLANE ONCE PRN PRN Reason: Consult order Sodium Chloride (0.9 % Sodium Chloride Flush 3 Ml Syringe) 3 ml IVFLUSH QSHIFT [facility] Last Admin: 11/20/21 09:13 Dose: 3 ml Documented By: SHANNA Sodium Chloride (Sodium Chloride 0.65 % Nasal 44 Ml Sprbtl) 1 spray NOSTRIL-B Q1H PRN PRN Reason: nasal irritation/dryness Spironolactone (Spironolactone 25 Mg Tablet) 12.5 mg PO DAILY [facility]; Protocol Last Admin: 11/19/21 10:39 Dose: 12.5 mg Documented By: MARISELA Labs CBC & Chem 7: 11/15/21 12:23 11/20/21 06:23 Labs: Laboratory Results - last 24 hr 11/19/21 11/20/21 17:17 06:23 O2 Saturation 99.0 ABG pH at Pt Temp 7.40 ABG pCO2 at Pt Temp 57 H ABG pO2 at Pt Temp 111 H ABG HCO3 36 H ABG Base Excess (Actual) 9.4 Anion Gap 13 Estim Creat Clear Calc 65.1 Estimated GFR > 60 Random Glucose 90 Calcium 8.5 Assessment and Plan (1) Acute heart failure: Status: Acute (2) Acute respiratory failure with hypoxia: Status: Acute (3) PAF (paroxysmal atrial fibrillation): Status: Acute (4) Paroxysmal atrial flutter: Status: Acute Plan 71 year old woman with medical history significant for cad with history of nstemi, paroxysmal atrial fibrillation and flutter, marfanoid habitus, myxonatous mitral valve, and anxiety presented to the hospital for evaluation of one month of worsening BERGER, fatigue, and palpitations consistent with acute exacerbation of CHF with uncontrolled recurrent atrial flutter. 1-acute on chronic congestive heart failure with preserved EF (HFpEF) secondary to uncontrolled atrial flutter--clinically improving, thus far neg 2.9 L - changed to PO Lasix 40 daily - continue Continue aldactone 12.5mg and jardiance 10mg . Monitor BMP -BNP trending down. -strict I&O and daily weights. -low-sodium cardiac diet with fluid restrictions to 1L 2-acute respiratory failure with hypoxia secondary to above, negtaive PE by CT -Continue with 3L humidified oxygen. Titrate as tolerated -signficant hypoxia without O2, home 2 assessment 3-paroxysmal atrial fibrillation/flutter--now better controlled -previously on Multaq - Continue eliquis 5mg BID. Monitor for epistaxis and continue humidified oxygen. . - Per cardiology, if adequately anticoagulation tolerated, will proceed with MURALI and cardioversion as outpatient -continue metoprolol 50 mg twice daily, continue Dig 4-CAD -history NSTEMI around 2016, intolerant to statins -No anginal chest pain 4- Anxiety -Continue home alprazolam 0.25 at bedtime 5. Metabolic alkalosis d/t lasix--improved with Diamox 6. Hypokalemia--oral replacement DVT prophylaxis- eliquis Inpatient need: ongoing management for heart failure, unexplained hypoxia withot O2, AFIB meds being adjusted PT is recommending STR Quality Stroke Does the patient have a stroke diagnosis?: No VTE Prior VTE?: No VTE Risk Level:: Medical - moderate - high VTE Device Contraindication: Treatment Not Indicated VTE Drug Contraindication: N/A - Med Ordered
[2021-11-20] MEDS: Spironolactone 25 MG TABLET 12.5 MG PO (14:30)
[2021-11-20] MEDS: Furosemide 40 MG TABLET PO (14:30)
--- NOTE | 2021-11-20 20:31 | PC.NURSE ---
P patient reported episode of spinning dizziness which lasted 30 sec. BP 99/[address] Blank notified of the above,orthostatic BP was checked and reported to dr. Blank E pt reports no dizziness at present
[2021-11-20] MEDS: Docusate Sodium 100 MG CAPSULE PO (21:31)
[2021-11-20] MEDS: Latanoprost 0.005 % Ophth Sol 2.5 ML DROPS 1 DROP EYE-BOTH (21:31)
[2021-11-21] MEDS: 0.9 % Sodium Chloride Flush 3 ML SYRINGE IVFLUSH ×2 (00:23→08:02)
[2021-11-21 04:08] VITALS: BP 100/60; PULSE 88; RESP 16; TEMP 36.7; O2SAT 94
[2021-11-21 06:00] VITALS: BMI 24.2
[2021-11-21 07:28] VITALS: BP 114/59; PULSE 67; RESP 17; TEMP 36.3; O2SAT 91
[2021-11-21] MEDS: Apixaban 5 MG TABLET PO (08:01)
[2021-11-21] MEDS: Furosemide 40 MG TABLET PO (08:01)
[2021-11-21] MEDS: Metoprolol Tartrate 50 MG TABLET PO (08:01)
[2021-11-21] MEDS: Spironolactone 25 MG TABLET 12.5 MG PO (08:01)
[2021-11-21] MEDS: Digoxin 0.125 MG TABLET PO (08:01)
[2021-11-21] MEDS: Empagliflozin 10 MG TABLET PO (08:02)
[2021-11-21] MEDS: Dorzolamide/Timolo 2.23%/0.68% 10 ML DRBTL 1 DROP EYE-BOTH (08:04)
--- NOTE | 2021-11-21 09:26 | P.PNCA_ITS ---
Subjective Subjective Date of Service: 11/21/21 Principal diagnosis: Aflutter, acute HF Interval history: She states that she is feeling good. Shortness of breath is almost back to baseline. Review of Systems Review of Systems Yes all other systems are reviewed and are negative Constitutional: Reports as per HPI Eyes: Reports as per HPI Reports as per HPI Cardiovascular: Reports as per HPI, Denies acrocyanosis, Denies cool ex tremities, Denies chest pain, Denies leg edema, Denies lightheadedness, Denies palpitations and Denies dyspnea Respiratory: Reports as per HPI, Reports no additional respiratory complaints and Denies dyspnea Gastrointestinal: Reports as per HPI and Reports no additional gastrointestinal complaints Genitourinary: Reports as per HPI Musculoskeletal: Reports no additional musculoskeletal complaints and Reports as per HPI Skin/Breast: Reports system reviewed and no additional complaints, except as docu Reports system reviewed and no additional complaints, except as documented and Reports as per HPI Psychiatric: Reports no additional psychiatric complaints and Reports as per HPI Endocrine: Reports no additional endocrine complaints, Reports as per HPI and Denies palpitations Hematologic/Lymphatic: Reports no additional hematologic/lymphatic complaints and Reports as per HPI Allergic/Immunologic: Reports no additional allergic/immunologic complaints and Reports as per HPI Physical Exam Vital Signs: Last Vital Signs Temp 97.4 F 11/21/21 07:28 Pulse 67 11/21/21 07:28 Resp 17 11/21/21 07:28 BP 114/59 L 11/21/21 07:28 Pulse Ox 91 L 11/21/21 07:28 O2 Del Method 11/21/21 07:28 O2 Flow Rate 2.5 11/21/21 07:28 BMI result Body Mass Index 24.2 Const General: comfortable and no acute distress Orientation/consciousness: patient oriented x3 HEENT Other: Unremarkable Head: Yes normal to inspection Neck Neck: Yes normal visual inspection Chest Chest palpation & inspection: normal inspection of the chest Resp Auscultation: clear to auscultation bilaterally Cardio Palpation: normal PMI Heart sounds: S1 normal heart sound present, S2 normal heart sound present, no gallops, Murmur heart sound present systolic late and other (left side, posteriorly near scapula) and no rubs GI Palpation (GI): Soft to palpation Back/Spine/Pelvis Other: unremarkable Skin General skin exam: no rashes or lesions noted Neuro General: patient oriented x3 Extrem General: Yes normal to inspection Psych Mental Status: mental status grossly normal Objective Labs and Meds Result diagrams: 11/15/21 12:23 11/20/21 06:23 Progress Note: A&P Assessment and plan (1) Acute heart failure: Status: Acute Assessment and Plan: Seems improved. No significant volume overload on exam. Continue diuretics. (2) Atrial tachycardia: Status: Acute Assessment and Plan: Rate seems much better. On beta-blockers and digoxin. Due to recent nosebleeds, unable to cardiovert. Once she sees ENT and the nosebleeds are resolved, then we can consider outpatient cardioversion. Continue Eliquis. (3) Myxomatous mitral valve: Status: Acute Assessment and Plan: Echo image quality is suboptimal due to her body habitus but no significant regurgitation noted. Probably MURALI at some point. 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 Plan Had a long conversation with patient and explained in detail plan to her satisfaction. All questions answered in detail. Discussed with Dr. Elam. Time Spent With Patient Time: Total time spent is greater than 50% in coordination of care (as documented) at patient's floor/unit and/or counseling patient: 35min. Progress Note: Quality Stroke Does the patient have a stroke diagnosis?: No Procedures Date of Service Date of Service: 11/21/21
--- NOTE | 2021-11-21 09:45 | P.DS_ITS ---
DS: Providers Provider Date of Service: 11/21/21 Date of admission: 11/15/21 15:38 Primary care physician: Vlad Daugherty MD Consults: 11/15/21 14:04 Consult to Cardiology Stat Consulting Provider: Jarett Mendez Reason for consultation: Acute heart failure and hypoxia Has provider been notified: Yes 11/15/21 15:52 Consult to Cardiology Routine Consulting Provider: Ellis Huffman Reason for consultation: aflutter/chf Has provider been notified: No DS: Diagnosis Discharge Diagnosis (1) Acute heart failure: Status: Resolved (2) Atrial tachycardia: Status: Resolved (3) Myxomatous mitral valve: Status: Inactive (4) Marfanoid habitus: Status: Inactive DS: Summary Hospital Course Hospital Course: Chief Complaint: aflutter/chf 71 year old woman with medical history significant for cad with history of nstemi, paroxysmal atrial fibrillation and flutter, marfanoid habitus, myxonatous mitral valve, and anxiety presented to the hospital for evaluation of one month of worsening BERGER, fatigue, and palpitations.? She states that the fatigue and weakness has been so significant that she has difficulty with walking and becomes extremely short of breath on exertion.? She endorses orthopnea and has been sleeping upright in a chair.? There have also been short periods of epigastric and retrosternal nonradiating chest pain with some associated nausea but no vomiting.? Symptoms had been exertional but now also occur at rest.? There has also been increased and bilateral leg swelling.? Denies any diaphoretic episodes.? She does become short of breath with speech and occasionally coughs.? She is a patient of Dr. Mendez cardiology and seen earlier prior to presentation to the ED for evaluation of atrial flutter and acute heart failure exacerbation.? About 3 weeks ago had a Holter monitor placed for 3 days which showed atrial flutter.? He has had history of cardioversion with brief success but atrial fibrillation/flutter recurred.? Patient is now maintained on Multaq for rhythm as well as metoprolol which was recently increased to 50 mg twice d aily for rate control.? On lasix 40mg daily for diuresis but states she sometimes takes every other day due to polyuria. She is anticoagulated with Eliquis.? However she tells me that her Eliquis was reduced to a dose of 2.5 mg twice daily by PCP as she was experiencing recurring epistaxis with duration of 40-60 minutes each episode requiring multiple ER visits.? She states the nosebleeds have stopped since dose is reduced.? She does have upcoming appointment with ENT. On arrival to the ER patient was found to be hypoxic with oxygen saturation 77% and in respiratory distress.? Has been maintaining oxygen saturation >93% after being placed on 3 L supplemental oxygen via nasal cannula.? She denies any ongoing shortness of breath.? BNP mildly elevated at 454.? EKG earlier with Dr. Huffman did reveal atrial flutter.? EKG in the ED shows sinus tachycardia with rate of 103, age-indeterminate septal infarct and nonspecific ST/T-wave abnormality.? There is also new T-wave inversion evident in lateral leads.? Troponin 4.2.? Chest x-ray significant for cardiomegaly without pulmonary edema and question small right pleural effusion as well as chronic findings in the left lung. Last echocardiogram in 10/04 with normal systolic and diastolic function with EF 60-65%. Hospital course: Patient presented with shortness of breath, leg edema elevated BPN and was in florid CHF and in AFIB with RVR, she is know to have normal EF. She was admited for management of atrial fibrillation with a rapid ventricular response and decompensated heart failure with a preserved ejection fraction. 1-acute on chronic congestive heart failure with preserved EF (HFpEF) : exacerbation precipitated by o uncontrolled atrial flutter. She was diuresed with IV Lasix and that is now in negative fluid balance of fall 0. Her leg edema has resolved. She was seen by Cardiology who help with her management with recommendation for adding Aldactone 12.5 mg daily, Jardiance 10 mg daily. Her serial be an AP level has trended down. Patient remained hypoxic however and rely on oxygen to maintain her oxygen level above 90. She had further workup with CT angiogram to rule out pulmonary embolism. She should adhere to low-sodium diet, monitor her weight daily. 2. Peristent AFIB with RVR--She was previously on Multaq which doesn't seem effective, she was on Metoprolol 50 mg twice a day and has been and adjusted to 75 mg twice a day, and has been loaded with digoxin and on daily digoxin 0.125 mg daily, her heart rate is better controlled. She had been on anticoagulation with Eliquis but was on hold due to episode of nose bleed but has been restarted sucesfully, the overall goal is for her to cardioverted if she's remains stable on Eliquis without bleeding complication, this will be pursuit on outpatien bais.. Thus far has been on eliquis for 6 days without any bleeding complication. 3-Acute respiratory failure with hypoxia secondary to above, Heart failure and possible underlying restrictive lung disease from Prominent pectus excavatum, CT showed no PE Home O2 4-CAD -history NSTEMI around 2016, intolerant to statins -No anginal chest pain 5- Anxiety as before 5. Metabolic alkalosis d/t lasix--improved with Diamox 6. Hypokalemia-- resolved with oral replacement Time Spent with Patient Time attestation: Total time spent providing and/or coordinating discharge services: Discharge coordination time: Greater than 30 minutes Quality: Safe Use of Opioids Does Pt have an Active Cancer Diagnosis on the Problem List?: No Quality: Stroke Does the patient have a stroke diagnosis?: No Physical Exam Vital Signs: Vital Signs: Last Vital Signs Temp 97.4 F 11/21/21 07:28 Pulse 67 11/21/21 07:28 Resp 17 11/21/21 07:28 BP 114/59 L 11/21/21 07:28 Pulse Ox 91 L 11/21/21 07:28 O2 Del Method 11/21/21 07:28 O2 Flow Rate 2.5 11/21/21 07:28 BMI result Body Mass Index 24.2 General: AO X 3, no acute distress Resp: CTA bilateral CVS: S1,S2, ireg ireg, no leg edema I: +BS, NT, no distention Skin: No rash Neuro: motor grossly intact Psych: appropriate affect Discharge Plan Discharge Anticipated Discharge Date/Time: 11/21/21 09:59 Patient Disposition: Home Health Service Discharge Diagnosis: Acute hypoxic record respiratory failure, CHF exacerbation, AFib with RVR Referrals: [facility] [Other] - 1 Week (Home Oxygen supplies) [facility] [Outside] - 1 Week Vlad Daugherty MD [Primary Care Provider] - 1 Week Discharge Medications: Continued dorzolamide-timolol 22.3-6.8 mg/mL drops 1 drp ophthalmic (eye) BID furosemide 40 mg tablet 40 mg PO DAILY PRN (Reason: SWELLING) bimatoprost 0.01 % drops 1 drp ophthalmic (eye) BEDTIME alprazolam 0.25 mg tablet 0.25 mg PO BEDTIME Eliquis 5 mg tablet 2.5 mg PO BID Changed metoprolol tartrate 25 mg tablet 75 mg PO BID Qty: 60 0RF Discontinued Multaq 400 mg tablet 400 mg PO BID Qty: 180 3RF No Action digoxin 125 mcg (0.125 mg) tablet 125 mcg PO DAILY 30 Days Qty: 30 5RF Jardiance 10 mg tablet 10 mg PO DAILY 30 Days Qty: 30 5RF spironolactone 25 mg tablet 12.5 mg PO DAILY 30 Days Qty: 15 5RF Protocol: Hold for SBP< HOLD for SBP < : 90 Discharge Orders: Discharge Order (Routine); Ordered 11/21/21 Ordered By: Jim Elam Diet: Advance to usual diet Activity on Discharge: As tolerated Stand Alone Forms: Patient Portal Discharge page Care Plan Goals: full recovery from heart failure, control of atrial fibrillation and maintain oxygen level. Health Concerns: Acute hypoxic respiratory failure, congestive heart failure, atrial fibrillation Plan of Treatment: You were admitted for acute respiratory failure due to heart failure and uncontrolled atrial fibrilation, take metoprolol dose has been increased to 75 mg twice daily from 50 mg twice Daily take digoxin at 0.125 mg daily which is new take Aldactone 12.5 mg daily new take Jardiance 10 mg daily new follow-up with Dr. Mendez as recommended use oxygen as directed. Visiting nurse will be coming by the house to assess you. Follow-up with your primary care doctor within a week call for appointment. Follow up with Dr. Mendez Use oxygen as directed and follow up Assessment: as above Discharge Date/Time: 11/21/21 15:15
--- NOTE | 2021-11-21 10:12 | W.MHC.F2F ---
Service Date Service Date: 11/21/21 Encounter Date of encounter: 11/21/21 Encounter: for assessment of hear failure and afib Reasons for Services Signs and symptoms assessed: Heart failure and atrial fibrilation, acute on chronic respriatory failure Reason for [facility]: medication treatment and teach disease management Homebound: Leaving the home is medically contraindicated at this time without the asist of a device and/or another person due th the listed conditions above and below. Reason homebound: shortness of breath with minimal effort Homebound supporting statement: homebound due to heart failure causing shotness with minimal exertion and therefore needs the asistance of another pers Certification: Based on the above findings, I certify that this patient is confined to the home and needs intermittent [facility] care, physical therapy and/or speech therapy, or continues to need occupational therapy. The patient is under my care, and I have initiated the establishment of the plan of care. The patient will be followed by a physician who will periodically review the plan of care.
[2021-11-21 11:11] VITALS: BP 114/59; PULSE 67; O2SAT 91
[2021-11-21 11:13] VITALS: BP 97/51; PULSE 81; RESP 16; TEMP 37.1; O2SAT 95
[2021-11-21 11:21] LABS: Anion Gap 16 (12-20); Carbon Dioxide 33 mmol/L (22-29); Chloride 95 mmol/L (96-108); Potassium 3.4 mmol/L (3.3-5.1); Sodium 141 mmol/L (135-145)
[2021-11-21 12:55] VITALS: PULSE 118; PULSE 71; PULSE 94; O2SAT 88; O2SAT 95
--- NOTE | 2021-11-21 14:05 | MHC.CM.PN ---
IMM 11/21/21 Patient is discharged to home with [facility]. The patient has arranged for transportation home.
== END 2021-11-21 15:15 | disposition home health service (06) | DRG 291 ==
LOC: HO.ED 15:15 → HO.EDOVER 16:20 → HO.IMC 11-16 05:17
PROVIDERS: Physician Assistant; Admitting Provider Physician Assistant; Emergency Provider Emergency Medicine Emergency Medical Services; PCP Internal Medicine; Visit Provider Internal Medicine
DX: I11.0 Hypertensive heart disease with heart failure (principal); I50.23 Acute on chronic systolic (congestive) heart failure; J96.01 Acute respiratory failure with hypoxia; I48.92 Unspecified atrial flutter; E87.3 Alkalosis; I47.1 Supraventricular tachycardia; I48.19 Other persistent atrial fibrillation; I25.10 Atherosclerotic heart disease of native coronary artery without angina pectoris; F41.9 Anxiety disorder, unspecified; I34.1 Nonrheumatic mitral (valve) prolapse; I48.0 Paroxysmal atrial fibrillation; I25.2 Old myocardial infarction; Z20.822 Contact with and (suspected) exposure to COVID-19; Z91.013 Allergy to seafood; Z88.0 Allergy status to penicillin; Z88.1 Allergy status to other antibiotic agents; Z88.2 Allergy status to sulfonamides; Z88.8 Allergy status to other drugs, medicaments and biological substances; Z79.01 Long term (current) use of anticoagulants; Z79.899 Other long term (current) drug therapy
CPT/HCPCS: 36415; 36600; 71045; 71275; 80048; 80051; 80076; 81003; 82803; 83735; 83880; 84484; 85025; 85610; 85730; 87635; 93005; 93306; 97110; 97116; 97162; 99212; 99285; J1160; J1940; Q9957; Q9967

== ENCOUNTER 2021-12-06 11:30 | Outpatient (REF) | payer MEDICARE, SELFPAY ==
[2021-12-06 14:06] LABS: MANUAL DIFF FLAG NO
[2021-12-06 14:09] LABS: Appearance Urine Cloudy; Color Urine Yellow; Glucose Urine UA >=1000 mg/dL (Negative); Leukocyte Esterase Urine Small (1+) (Negative); Nitrite Urine Negative (Negative); Specific Gravity - Urine >= 1.030 (1.005-1.025); Urine Blood Negative (Negative); Urine Ketones Trace mg/dL (Negative); Urine Protein Negative (Neg-Trace)
[2021-12-06 14:12] LABS: Bacteria Urine Trace (None Seen); Hyaline Casts Urine 0-2 /LPF (0-2); UACC Culture Trigger YES; WBC Urine 21-50 /HPF (0-5)
[2021-12-06 14:21] LABS: Basophils Percent Auto 0.4 % (0-2); Eosinophils Absolute Auto 0.1 X10*3/uL (0.0-0.4); Eosinophils Percent Auto 1.1 % (0-4); Hematocrit 44.5 % (37.0-47.0); Hemoglobin 13.6 g/dl (12.0-16.0); Imm Gran Abs Auto 0.01 X10*3/uL (0.00-0.03); Imm Gran Pct Auto 0.2 % (0.0-0.4); Lymphocytes Absolute Auto 1.4 X10*3/uL (1.2-4.9); Lymphocytes Percent Auto 24.3 % (20-40); Mean Corpuscular HGB Conc 30.6 g/dl (31.0-35.0); Mean Corpuscular Hemoglobin 27.8 pg (27.0-33.0); Mean Corpuscular Volume 90.8 fL (80.0-98.0); Mean Platelet Volume 9.4 fL (9.4-12.3); Monocytes Absolute Auto 0.8 X10*3/uL (0.1-1.2); Monocytes Percent Auto 13.8 % (2-11); Neutrophils Absolute Auto 3.4 x10*3/uL (2.0-8.3); Neutrophils Percent Auto 60.2 % (45-73); Platelet Count 202 X10*3/uL (160-400); Red Cell Distribution Width 14.7 % (11.0-16.0); White Blood Count 5.7 X10*3/uL (4.8-10.8)
[2021-12-06 14:31] LABS: Alanine Aminotransferase 12 U/L (0-31); Albumin Level 3.9 g/dL (3.5-5.0); Alkaline Phosphatase 57 U/L (39-117); Anion Gap 14 (12-20); Aspartate Amino Transferase 13 U/L (5-31); Blood Urea Nitrogen 18 mg/dL (9-16); Carbon Dioxide 33 mmol/L (22-29); Chloride 98 mmol/L (96-108); Estimated Glomerular Filt Rate > 60; Glucose Random 80 mg/dL (60-115); Potassium 4.2 mmol/L (3.3-5.1); Sodium 141 mmol/L (135-145); Total Protein 6.7 g/dL (6.5-8.0)
[2021-12-06 15:26] LABS: Digoxin 0.6 ng/mL (0.8-2.0)
== END 2021-12-06 11:31 | disposition home or self-care (01) ==
LOC: HO.HMGCLDS 11:30
PROVIDERS: Internal Medicine; PCP Internal Medicine; Visit Provider Internal Medicine
DX: R30.0 Dysuria (principal); I48.19 Other persistent atrial fibrillation; I50.9 Heart failure, unspecified; Z79.899 Other long term (current) drug therapy
CPT/HCPCS: 36415; 80053; 80162; 81001; 85025; 87086

== ENCOUNTER 2021-12-11 15:18 | Outpatient (REF) | payer MEDICARE, SELFPAY ==
[2021-12-11 17:02] LABS: Appearance Urine Cloudy; Color Urine Dark Yellow; Glucose Urine UA >=1000 mg/dL (Negative); Leukocyte Esterase Urine Moderate (2+) (Negative); Nitrite Urine Negative (Negative); Specific Gravity - Urine 1.025 (1.005-1.025); Urine Blood Negative (Negative); Urine Ketones Negative (Negative); Urine Protein Negative (Neg-Trace)
[2021-12-11 17:49] LABS: Bacteria Urine 1+ (None Seen); Hyaline Casts Urine 0-2 /LPF (0-2); Squamous Epithelial Cell Urine >20 /HPF (0-2); UACC Culture Trigger YES; WBC Urine 21-50 /HPF (0-5)
== END 2021-12-11 15:19 | disposition home or self-care (01) ==
LOC: HO.HMGCLDS 15:18
PROVIDERS: PCP Internal Medicine; Visit Provider Internal Medicine
DX: R30.0 Dysuria (principal)
CPT/HCPCS: 81001; 81003; 87086

== ENCOUNTER 2021-12-20 11:08 | Outpatient (REF) | payer MEDICARE, SELFPAY ==
[2021-12-20 14:10] LABS: Appearance Urine Clear; Color Urine Yellow; Glucose Urine UA >=1000 mg/dL (Negative); Leukocyte Esterase Urine Small (1+) (Negative); Nitrite Urine Negative (Negative); Urine Blood Negative (Negative); Urine Ketones Negative (Negative); Urine Protein Negative (Neg-Trace)
[2021-12-20 14:59] LABS: Bacteria Urine None Seen (None Seen); Hyaline Casts Urine 0-2 /LPF (0-2); RBC Urine 0-2 /HPF (0-2); Squamous Epithelial Cell Urine 0-2 /HPF (0-2); UACC Culture Trigger YES; WBC Urine 0-5 /HPF (0-5)
== END 2021-12-20 11:09 | disposition home or self-care (01) ==
LOC: HO.HMGCLDS 11:08
PROVIDERS: PCP Internal Medicine; Visit Provider Internal Medicine
DX: R30.0 Dysuria (principal)
CPT/HCPCS: 81001; 81003; 87086

== ENCOUNTER → 2022-01-09 12:58 | Outpatient (BNVA) | payer MEDICARE, SELFPAY | PROVIDERS: PCP Internal Medicine; Referring Provider Internal Medicine; Visit Provider Internal Medicine | DX: I48.92 Unspecified atrial flutter (principal); I50.31 Acute diastolic (congestive) heart failure; I25.10 Atherosclerotic heart disease of native coronary artery without angina pectoris; I34.1 Nonrheumatic mitral (valve) prolapse; R29.91 Unspecified symptoms and signs involving the musculoskeletal system; Z99.81 Dependence on supplemental oxygen | CPT/HCPCS: 93005; 99212 ==

== ENCOUNTER → 2022-02-12 10:42 | Outpatient (REF) | payer MEDICARE, SELFPAY ==
--- NOTE | 2022-02-12 10:50 | CA_ITS ---
Transthoracic Echocardiogram Patient (Last, First, Middle): Chica Douglas A Gender: Female Date of : 1950 Age: 71 Procedure Date: 02/12/2022 Procedure Type: Transthoracic Echocardiogram Location: OP Height: 167.64 cm Weight: 65.77 kg BSA: 1.74 m2 Heart Rate: bpm BP: 117 / 76 mmHg Multi Disciplined Language Analyst: JOMAR Referring MD: Kimberly Schroeder MD Symptoms: MITRAL REGURGITATION Study Quality: Technically Difficult/contrast ECG Rhythm: Undetermined Conclusions: - The left ventricular systolic function is normal. The visually estimated ejection fraction is between 55-60%. - s/p mitraclip placement. Mild mitral regurgitation (in some images, possibly mild to moderate, but difficult to assess). - Technically limited study due to body habitus. Findings Procedure Information Contrast agent, definity, is being given per protocol without apparent complications. Left Ventricle Normal left ventricular cavity size. There is normal left ventricular wall thickness. The left ventricular systolic function is normal. The visually estimated ejection fraction is between 55-60%. There is no evidence of regional wall motion abnormalities. Diastolic function is indeterminate on the basis of available data. Right Ventricle Normal right ventricular cavity size. There is normal right ventricular systolic function. Atria Atria not well visualized but based on limited images, possibly normal size. Aortic Valve The aortic valve was not well visualized. There is no aortic valve stenosis. There is no aortic valve regurgitation. Mitral Valve The mitral valve was not well visualized. There is mild mitral valve regurgitation. s/p mitraclip placement. Pulmonic Valve The pulmonic valve is likely normal. Tricuspid Valve Normal tricuspid valve structure. There is mild tricuspid valve regurgitation. There is no evidence of pulmonary hypertension. Great Vessels The aorta was not well visualized. Venous The inferior vena cava was not well visualized. The inferior vena cava is normal in size. Pericardium/Pleural There is a trivial pericardial effusion. Prior Study Comparison Changes noted compared to prior study dated: 11/20/2021. s/p mitraclip. Measurements 2D Linear Measurements LVOT Diam: 2.20 3.0+(-)1.3 cm Mitral Valve MV VTI: 0.38 MV Pk [place]: 1.36 MV Mn [place]: 0.82 MV Pk Grad: 7.00 MV Mn Grad: 3.00 MV Pk E: 1.36 MV Decel Time: 470.00 E'Medial: 3.96 E/E' Med: 34.30 PHT: 138.00 MVA PHT: 1.59 Decel Emery: 2.91 LVOT LVOT Diam: 2.20 LVOT Area: 3.80 Diastolic Function MV Pk E: 1.36 E'Medial: 3.96 E/E' Med: 34.30 Right Ventricle TAPSE (mm): 20.70 TVS' [place]: 10.70 Tricuspid Valve TR Pk [place]: 2.77 TR Pk Grad: 31.00 Updated in Other Vendor System with Status of Final Jarett Mendez MD electronically signed on 02/13/2022 5:01:36 PM with status of Final
== END ==
LOC: HO.CARD 10:42
PROVIDERS: PCP Internal Medicine; Visit Provider Internal Medicine Cardiovascular Disease
DX: I34.0 Nonrheumatic mitral (valve) insufficiency (principal)
CPT/HCPCS: 93306; Q9957

== ENCOUNTER 2022-02-13 13:48 | Emergency (ER) | payer MEDICARE, SELFPAY ==
--- NOTE | ~2022-02-13 | XR_ITS ---
EXAMINATION: XR CHEST CLINICAL INFORMATION: Weakness COMPARISON: 11/15/2021 TECHNIQUE: Frontal view of the chest was obtained. FINDINGS: Lungs are mildly hypoinflated. Mild cardiomegaly and pulmonary vascular congestion. The mild vascular/interstitial prominence is similar in appearance compared to 11/15/2021. Blunted appearance of the right lateral costophrenic sulcus suggests presence of small pleural effusion. The retrocardiac area of the left lower lobe is suboptimally evaluated but unchanged compared to 11/15/2021. Also, the left lateral costophrenic sulcus is obscured. There is atherosclerotic calcification of the aorta. Pectus excavatum is better depicted on prior chest CT. Scoliosis of the chronically degenerated thoracolumbar spine. The loss of subacromial space at the right shoulder indicates chronic rotator cuff tear. XR/XR chest 1V IMPRESSION: * Pulmonary vascular congestion and small pleural effusions. * There is likely atelectasis in the retrocardiac area of the left lower lobe. * Overall, the chest remains similar in appearance compared to 11/15/2021.
--- NOTE | ~2022-02-13 | CT_ITS ---
EXAMINATION: CTA ABDOMEN AND PELVIS WITHOUT AND WITH CONTRAST CLINICAL INFORMATION: GI bleed on eliquis TECHNIQUE: Helical imaging was performed in the axial plane through the abdomen and pelvis before and after administration of IV contrast. 80 mL of Omnipaque 350 was administered intravenously. Images were evaluated on independent dedicated 3-D workstation and 3-D images were reconstructed with concurrent radiologist supervision and subsequently interpreted. This CT examination was performed using dose optimization techniques as appropriate, variously including the following: * Automated exposure control * Adjustment of mA and/or kV according to patient size (this includes techniques or standardized protocols for targeted exams where dose is matched to indication/reason for exam; i.e. extremities or head) * Use of iterative reconstruction technique COMPARISON: CT abdomen pelvis 08/12/2019 DLP: 1746 mGy-cm. FINDINGS: VASCULAR: VASCULAR: Visualized Thoracic Aorta: Normal caliber. Moderate exit calcified noncalcified plaque. Abdominal Aorta: The abdominal aorta is of normal contour and caliber without evidence of dissection. Moderate vascular calcifications. Celiac Trunk: Coarse calcifications at the origin. Patent without appreciable stenosis. Mesenteric Arteries: The superior and inferior mesenteric arteries are patent. Moderate calcification of the proximal SMA with mild luminal narrowing. LASHAY is patent. Renal Arteries: There are single renal arteries bilaterally. There is no right-sided and ankle left-sided renal arteries. No evidence of stenosis or dissection. Iliac Arteries: The iliac arteries are normal in course and caliber without evidence of hemodynamically significant stenosis. Venous Structures: The inferior vena cava and portal venous system are without demonstrated abnormalities. NONVASCULAR: LUNG BASES: Small right trace left pleural effusions. Mild bibasilar atelectasis. Pectus excavatum deformity. Metallic device seen in the left ventricle, unchanged. LIVER, GALLBLADDER, BILIARY TREE: The liver is normal in size, shape, and attenuation. No focal hepatic lesion or biliary ductal dilatation is present. The gallbladder is unremarkable with no evidence of radiopaque gallstones, gallbladder wall thickening, or pericholecystic inflammatory changes. PANCREAS: Unremarkable. SPLEEN: Unremarkable. ADRENAL GLANDS: Unremarkable. KIDNEYS AND URETERS: The kidneys are normal in size, shape, and attenuation. No hydronephrosis or hydroureter or calculi seen. No perinephric stranding. BLADDER: Unremarkable. GASTROINTESTINAL TRACT: There is a linear enhancement along the lumen of the lower rectum and anal cavity on the arterial phase and slightly more amorphous appearing on the two-minute delay specious for source of active GI bleeding. No other contrast extravasation identified elsewhere. No dilated bowel loops. No bowel wall thickening. Normal appendix. No ascites or free air. ABDOMINAL WALL: Small fat-containing umbilical hernia. LYMPH NODES: No lymphadenopathy. PELVIC VISCERA: Status post hysterectomy. OSSEOUS STRUCTURES: S-shaped scoliotic curvature the thoracolumbar spine with multilevel degenerative disc disease. Vertebral body hemangiomas facet T10, T11, and L1. Sacral meningeal cyst noted. CT/CT gi bleed abd pel wo/w IVcon IMPRESSION: 1. Findings suspicious for active GI bleeding localizing in the lower rectum/anus. Correlate clinically with evidence of bright red blood per rectum. 2. No other contrast extravasation identified. 3. No acute intra-abdominal process identified. 4. Small right and trace left pleural effusions. 5. Additional ancillary findings, as described.
[2022-02-13 13:52] VITALS: BP 132/107; PULSE 71; RESP 18; O2SAT 96; BMI 23.3
--- NOTE | 2022-02-13 14:09 | MHC.CM.ED ---
Received notification from [facility] that patient is active with their agency. [facility] put in chart. Continue to monitor for d/c needs.
--- NOTE | 2022-02-13 14:23 | ECG_ITS ---
Test Reason : WEAKNESS Blood Pressure : / mmHG Vent. Rate : 057 BPM Atrial Rate : 000 BPM P-R Int : 000 ms QRS Dur : 102 ms QT Int : 414 ms P-R-T Axes : 000 056 -20 degrees QTc Int : 402 ms Atrial fibrillation with slow ventricular response Biventricular hypertrophy Nonspecific ST abnormality Abnormal ECG When compared with ECG of 15-NOV-2021 12:00, Atrial fibrillation has replaced Ectopic atrial rhythm Vent. rate has decreased BY 46 BPM T wave inversion no longer evident in Lateral leads Referred By: Yamilet Garcia Electronically Signed By:BERT TRINIDAD MD
--- NOTE | 2022-02-13 14:35 | ED_ITS ---
HPI - Weakness General Chief complaint: General Medical Stated complaint: WEAKNESS X'S DAYS S/P D/C FROM REHAB PER EMS Time Seen by Provider: 02/13/22 13:52 Source: patient and old records reviewed Mode of arrival: EMS Limitations: no limitations History of Present Illness HPI Narrative: 71 yo female with hx of afib on dig and eliquis, anxiety, CHF, osteoporosis reports she just had her MV replaced at [facility] begining of January and was at [facility] until 6 days ago. She was put on cefuroxime and doxyclycine for possible pneumonia and since then she noted some loose stools, lower abdominal pain and not feeling well. The patient reports that over the past 4 days she has had brb per rectum in the toilet with some stool but at times just blood no clots. She thinks she has had bloody episodes x 5 in the last 24 hours. Patient is unsure if it is bleeding external hemorrhoid. MD Complaint: generalized weakness (GIB symptoms. ) Onset (ago): day(s) (4) Duration: constant Location: generalized Migration: none Severity: moderate Quality: dull Relieving factors: none Exacerbating factors: none Context: new medication, recent illness and recent surgery Associated symptoms: loss of appetite and myalgias Related Data Home Medications Medication Instructions Recorded Confirmed alprazolam 0.25 mg tablet 0.25 mg PO BEDTIME 03/09/20 01/09/22 bimatoprost 0.01 % eye drops 1 drp ophthalmic (eye) BEDTIME 06/06/20 01/09/22 dorzolamide 22.3 mg-timolol 6.8 1 drp ophthalmic (eye) BID 11/15/21 01/09/22 mg/mL eye drops furosemide 40 mg tablet 40 mg PO DAILY PRN SWELLING 11/15/21 01/09/22 apixaban 5 mg tablet (Eliquis) 5 mg PO BID 01/09/22 01/09/22 Previous Rx's Medication Instructions Recorded empagliflozin 10 mg tablet 10 mg PO DAILY 30 days #30 tabs 12/15/21 (Jardiance) spironolactone 25 mg tablet 12.5 mg PO DAILY 30 days #15 tabs 12/15/21 metoprolol tartrate 25 mg tablet 75 mg PO BID #180 tabs 01/02/22 digoxin 125 mcg (0.125 mg) tablet 125 mcg PO DAILY #90 tabs 01/10/22 Allergies Allergy/AdvReac Type Severity Reaction Status Date / Time ciprofloxacin [CIPROFLOXACIN] Allergy Intermediate RASH Verified 01/09/22 13:12 atorvastatin [Lipitor] Allergy Unknown unknown Verified 01/09/22 13:12 Penicillins [PENICILLINS] Allergy Unknown RASH Verified 01/09/22 13:12 shellfish derived Allergy Unknown UNKNOWN Verified 01/09/22 13:12 [SHELLFISH DERIVED] Sulfa (Sulfonamide Allergy Unknown ITCHY, ? Verified 01/09/22 13:12 Antibiotics) [SULFA (SULFONAMIDE ANTIBIOTICS)] Review of Systems Review of Systems: Constitutional : No Weight loss, No Fever, No Chills ENT/Mouth : No sore throat, No Rhinorrhea Eyes: No Swelling, No Redness Cardiovascular : No Chest Pain, No SOB, NoEdema Respiratory : No Cough, No Sputum, No Wheezing Gastrointestinal : Positive Nausea, no Vomiting, positive Diarrhea, positive abdominal Pain, pos Hematochezia, No Melena Genitourinary : No Dysuria, No Urinary Frequency, No Hematuria, No Urgency Musculoskeletal : No joint pain, No Myalgias, No Joint Swelling Skin : No Skin Lesions, No rash Neuro : pos Weakness, No Numbness, No Dizziness, No Headache Psych : No Anxiety/Panic, No Depression Heme/Lymph: No Bruising, No Lymphadenopathy Endocrine : No Polyuria, No Polydipsia All other systems reviewed and are negative. [facility] Past Medical History Attestation statement: The following information was validated with the patient. Medical History Anxiety Atherosclerotic cardiovascular disease History of non-ST elevation myocardial infarction (NSTEMI) Marfanoid habitus Myxomatous mitral valve PAF (paroxysmal atrial fibrillation) Paroxysmal atrial flutter Surgical History H/O mitral valve repair History of cardioversion Family History Family History Father No problems noted. Mother No problems noted. Social History Social History Household Members: Family Household Members Other:: son Housing: House Do you presently have visiting nurse or other home services: No Alcohol intake: never Patient Tobacco Use Status: Former Tobacco user Smoked in Last 30 Days: No Use of substances other than those prescribed or required for medical reasons: No Advance Directives: No service: No Current occupational status: retired Physical Exam Vital Signs: Vital Signs: Last Vital Signs Temp 98.9 F 02/13/22 15:31 Pulse 56 02/13/22 15:31 Resp 19 02/13/22 15:31 BP 102/61 02/13/22 15:31 Pulse Ox 99 02/13/22 15:31 O2 Del Method 02/13/22 15:31 BMI result Body Mass Index 23.3 Appearance: Alert. Oriented X3. No acute distress. Eyes: Pupils equal, round and reactive to light. ENT: Pharynx normal. Neck: Normal inspection. Neck supple. CVS: irregular heart rate and rhythm. Pulses normal. Respiratory: No respiratory distress. Breath sounds normal. Abdomen: Soft and distended lower abdomen no peritoneal signs but has mild ttp in lower abdomen Rectal: multiple ext hemorrhoids, one smaller hemorrhoid that is thrombosed I can see the area where it was bleeding but no johnny blood now Skin: Skin warm and dry. pale skin color. Normal skin turgor. Extremities: No lower extremity edema. No calf ttp Neuro: Oriented X 3. No motor deficit. No sensory deficit. Course Course Course Narrative: signed out to Dr. Valencia pending workup MDM - Weakness MDM Narrative Medical decision making narrative: 71 yo female with hx of afib on dig and eliquis, anxiety, CHF, osteoporosis here with c/o lower GIB symptoms possible from external hemorrhoid which seems most likely given physical exam vs colitis from recent antibiotic use. Will obtain labs, CT scan for GI bleed protocol, declines pain medications. If the patient has negative workup and is stable will discuss referral back to rehab as she feels weak at home. Lab Data Result diagrams: 02/13/22 15:01 02/13/22 15: Labs: Lab Results 02/13/22 02/13/22 02/13/22 Range/Units 15: 15: 15: WBC 5.0 (4.8-10.8) X10*3/uL RBC 4.19 L (4.20-5.50) X10*6/uL Hgb 11.8 L (12.0-16.0) g/dl Hct 39.2 (37.0-47.0) % MCV 93.6 (80.0-98.0) fL MCH 28.2 (27.0-33.0) pg MCHC 30.1 L (31.0-35.0) g/dl RDW 16.4 H (11.0-16.0) % Plt Count 126 L D (160-400) X10*3/uL MPV 9.7 (9.4-12.3) fL Immature Gran % (Auto) 0.2 (0.0-0.4) % Neut % (Auto) 63.2 (45-73) % Lymph % (Auto) 19.9 L (20-40) % [place] % (Auto) 15.1 H (2-11) % Eos % (Auto) 1.2 (0-4) % Baso % (Auto) 0.4 (0-2) % Lymph # (Auto) 1.0 L (1.2-4.9) X10*3/uL [place] # (Auto) 0.8 (0.1-1.2) X10*3/uL Eos # (Auto) 0.1 (0.0-0.4) X10*3/uL Baso # (Auto) 0.0 (0.0-0.2) X10*3/uL Abs Immat Gran (auto) 0.01 (0.00-0.03) X10*3/uL Absolute Neuts (auto) 3.2 (2.0-8.3) x10*3/uL Absolute Nucleated RBC 0.000 (0.0-0.012) X10*3/uL Nucleated RBC % (auto) 0.0 (0.0-0.2) /100WBC PT (10.0-13.1) SEC INR (0.9-1.1) APTT (26.0-36.4) SEC Sodium 142 (135-145) mmol/L Potassium 3.4 (3.3-5.1) mmol/L Chloride 89 L (96-108) mmol/L Carbon Dioxide 41 H* D (22-29) mmol/L Anion Gap 15 (12-20) BUN 15 (9-16) mg/dL Creatinine 0.62 (0.5-1.4) mg/dL Estim Creat Clear Calc 72.7 Estimated GFR > 60 Random Glucose 82 (60-115) mg/dL Lactic Acid (0.5-2.0) mmol/L Calcium 9.0 (8.4-10.2) mg/dL Magnesium 2.0 (1.6-2.6) mg/dL Total Bilirubin 1.2 H (0.0-1.0) mg/dL Direct Bilirubin 0.5 (0.0-0.5) mg/dL AST 17 (5-31) U/L ALT 9 (0-31) U/L Alkaline Phosphatase 59 (39-117) U/L Troponin I High Sens (<3.5-17.0) ng/L Total Protein 6.2 L (6.5-8.0) g/dL Albumin 3.5 (3.5-5.0) g/dL Lipase 31 (8-78) U/L Digoxin 0.8 (0.8-2.0) ng/mL COVID-19 (SUZY) (Negative) COVID-19 Clin Com Blood Type Antibody Screen 02/13/22 02/13/22 02/13/22 Range/Units 15:01 15:01 15:01 WBC (4.8-10.8) X10*3/uL RBC (4.20-5.50) X10*6/uL Hgb (12.0-16.0) g/dl Hct (37.0-47.0) % MCV (80.0-98.0) fL MCH (27.0-33.0) pg MCHC (31.0-35.0) g/dl RDW (11.0-16.0) % Plt Count (160-400) X10*3/uL MPV (9.4-12.3) fL Immature Gran % (Auto) (0.0-0.4) % Neut % (Auto) (45-73) % Lymph % (Auto) (20-40) % [place] % (Auto) (2-11) % Eos % (Auto) (0-4) % Baso % (Auto) (0-2) % Lymph # (Auto) (1.2-4.9) X10*3/uL [place] # (Auto) (0.1-1.2) X10*3/uL Eos # (Auto) (0.0-0.4) X10*3/uL Baso # (Auto) (0.0-0.2) X10*3/uL Abs Immat Gran (auto) (0.00-0.03) X10*3/uL Absolute Neuts (auto) (2.0-8.3) x10*3/uL Absolute Nucleated RBC (0.0-0.012) X10*3/uL Nucleated RBC % (auto) (0.0-0.2) /100WBC PT 17.6 H (10.0-13.1) SEC INR 1.5 H (0.9-1.1) APTT 32.1 (26.0-36.4) SEC Sodium (135-145) mmol/L Potassium (3.3-5.1) mmol/L Chloride (96-108) mmol/L Carbon Dioxide (22-29) mmol/L Anion Gap (12-20) BUN (9-16) mg/dL Creatinine (0.5-1.4) mg/dL Estim Creat Clear Calc Estimated GFR Random Glucose (60-115) mg/dL Lactic Acid 1.6 (0.5-2.0) mmol/L Calcium (8.4-10.2) mg/dL Magnesium (1.6-2.6) mg/dL Total Bilirubin (0.0-1.0) mg/dL Direct Bilirubin (0.0-0.5) mg/dL AST (5-31) U/L ALT (0-31) U/L Alkaline Phosphatase (39-117) U/L Troponin I High Sens (<3.5-17.0) ng/L Total Protein (6.5-8.0) g/dL Albumin (3.5-5.0) g/dL Lipase (8-78) U/L Digoxin (0.8-2.0) ng/mL COVID-19 (SUZY) Negative (Negative) COVID-19 Clin Com See Note Blood Type Antibody Screen 02/13/22 02/13/22 Range/Units 15:01 15:01 WBC (4.8-10.8) X10*3/uL RBC (4.20-5.50) X10*6/uL Hgb (12.0-16.0) g/dl Hct (37.0-47.0) % MCV (80.0-98.0) fL MCH (27.0-33.0) pg MCHC (31.0-35.0) g/dl RDW (11.0-16.0) % Plt Count (160-400) X10*3/uL MPV (9.4-12.3) fL Immature Gran % (Auto) (0.0-0.4) % Neut % (Auto) (45-73) % Lymph % (Auto) (20-40) % [place] % (Auto) (2-11) % Eos % (Auto) (0-4) % Baso % (Auto) (0-2) % Lymph # (Auto) (1.2-4.9) X10*3/uL [place] # (Auto) (0.1-1.2) X10*3/uL Eos # (Auto) (0.0-0.4) X10*3/uL Baso # (Auto) (0.0-0.2) X10*3/uL Abs Immat Gran (auto) (0.00-0.03) X10*3/uL Absolute Neuts (auto) (2.0-8.3) x10*3/uL Absolute Nucleated RBC (0.0-0.012) X10*3/uL Nucleated RBC % (auto) (0.0-0.2) /100WBC PT (10.0-13.1) SEC INR (0.9-1.1) APTT (26.0-36.4) SEC Sodium (135-145) mmol/L Potassium (3.3-5.1) mmol/L Chloride (96-108) mmol/L Carbon Dioxide (22-29) mmol/L Anion Gap (12-20) BUN (9-16) mg/dL Creatinine (0.5-1.4) mg/dL Estim Creat Clear Calc Estimated GFR Random Glucose (60-115) mg/dL Lactic Acid (0.5-2.0) mmol/L Calcium (8.4-10.2) mg/dL Magnesium (1.6-2.6) mg/dL Total Bilirubin (0.0-1.0) mg/dL Direct Bilirubin (0.0-0.5) mg/dL AST (5-31) U/L ALT (0-31) U/L Alkaline Phosphatase (39-117) U/L Troponin I High Sens 10.0 D (<3.5-17.0) ng/L Total Protein (6.5-8.0) g/dL Albumin (3.5-5.0) g/dL Lipase (8-78) U/L Digoxin (0.8-2.0) ng/mL COVID-19 (SUZY) (Negative) COVID-19 Clin Com Blood Type O Positive Antibody Screen NEGATIVE ECG Data Attestation: I personally reviewed and interpreted this ECG as follows: ECG interpretation date: 02/13/22 ECG interpretation time: 15:43 Interpretation: Rate: 57 Rhythm: afib [place]: normal Normal QRS complex. ST T wave : no BINDU, nonspecific qTC: normal prior studies: no acute ischemia The study has been interpreted contemporaneously by me. . Discharge Plan Discharge Clinical Impression: Weakness, Bleeding hemorrhoid Patient Disposition: Still a Patient Prescriptions: No Action Jardiance 10 mg tablet 10 mg PO DAILY 30 Days Qty: 30 5RF spironolactone 25 mg tablet 12.5 mg PO DAILY 30 Days Qty: 15 5RF Protocol: Hold for SBP< HOLD for SBP < : 90 metoprolol tartrate 25 mg tablet 75 mg PO BID Qty: 180 5RF digoxin 125 mcg (0.125 mg) tablet 125 mcg PO DAILY Qty: 90 3RF dorzolamide-timolol 22.3-6.8 mg/mL drops 1 drp ophthalmic (eye) BID furosemide 40 mg tablet 40 mg PO DAILY PRN (Reason: SWELLING) bimatoprost 0.01 % drops 1 drp ophthalmic (eye) BEDTIME alprazolam 0.25 mg tablet 0.25 mg PO BEDTIME Eliquis 5 mg tablet 5 mg PO BID
[2022-02-13 15:12] LABS: MANUAL DIFF FLAG NO
[2022-02-13 15:14] LABS: Basophils Percent Auto 0.4 % (0-2); Eosinophils Absolute Auto 0.1 X10*3/uL (0.0-0.4); Eosinophils Percent Auto 1.2 % (0-4); Hematocrit 39.2 % (37.0-47.0); Hemoglobin 11.8 g/dl (12.0-16.0); Imm Gran Abs Auto 0.01 X10*3/uL (0.00-0.03); Imm Gran Pct Auto 0.2 % (0.0-0.4); Lymphocytes Percent Auto 19.9 % (20-40); Mean Corpuscular HGB Conc 30.1 g/dl (31.0-35.0); Mean Corpuscular Hemoglobin 28.2 pg (27.0-33.0); Mean Corpuscular Volume 93.6 fL (80.0-98.0); Mean Platelet Volume 9.7 fL (9.4-12.3); Monocytes Absolute Auto 0.8 X10*3/uL (0.1-1.2); Monocytes Percent Auto 15.1 % (2-11); Neutrophils Absolute Auto 3.2 x10*3/uL (2.0-8.3); Neutrophils Percent Auto 63.2 % (45-73); Platelet Count 126 X10*3/uL (160-400); Red Blood Count 4.19 X10*6/uL (4.20-5.50); Red Cell Distribution Width 16.4 % (11.0-16.0)
[2022-02-13 15:22] LABS: INTERNATIONAL NORM RATIO 1.5 (0.9-1.1); Prothrombin Time 17.6 SEC (10.0-13.1)
[2022-02-13 15:25] LABS: Partial Thromboplastin Time 32.1 SEC (26.0-36.4)
[2022-02-13 15:28] LABS: Lactic Acid 1.6 mmol/L (0.5-2.0)
[2022-02-13] MEDS: Pramoxine HCl 1 % Rectal Foam 15 GM 1 APPL PR (15:29)
[2022-02-13] MEDS: 0.9 % Sodium Chloride 500 ML IV (15:29)
[2022-02-13 15:30] LABS: COVID-19 Test Negative (Negative); IDNOW Serial# 16C4AD1C
[2022-02-13 15:31] VITALS: BP 102/61; PULSE 56; RESP 19; TEMP 37.2; O2SAT 99
--- NOTE | 2022-02-13 15:42 | PC.NURSE ---
Report received from FELECIA Abdullahi Pt currently resting on stretcher with no complaints. States hemorrhoid pain is 6/10. Applied barrier foam per MAR, pt tolerated well. Pt states pain is actively decreasing.
[2022-02-13 16:00] LABS: Digoxin 0.8 ng/mL (0.8-2.0)
[2022-02-13 16:04] LABS: Alanine Aminotransferase 9 U/L (0-31); Albumin Level 3.5 g/dL (3.5-5.0); Alkaline Phosphatase 59 U/L (39-117); Anion Gap 15 (12-20); Aspartate Amino Transferase 17 U/L (5-31); Bilirubin Direct 0.5 mg/dL (0.0-0.5); Bilirubin Total 1.2 mg/dL (0.0-1.0); Blood Urea Nitrogen 15 mg/dL (9-16); Carbon Dioxide 41 mmol/L (22-29); Chloride 89 mmol/L (96-108); Creatinine Clr Calc Pharmacy 72.7; Estimated Glomerular Filt Rate > 60; Glucose Random 82 mg/dL (60-115); Lipase 31 U/L (8-78); Potassium 3.4 mmol/L (3.3-5.1); Sodium 142 mmol/L (135-145); Total Protein 6.2 g/dL (6.5-8.0)
[2022-02-13 16:25] LABS: B Type Natriuretic Peptide 372 pg/mL (<100)
[2022-02-13] MEDS: iohexoL 350 MG/ML 100 ML INFUS..BTL IV (17:38)
--- NOTE | 2022-02-13 17:46 | PC.NURSE ---
Pt up to commode with PCT Pj
[2022-02-13 18:17] VITALS: PULSE 62; RESP 16; TEMP 36.8; O2SAT 98
[2022-02-13 19:01] VITALS: BP 101/40; BP 95/59; PULSE 57; PULSE 77
[2022-02-13 19:02] VITALS: BP 103/57; PULSE 67
[2022-02-13 19:28] LABS: Appearance Urine Clear; Color Urine Yellow; Glucose Urine UA Negative (Negative); Leukocyte Esterase Urine Negative (Negative); Nitrite Urine Negative (Negative); PH 6.5 (5.0-9.0); Specific Gravity - Urine >= 1.030 (1.005-1.025); Urine Blood Negative (Negative); Urine Ketones Trace mg/dL (Negative); Urine Protein Negative (Neg-Trace)
== END 2022-02-13 21:31 | disposition home or self-care (01) ==
PROVIDERS: Internal Medicine; Emergency Provider Emergency Medicine; PCP Internal Medicine
DX: K64.5 Perianal venous thrombosis (principal); K64.4 Residual hemorrhoidal skin tags; R53.1 Weakness; R10.9 Unspecified abdominal pain; Z20.822 Contact with and (suspected) exposure to COVID-19; I48.0 Paroxysmal atrial fibrillation; Z79.01 Long term (current) use of anticoagulants; Z79.899 Other long term (current) drug therapy; Z87.891 Personal history of nicotine dependence
CPT/HCPCS: 36415; 71045; 74178; 80048; 80076; 80162; 81003; 83605; 83690; 83735; 83880; 84484; 85014; 85018; 85025; 85610; 85730; 86850; 86900; 86901; 87635; 93005; 96360; 99284; 99285; Q9967

== ENCOUNTER → 2022-02-15 09:06 | Outpatient (BNVA) | payer MEDICARE, SELFPAY | PROVIDERS: PCP Internal Medicine; Visit Provider Surgery | DX: K64.9 Unspecified hemorrhoids (principal) | CPT/HCPCS: 99202 ==

== ENCOUNTER → 2022-02-22 09:52 | Outpatient (BNVA) | payer MEDICARE, SELFPAY | PROVIDERS: PCP Internal Medicine; Visit Provider Surgery | DX: K64.9 Unspecified hemorrhoids (principal) | CPT/HCPCS: 99212 ==

== ENCOUNTER → 2022-02-27 14:08 | Outpatient (BNVA) | payer MEDICARE, SELFPAY | PROVIDERS: PCP Internal Medicine; Referring Provider Internal Medicine; Visit Provider Internal Medicine | DX: I50.32 Chronic diastolic (congestive) heart failure (principal); I48.19 Other persistent atrial fibrillation; I25.10 Atherosclerotic heart disease of native coronary artery without angina pectoris; R29.91 Unspecified symptoms and signs involving the musculoskeletal system; Z98.890 Other specified postprocedural states; Z95.818 Presence of other cardiac implants and grafts; Z99.81 Dependence on supplemental oxygen | CPT/HCPCS: 93005; 99212 ==

== ENCOUNTER 2022-04-14 11:56 | Outpatient (REF) | payer MEDICARE, SELFPAY ==
[2022-04-14 12:12] LABS: Appearance Urine Clear; Color Urine Yellow; Glucose Urine UA Negative (Negative); Leukocyte Esterase Urine Moderate (2+) (Negative); Nitrite Urine Negative (Negative); PH 5.5 (5.0-9.0); Specific Gravity - Urine 1.015 (1.005-1.025); UMIC TRIGGER UACC YES; Urine Blood Negative (Negative); Urine Ketones Negative (Negative); Urine Protein Trace mg/dL (Neg-Trace)
[2022-04-14 12:21] LABS: Bacteria Urine None Seen (None Seen); Hyaline Casts Urine 0-2 /LPF (0-2); UACC Culture Trigger YES; WBC Urine >50 /HPF (0-5)
== END 2022-04-14 11:57 | disposition home or self-care (01) ==
LOC: HO.LNP 11:56
PROVIDERS: Visit Provider Internal Medicine
DX: R30.9 Painful micturition, unspecified (principal)
CPT/HCPCS: 81001; 87086; 87088; 87186